=== PATIENT | male | born 1955 | race Caucasian/White ===

== ENCOUNTER 2019-08-26 14:56 | Inpatient (IN) | payer OTHER ==
--- NOTE | 2019-08-26 15:37 | PDOC ---
History of Present Illness - General Chief Complaint: Pain, Acute Stated Complaint: ABD PAIN, VOMITING History Source: Patient Exam Limitations: No Limitations - History of Present Illness Initial Comments: Grady is a 64 yo M w a hx of crohns disease who presents to the [facility] er with left sided abdominal pain which began 2 days prior on . Patient states that mid afternoon he ate some eggplant parmesan which he thinks was bad and afterwards the patient began having left sided lower abdominal pain. The pain was associated with nausea but no emesis. He reports the pain was around 6/10 and stayed the same for 2 days until this morning when he took omeprazole and tums which made him feel better. The patient had no diarrhea but had associated constipation for which he took some laxatives and experienced relief. The patient reports not experiencing a crohns exacerbation in the past 10 years. Patient also has been experiencing chills and sweats on and off for the past 2 days. - Takes bisalizine as daily controller medication for crohns. (4 pills BID) Denies fevers, headache, vomiting, diarrhea, chest pain, SOB, difficulty breathing, dysuria, frequency, urgency, back pain PCP: Christina Coello GI: Dr. Chun PSH: Cyst removals from arms Social Hx: Recreational drinker. Denies smoking or illicit drug usage Allergies: Penicillins Past History - Medical History Allergies/Adverse Reactions: Allergies Allergy/AdvReac Type Severity Reaction Status Date / Time Penicillins Allergy Mild Verified 09/10/12 18:43 Home Medications: Ambulatory Orders Doxycycline Hyclate [Vibramycin -] 100 mg PO BID #14 capsule 09/10/12 Mesalamine [Asacol] mg PO 09/10/12 COPD: No GI Disorders: Yes (crohn's) - Immunization History Immunization Up to Date: No - Psycho-Social/Smoking History Smoking Status: No Smoking History: Never smoked Have you smoked in the past 12 months: No Number of Cigarettes Smoked Daily: 0 Information on smoking cessation initiated: No - Substance Abuse Hx (Audit-C & DAST Scrn) How often the patient has a drink containing alcohol: 2-4 times / month Number of drinks the patient has on a typical day: 1 or 2 How often the patient has six or more drinks on one occasion: Monthly Score: In Men: 4 or > Positive; In Women: 3 or > Positive: 4 Screen Result (Pos requires Nsg. Audit-10AR): Positive In the last yr the pt used illegal drug/Rx for NonMed reason: No Score: Yes response is considered Positive: 0 Screen Result (Positive result requires Nsg. DAST-10): Negative Review of Systems - Review of Systems Able to Perform ROS?: Yes Comments:: CONSTITUTIONAL: Present: Chills, loss of appetitie Absent: fever, diaphoresis, generalized weakness, malaise HEENT: Absent: rhinorrhea, nasal congestion, throat pain, throat swelling, difficulty swallowing, mouth swelling, ear pain, eye pain, visual Changes CARDIOVASCULAR: Absent: chest pain, syncope, palpitations, irregular heart rate, lightheadedness, peripheral edema RESPIRATORY: Absent: cough, shortness of breath, dyspnea with exertion, orthopnea, wheezing, stridor, hemoptysis GASTROINTESTINAL: Present: Abdominal pain, nausea, constipation Absent: abdominal distension, vomiting, diarrhea, melena, hematochezia GENITOURINARY: Absent: dysuria, frequency, urgency, hesitancy, hematuria, flank pain, genital pain MUSCULOSKELETAL: Absent: myalgia, arthralgia, joint swelling SKIN: Absent: rash, itching, pallor HEMATOLOGIC/IMMUNOLOGIC: Absent: easy bleeding, easy bruising, lymphadenopathy, frequent infections ENDOCRINE: Absent: unexplained weight gain, unexplained weight loss, heat intolerance, cold intolerance NEUROLOGIC: Absent: headache, focal weakness or paresthesias, dizziness, unsteady gait, seizure, mental status changes, bladder or bowel incontinence PSYCHIATRIC: Absent: anxiety, depression, suicidal or homicidal ideation, hallucinations. *Physical Exam - Vital Signs Last Vital Signs Temp Pulse Resp BP Pulse Ox 98.8 F 92 H 16 125/92 99 08/26/19 14:58 08/26/19 14:58 08/26/19 14:58 08/26/19 14:58 08/26/19 14:58 - Physical Exam GENERAL: Well developed, well nourished. Awake and alert. No acute distress. HEENT: Normocephalic, atraumatic. PERRLA, EOMI. No conjunctival pallor. Sclera are non- icteric. Moist mucous membranes. Oropharynx is clear. NECK: Supple. Full ROM. CARDIOVASCULAR: Regular rate and rhythm. No murmurs, rubs, or gallops. Distal pulses are 2+ and symmetric. PULMONARY: No evidence of respiratory distress. Lungs clear to auscultation bilaterally. No wheezing, rales or rhonchi. ABDOMINAL: There is mild LLQ abdominal TTP with deep palpation. Abdomen is soft, not rigid. There are no peritoneal signs. No guarding or rebound. Normal bowel sounds. Overall, abdomen is soft non-distended. There is no tenderness in the abdomen anywhere other than the LLQ. GENITOURINARY: No testicular TTP. No perineal erythema. No hernia appreciated. b/l cremasteric intact. MUSCULOSKELETAL: Normal range of motion at all joints. No bony deformities or tenderness. No CVA tenderness. EXTREMITIES: No cyanosis. No clubbing. No edema. No calf tenderness. SKIN: Warm and dry. Normal capillary refill. No rashes. No jaundice. NEUROLOGICAL: Alert, awake, appropriate. Cranial nerves 2-12 intact. No deficits to light touch in face, upper extremities and lower extremities. No motor deficits in the in face, upper extremities and lower extremities. Normal speech. Gait is normal without ataxia. PSYCHIATRIC: Cooperative. Good eye contact. Appropriate mood and affect. ED Treatment Course - LABORATORY CBC & Chemistry Diagram: 08/26/19 16:07 08/26/19 16:07 Medical Decision Making - Medical Decision Making Grady is a 64 yo M w a hx of crohns disease who presents to the [facility] er with left sided abdominal pain which began 2 days prior on . Patient states that mid afternoon he ate some eggplant parmesan which he thinks was bad and afterwards the patient began having left sided lower abdominal pain. The pain was associated with nausea but no emesis. He reports the pain was around 6/10 an d stayed the same for 2 days until this morning when he took omeprazole and tums which made him feel better. The patient had no diarrhea but had associated constipation for which he took some laxatives and experienced relief. The patient reports not experiencing a crohns exacerbation in the past 10 years. Patient also has been experiencing chills and sweats on and off for the past 2 days. Vital Signs Temp Pulse Resp BP Pulse Ox 98.8 F 92 H 16 125/92 99 08/26/19 14:58 08/26/19 14:58 08/26/19 14:58 08/26/19 14:58 08/26/19 14:58 DDx IBNLT: Gastroenteritis, Crohns disease exacerbation, Crohn's complication - abscess, diverticulitis, fistula, obstruction, electrolyte/metabolic disturbance, hernia, UTI, pylo Plan: Labs, urine, CTAP, analgesia, IV hydration, re-assess Labs: Elevated WBC count to 20 Urine: Unremarkable CTAP: Intussisception Re-assessment: Patient made aware of diagnosis and plan for surgical consult, likely surgery, and admission to hospital Surgical Consult: I spoke with Dr. Herrera who is aware of patient and will fol low case and potentially do surgery on patient when deemed appropriate - NPO - IV hydration - Cefazolin Disposition: Admit - COVID swab - Spoke with patient and family at length regarding diagnosis and treatment plan. Discharge - Discharge Information Problems reviewed: Yes Clinical Impression/Diagnosis: Intussusception Abdominal pain Qualifiers: Abdominal location: left lower quadrant Qualified Code(s): R10.32 - Left lower quadrant pain Condition: Stable - Admission Yes - Follow up/Referral - Patient Discharge Instructions - Post Discharge Activity
[2019-08-26] MEDS ORDERED: SODIUM CHLORIDE 1,000 ML IV STA (15:54)
[2019-08-26] MEDS ORDERED: FAMOTIDINE 20 MG/50 ML IVPB 20 MG/50 ML MG IVPB ONE ×2 (15:54→16:27)
[2019-08-26] MEDS ORDERED: ACETAMINOPHEN 1000 MG/100 ML VIAL (NON FORMULARY) IVPB ONE (15:54)
[2019-08-26] MEDS ORDERED: ONDANSETRON 4 MG/2 ML VIAL IVPUSH ONE (15:55)
[2019-08-26] MEDS ORDERED: ACETAMINOPHEN INJECTION 100 ML IVPB ONE (16:01)
[2019-08-26 16:20] LABS: BASO % 0.1 % (0-2.0); HEMATOCRIT 45.1 % (35.4-49); LYMPH % 7.2 % (8-40); MCH 31.4 pg (25.7-33.7); MCHC 33.3 g/dl (32.0-35.9); MEAN CELL VOLUME 94.3 fl (80-96); MEAN PLT VOLUME 7.5 fl (7.5-11.1); NEUT % 82.7 % (42.8-82.8); PLATELET COUNT 336 K/MM3 (134-434); RBC 4.78 M/mm3 (4.00-5.60); RDW 13.1 % (11.9-15.9); WHITE BLOOD COUNT 20.3 K/mm3 (4.0-10.0)
[2019-08-26 16:27] LABS: INR 1.15 (0.83-1.09); PROTHROMBIN TIME (PATIENT) 13.6 SEC (9.7-13.0)
[2019-08-26 16:29] LABS: ACTIVATED PTT 28.5 SECONDS (25.2-36.5)
[2019-08-26 16:48] LABS: PLATELET ESTIMATE ADEQUATE
[2019-08-26] MEDS ORDERED: MAG HYDROX/AL HYDROX/SIMETH -MYLANTA- ORAL SUSPENSION PO ONE (17:12)
[2019-08-26] MEDS ORDERED: METOCLOPRAMIDE HCL INJECTION 10 MG/2 ML VIAL IVPUSH ONE (17:13)
[2019-08-26] MEDS ORDERED: METOCLOPRAMIDE HCL INJECTION 10 MG/2 ML VIAL ONE (17:16)
[2019-08-26] MEDS ORDERED: MAG HYDROX/AL HYDROX/SIMETH 30 ML UNIT-DOSE CUP ONE (17:16)
[2019-08-26 17:18] LABS: ALBUMIN 4.2 g/dl (3.4-5.0); BLOOD UREA NITROGEN 24.7 mg/dL (7-18); CALCIUM 9.6 mg/dL (8.5-10.1); CREATININE 0.9 mg/dL (0.55-1.3); MAGNESIUM 2.2 mg/dL (1.8-2.4); PHOSPHOROUS 2.7 mg/dL (2.5-4.9); POTASSIUM 3.4 mmol/L (3.5-5.1); TOT PROT 7.1 g/dl (6.4-8.2)
[2019-08-26] MEDS ORDERED: POTASSIUM CHLORIDE ORAL LIQUID 20 MEQ/15 ML PO ONE (17:30)
[2019-08-26] MEDS ORDERED: LACTATED RINGERS SOLUTION 1,000 ML/1,000 ML INFUS.BAG IV ONE (17:30)
[2019-08-26] MEDS ORDERED: POTASSIUM CHLORIDE ORAL LIQUID 20 MEQ/15 ML ONE (18:09)
[2019-08-26] MEDS ORDERED: LACTATED RINGERS SOLUTION 1,000 ML/1,000 ML INFUS.BAG IV STA (19:05)
[2019-08-26 20:36] LABS: PH,URINE 8.5 (5.0-8.0); URINE APPEARANCE Clear; URINE BILIRUBIN Negative (NEGATIVE); URINE COLOR Yellow; URINE GLUCOSE (UA) Negative (NEGATIVE); URINE KETONE Negative (NEGATIVE); URINE LEUK ESTERASE Negative (NEGATIVE); URINE NITRITE Negative (NEGATIVE); URINE PROTEIN Negative (NEGATIVE); URINE UROBILINOGEN 0.2 mg/dL (0.2-1.0)
[2019-08-26 20:55] LABS: EPI CELLS 2.3 /uL (0-25.1); HYALINE CASTS 0.25 /uL (0-3.1); URINE BACTERIA 0.9 /uL (0-1359); URINE RBC 73.6 /uL (0-23.9); URINE WBC 1.9 /uL (0-25.8)
[2019-08-26] MEDS ORDERED: LACTATED RINGERS SOLUTION 1,000 ML/1,000 ML INFUS.BAG IV SCH (21:30)
[2019-08-26] MEDS ORDERED: ceFAZolin 2 GRAM PREMIX BAG IVPB ONE (21:40)
[2019-08-26] MEDS ORDERED: CEFAZOLIN 2 GM/D5W 2 GM/50 ML ML IVPB ONE (21:45)
--- NOTE | 2019-08-26 21:46 | PN ---
Teaching Attending Note Name of Resident: Abad Dumas ATTENDING PHYSICIAN STATEMENT I saw and evaluated the patient. I reviewed the resident's note and discussed the case with the resident. I agree with the resident's findings and plan as documented. SUBJECTIVE: Patient is a 64 year old man with a PMH of Crohn's disease, Hematuria and Penic illin allergy who presents to the ER with left sided abdominal pain for two days. Patient states that mid afternoon he ate some eggplant parmesan which he thinks was bad and afterwards the patient began having left sided lower abdominal pain. The pain was associated with nausea but no emesis. He reports the pain was around 6/10 in intensity and stayed the same for 2 days until this morning when he took Omeprazole and Tums which made him feel better. The patient had no diarrhea but had associated constipation for which he took some laxatives and experienced relief. The patient reports not experiencing a Crohn's exacerbation in the past 10 years. Had a colonoscopy 5 years ago. Patient also has been experiencing chills and sweats on and off for the past two days. Denies fevers, headache, vomiting, diarrhea, chest pain, SOB, difficulty breathing, dysuria, frequency, urgency or back pain. Smokes Marijuana on weekends. Denies alcohol, tobacco or illicit drug use. No sick contacts or recent travels. Patient has a family history of lung cancer in his mother. OBJECTIVE: Alert Vital Signs Period Temp Pulse Resp BP Sys/Hurt Pulse Ox Last 24 Hr 98.8 F 92 16 125/92 99 HEENT: No Jaundice, eye redness or discharge, PERRLA, EOMI. Normocephalic, atraumatic. External ears are normal and hearing is grossly intact. No nasal discharge. Neck: Supple, nontender. No palpable adenopathy or thyromegaly. No JVD Chest: Good effort. Clear to auscultation and percussion. Heart: Regular. No S3, rub or murmur Abdomen: Not distended, soft, LLQ tenderness and no HSM. No rebound or guarding. Normal bowel sounds. Ext: Peripheral pulses intact. No leg edema. Skin: Warm and dry. No petechiae, rash or ecchymosis. Neuro: Alert. Oriented x3. CN 2-12 grossly intact. Sensation grossly intact in all four extremities and DTR are symmetric. Psych: Appropriate mood and affect. Good insight. Home Medications Medication Instructions Recorded Doxycycline Hyclate [Vibramycin -] 100 mg PO BID #14 capsule 09/10/12 Mesalamine [Asacol] mg PO 09/10/12 Abnormal Lab Results 08/26/19 08/26/19 08/26/19 16:07 16:07 16:07 WBC 20.3 H Absolute Neuts (auto) 16.8 H Lymphocytes % 7.2 L PT with INR 13.60 H INR 1.15 H Potassium 3.4 L BUN 24.7 H AST 98 H Troponin I 0.06 H Lipase 417 H Urine pH Urine Blood 08/26/19 20:21 WBC Absolute Neuts (auto) Lymphocytes % PT with INR INR Potassium BUN AST Troponin I Lipase Urine pH 8.5 H Urine Blood 2+ H Current Medications Generic Name Dose Route Start Last Admin Trade Name Freq PRN Reason Stop Dose Admin Lactated Ringer's 1,000 ml in 1,000 mls @ 125 mls/hr 08/26/19 21:30 Lactated Ringers Solution IV ASDIR [facility] ASSESSMENT AND PLAN: 1. Crohn's flare up?/Intussusception - CT scan of abdomen/pelvis with IV and oral contrast showed proximal small bowel intussusception without evidence of bowel obstruction. Will do sepsis workup in view of significant leukocytosis. Will keep him NPO, get CXR, hydrate with IV NS and consult Surgery and GI. Hematuria is concerning - will repeat urinalysis in the morning - consult Urology and Nephrology for further workup. Hypokalemia is unexplained. Will check serum magnesium, give IV KCL. Mild troponin elevation likely due to demand ischemia - will trend troponin. EKG shows NSR at 87/minute and QTc [address]-T wave changes. ER staff prescribed Tylenol, IV Cefazolin, Regl an, KCL, Pepcid, Mylanta, Zofran and IV LR for the patient. Will treat patient with IV Levofloxacin and IV Flagyl, Tylenol PRN and consult ID. Viral testing for COVID-19 ordered and patient placed on airborne, droplet and contact isolation. 2. DVT prophylaxis - Lovenox 40 mg SQ q 24 hours. 3. Advance directives - Full code
[2019-08-26] MEDS ORDERED: CEFAZOLIN 1 GM/D5W 1 GM/50 ML BAG ONE (22:54)
[2019-08-26] MEDS ORDERED: SODIUM CHLORIDE 1,000 ML IV SCH (23:15)
--- NOTE | 2019-08-26 23:20 | HP ---
CHIEF COMPLAINT: Abdominal Pain PCP: Dr. Coello HISTORY OF PRESENT ILLNESS: Pt. is a 64 y.o. M w/ PMHx. of Crohn's Disease ( diagnosed 20+ years ago) presents with intermittent abdominal pain that began after eating an egg plant parmesan sandwich on . Pt. states that he has been having chills and sweats over the last 2 days. Pt. endorses nausea and the inability to take his Crohn's disease medication(Bisalazide) because he has been unable to tolerate PO. Pt. denies any fevers at home, vomiting, diarrhea or overt blood in his stool or urine. PT. endorses weight loss only over the last 2 days because of decreased PO intake. Pt. dneies any sick contacts or anyone one else eating the eggplant parmesean. Pt. stats he got this meal from a usual location and that there was nothing unusual about it. Pt. states that currently his pain has resolved. Upon discussion of hematuria Pt. endorses that at his PCP's office he has had a "little blood" in his urine for a long time now. Pt. 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 Pt. endorses taking Omeprazole and TUMs with minimal relief for the abdominal pain. Pt.s states he had a colonoscopy [address] Chun at [facility] in the [place] but that no polyps or biopsy was performed, in fact he was told his Crohn's Disease appeared better controlled. ER course was notable for: (1)CBC, CM, UA, EKG, CT AP (2) Surgery Consult, IVF, Tylenol, Zofran, Famotidine, T&S, Mylanta (3)KCL, Reglan, COVID swab Recent Travel: No PAST MEDICAL HISTORY: As above PAST SURGICAL HISTORY: LUE Lipoma removal Social History: Smoking: Denies Alcohol: 2.3 beers/ weekend Drugs: Marijuana ("couple joints on the weekend") Pt. 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 Allergies Penicillins Allergy (Mild, Verified 09/10/12 18:43)- Pt. does not know the reaction, only was told as a child not to take Penicillin again. HOME MEDICATIONS: Home Medications Medication Instructions Recorded Doxycycline Hyclate [Vibramycin -] 100 mg PO BID #14 capsule 09/10/12 Mesalamine [Asacol] mg PO 09/10/12 REVIEW OF SYSTEMS As above PHYSICAL EXAMINATION Vital Signs - 24 hr 08/26/19 08/26/19 14:58 22:48 Temperature 98.8 F 98.4 F Pulse Rate 92 H Pulse Rate [ 83 Right Radial] Respiratory 16 Rate Blood Pressure 125/92 Blood Pressure 117/66 [Left Arm] O2 Sat by Pulse 99 98 Oximetry (%) GENERAL: Awake, alert, and fully oriented, in no acute distress. HEAD: Normal with no signs of trauma. EYES: Extraocular movements intact, sclera anicteric, conjunctiva clear. EARS, NOSE, THROAT: Dry mucous membranes. LUNGS: Breath sounds equal, clear to auscultation bilaterally. No wheezes, and no crackles. No accessory muscle use. HEART: Regular rate and rhythm, normal S1 and S2 without murmur ABDOMEN: Soft, nontender, not distended, normoactive bowel sounds, no guarding, no rebound, no masses. UPPER EXTREMITIES: warm, well-perfused. No cyanosis. No clubbing. No peripheral edema. LOWER EXTREMITIES: 2+ dorsal pedal pulses, warm, well-perfused. No calf tenderness. No peripheral edema. NEUROLOGICAL: Normal speech. Normal gait. PSYCHIATRIC: Cooperative. Good eye contact. Appropriate mood and affect. SKIN: Warm, dry, normal turgor Laboratory Results - last 24 hr 08/26/19 08/26/19 08/26/19 16:07 16:07 16:07 WBC 20.3 H RBC 4.78 Hgb 15.0 Hct 45.1 MCV 94.3 MCH 31.4 MCHC 33.3 RDW 13.1 Plt Count 336 MPV 7.5 Absolute Neuts (auto) 16.8 H Neutrophils % 82.7 Neutrophils % (Manual) 76.0 Band Neutrophils % 3.0 Lymphocytes % 7.2 L Lymphocytes % (Manual) 13.0 Monocytes % 10.0 Monocytes % (Manual) 4 Eosinophils % 0.0 Eosinophils % (Manual) 0.0 Basophils % 0.1 Basophils % (Manual) 0.0 Nucleated RBC % 0 Platelet Estimate Adequate PT with INR 13.60 H INR 1.15 H PTT (Actin FS) 28.5 Sodium 138 Potassium 3.4 L Chloride 103 Carbon Dioxide 26 Anion Gap 9 BUN 24.7 H Creatinine 0.9 Est GFR (CKD-EPI)AfAm 105.72 Est GFR (CKD-EPI)NonAf 91.22 Random Glucose 101 Lactic Acid Calcium 9.6 Phosphorus 2.7 Magnesium 2.2 Total Bilirubin 1.0 AST 98 H ALT 44 Alkaline Phosphatase 59 Troponin I 0.06 H Total Protein 7.1 Albumin 4.2 Lipase 417 H Urine Color Urine Appearance Urine pH Ur Specific [place] Urine Protein Urine Glucose (UA) Urine Ketones Urine Blood Urine Nitrite Urine Bilirubin Urine Urobilinogen Ur Leukocyte Esterase Urine WBC (Auto) Urine RBC (Auto) Urine Casts (Auto) U Epithel Cells (Auto) Urine Bacteria (Auto) Blood Type Antibody Screen 08/26/19 08/26/19 08/26/19 16:07 16:07 20:21 WBC RBC Hgb Hct MCV MCH MCHC RDW Plt Count MPV Absolute Neuts (auto) Neutrophils % Neutrophils % (Manual) Band Neutrophils % Lymphocytes % Lymphocytes % (Manual) Monocytes % Monocytes % (Manual) Eosinophils % Eosinophils % (Manual) Basophils % Basophils % (Manual) Nucleated RBC % Platelet Estimate PT with INR INR PTT (Actin FS) Sodium Potassium Chloride Carbon Dioxide Anion Gap BUN Creatinine Est GFR (CKD-EPI)AfAm Est GFR (CKD-EPI)NonAf Random Glucose Lactic Acid 1.4 Calcium Phosphorus Magnesium Total Bilirubin AST ALT Alkaline Phosphatase Troponin I Total Protein Albumin Lipase Urine Color Yellow Urine Appearance Clear Urine pH 8.5 H Ur Specific [place] 1.015 Urine Protein Negative Urine Glucose (UA) Negative Urine Ketones Negative Urine Blood 2+ H Urine Nitrite Negative Urine Bilirubin Negative Urine Urobilinogen 0.2 Ur Leukocyte Esterase Negative Urine WBC (Auto) 1.9 Urine RBC (Auto) 73.6 Urine Casts (Auto) 0.25 U Epithel Cells (Auto) 2.3 Urine Bacteria (Auto) 0.9 Blood Type A POSITIVE Antibody Screen Negative 08/26/19 22:42 WBC RBC Hgb Hct MCV MCH MCHC RDW Plt Count MPV Absolute Neuts (auto) Neutrophils % Neutrophils % (Manual) Band Neutrophils % Lymphocytes % Lymphocytes % (Manual) Monocytes % Monocytes % (Manual) Eosinophils % Eosinophils % (Manual) Basophils % Basophils % (Manual) Nucleated RBC % Platelet Estimate PT with INR INR PTT (Actin FS) Sodium Potassium Chloride Carbon Dioxide Anion Gap BUN Creatinine Est GFR (CKD-EPI)AfAm Est GFR (CKD-EPI)NonAf Random Glucose Lactic Acid Calcium Phosphorus Magnesium Total Bilirubin AST ALT Alkaline Phosphatase Troponin I 0.07 H Total Protein Albumin Lipase Urine Color Urine Appearance Urine pH Ur Specific [place] Urine Protein Urine Glucose (UA) Urine Ketones Urine Blood Urine Nitrite Urine Bilirubin Urine Urobilinogen Ur Leukocyte Esterase Urine WBC (Auto) Urine RBC (Auto) Urine Casts (Auto) U Epithel Cells (Auto) Urine Bacteria (Auto) Blood Type Antibody Screen ASSESSMENT/PLAN: Pt. is a 64 y.o. M w/ PMHx. of Crohn's Disease (diagnosed 20+ years ago) presents with intermittent abdominal pain that began after eating an egg plant parmesan sandwich on . Pt. states that he has been having chills and sweats over the last 2 days. #Intussusception can be 2/2 to Crohns Disease however cannot r/o malignancy which accounts for ~5 0% of cases Surgery consult appreciated c/w Bisalazide once medications confirmed in AM CT A/P: proximal small bowel intussusception, intermittent?, w/o evidence of obstruction. Slides 38-41 show the typical target sign/ telescoping bowel lumen, ED resident discussed with Dr. Maher that there is no evidence of ischemia or inflammation #Hematuria UA: 2+ blood Pt. states he has never been worked up. Extra intestinal manifestation of IBD vs. side effect of ASA? Urology and Nephrology consults appreciated to r/o glomeurolnephritis, Tubulointerstitial nephritis, AA Amyloidosis and IGA Nephropathy (rare to be concomitant with Crohn's disease), most likely 2/2 frequent renal stones which is common in Crohn's Pt.s because of fat malabsorption (binding to calcium in gut lumen and leaving oxalate to be absorbed and deposited in the lumen of the renal tubules) associated also with dehydration from decreased PO intake. Stones can also be Uric acid which would be secondary to increased uptake in injured colon. #Leukocytosis WBC: 20.6 Most likely reactive however with clinical manifestation of chills, moderate suspicion for infection. f/u Blood cultures Given Ancef in ED, will switch to Levaquin and Flagyl for Penicillin allergy #FEN NS@ 75 Hypokalemic to 3.4 on admission, given 40 PO in ED, will add 40 meq to IV, from renal losses? Pt. denies diarrhea or vomiting. Magenisium: 2.2 NPO #DVT Ppx. Lovenox 40 Visit type - Emergency Visit Emergency Visit: Yes ED Registration Date: 08/26/19 Care time: The patient presented to the Emergency Department on the above date and was hospitalized for further evaluation of their emergent condition. - New Patient This patient is new to me today: Yes Date on this admission: 08/26/19 - Critical Care Critical Care patient: No ATTENDING PHYSICIAN STATEMENT I saw and evaluated the patient. I reviewed the resident's note and discussed the case with the resident. I agree with the resident's findings and plan as documented. SUBJECTIVE: OBJECTIVE: ASSESSMENT AND PLAN:
[2019-08-27] MEDS ORDERED: ACETAMINOPHEN 500 MG TABLET (FP) PO ONE (01:04)
[2019-08-27] MEDS ORDERED: MELATONIN 5 MG TABLETS PO ONE (01:04)
[2019-08-27 01:22] VITALS: BMI 25.0
[2019-08-27] MEDS: POTASSIUM CHLORIDE 40 MEQ in SODIUM CHLORIDE 1,000 ML IVPB SCH ×2 (01:36→14:55)
[2019-08-27 07:46] LABS: BASO % 0.2 % (0-2.0); EOS % 0.1 % (0-4.5); HEMATOCRIT 42.5 % (35.4-49); HEMOGLOBIN 14.2 GM/dL (11.7-16.9); LYMPH % 11.1 % (8-40); MCH 31.4 pg (25.7-33.7); MCHC 33.4 g/dl (32.0-35.9); MEAN CELL VOLUME 94.1 fl (80-96); MEAN PLT VOLUME 8.1 fl (7.5-11.1); MONO % 10.7 % (3.8-10.2); NEUT % 77.9 % (42.8-82.8); PLATELET COUNT 289 K/MM3 (134-434); RBC 4.52 M/mm3 (4.00-5.60); RDW 13.2 % (11.9-15.9); WHITE BLOOD COUNT 17.8 K/mm3 (4.0-10.0)
--- NOTE | 2019-08-27 07:50 | CONSULT ---
Consult Consult Specialty:: Nephrology Reason for Consultation:: microscopic hematuria - History of Present Illness Chief Complaint: abdominal pain History of Present Illness: Pt is a 64 year old gentleman with pmhx of crohns disease who presents to the ER with abdominal pain. He was found to have intussusception and was admitted for further surgical management. He also complained of chills and fevers. He was found to have hematuria on ua and I was called to evaluate him. He has had this in the past. He did have a cystoscopy that he says was normal. He denies gross hematuria or dark colored urine. He denies change in urine color when he has an URI. He denies nsaid use. - History Source History Provided By: Patient, Medical Record - Past Medical History Gastrointestinal: Yes: Inflamatory Bowel Disease - Smoking History Smoking history: Current some day smoker Have you smoked in the past 12 months: No Aproximately how many cigarettes per day: 0 Home Medications - Allergies Allergies/Adverse Reactions: Allergies Allergy/AdvReac Type Severity Reaction Status Date / Time Penicillins Allergy Mild Verified 09/10/12 18:43 - Home Medications Home Medications: Ambulatory Orders Doxycycline Hyclate [Vibramycin -] 100 mg PO BID #14 capsule 09/10/12 Mesalamine [Asacol] mg PO 09/10/12 Family Medical History Family History: Denies Review of Systems - Review of Systems Constitutional: reports: Chills, Fever, Malaise Eyes: reports: No Symptoms HENT: reports: No Symptoms Neck: reports: No Symptoms Cardiovascular: reports: No Symptoms Respiratory: reports: No Symptoms Gastrointestinal: reports: Abdominal Pain Genitourinary: reports: No Symptoms Musculoskeletal: reports: No Symptoms Integumentary: reports: No Symptoms Neurological: reports: No Symptoms Endocrine: reports: No Symptoms Hematology/Lymphatic: reports: No Symptoms Psychiatric: reports: No Symptoms Physical Exam Vital Signs: Vital Signs Temperature 98.3 F 08/27/19 05:00 Pulse Rate 70 08/27/19 05:00 Respiratory Rate 18 08/27/19 01:05 Blood Pressure 130/77 08/27/19 05:00 O2 Sat by Pulse Oximetry (%) 96 08/27/19 01:05 Constitutional: Yes: Calm Eyes: Yes: Conjunctiva Clear HENT: Yes: Atraumatic Cardiovascular: Yes: S1, S2 Respiratory: Yes: CTA Bilaterally Gastrointestinal: Yes: Soft Renal/: Yes: WNL Musculoskeletal: Yes: WNL Edema: No Neurological: Yes: Oriented Imaging - Results Cat Scan: Report Reviewed Problem List - Problems (1) Hematuria Code(s): R31.9 - HEMATURIA, UNSPECIFIED (2) Abdominal pain Code(s): R10.9 - UNSPECIFIED ABDOMINAL PAIN Qualifiers: Abdominal location: left lower quadrant Qualified Code(s): R10.32 - Left lower quadrant pain (3) Intussusception Code(s): K56.1 - INTUSSUSCEPTION Assessment/Plan Current Medications Generic Name Dose Route Start Last Admin Trade Name Freq PRN Reason Stop Dose Admin Acetaminophen 1,000 mg 08/27/19 15:00 08/27/19 14:55 Ofirmev Injection - IVPB 08/28/19 09:01 1,000 mg Q6H BLUE Administration Heparin Sodium (Porcine) 5,000 unit 08/28/19 10:00 Heparin - SQ BID BLUE Lactated Ringer's 1,000 ml in 1,000 mls @ 125 mls/hr 08/27/19 14:15 08/27/19 16:22 Lactated Ringers Solution IV Not Given ASDIR BLUE Morphine Sulfate 4 mg 08/27/19 14:25 Morphine Injection - IVPUSH Q4H PRN PAIN LEVEL 1-5 Ondansetron HCl 4 mg 08/27/19 14:05 08/27/19 15:36 Zofran Injection IVPUSH 4 mg Q6H PRN Administration NAUSEA AND/OR VOMITING Impression 1. microscopic hematuria 2. abd pain 3. intussusception 4. crohns disease Plan - hematuria appears chronic - check renal ultrasound when possible - surgery on board for OR today - cont fluids - follow cultures - will need outpt workup - if urology workup was negative and hematuria is glomerular in nature, then he should get workup. IgA is in the differential.
[2019-08-27 07:54] LABS: INR 1.12 (0.83-1.09); PROTHROMBIN TIME (PATIENT) 13.2 SEC (9.7-13.0)
[2019-08-27 08:13] LABS: ALBUMIN 3.8 g/dl (3.4-5.0); BILIRUBIN,TOTAL 1.1 mg/dL (0.2-1); BLOOD UREA NITROGEN 11.7 mg/dL (7-18); CALCIUM 8.9 mg/dL (8.5-10.1); CREATININE 0.8 mg/dL (0.55-1.3); PHOSPHOROUS 2.6 mg/dL (2.5-4.9); POTASSIUM 3.7 mmol/L (3.5-5.1); TOT PROT 6.6 g/dl (6.4-8.2)
--- NOTE | 2019-08-27 09:20 | CONSULT ---
- Consultation REQUESTING PROVIDER: Sara EWING CONSULT REQUEST: We have been asked to surgically evaluate this patient for abdominal pain. PCP:Rosalino Burgess MD HISTORY OF PRESENT ILLNESS: JENNIE who is a 64 yo male w/a h/o Crohns disease who presents to the [facility] ED with left sided abdominal pain which began 2 days ago. Patient states that mid afternoon he ate some eggplant parmesan which he thinks was bad and afterwards the patient began having left sided lower abdominal pain. The pain was associated with nausea but no emesis. He reports the pain was around 6/10 and stayed the same for 2 days until this morning when he took omeprazole and Tums which made him feel better. The patient had no diarrhea but had associated constipation for which he took some laxatives and experienced relief. The patient reports not experiencing a Crohns exacerbation in the past 10 years. Patient also has been experiencing chills and sweats on and off for the past 2 days. Pain is crampy and w/o radiation; he denies any other GI/ c/o's; he has never had a ny abdominal surgery or taken steroids for the Crohns disease; he has had the dx. for ~ 20 years and probably before that. His Crohns was discovered when he had a GI parasite??. PMHx: as above PSHx: sebaceous cyst removal Home Medications Medication Instructions Recorded Doxycycline Hyclate [Vibramycin -] 100 mg PO BID #14 capsule 09/10/12 Mesalamine [Asacol] mg PO 09/10/12 Allergies Allergy/AdvReac Type Severity Reaction Status Date / Time Penicillins Allergy Mild Verified 09/10/12 18:43 REVIEW OF SYSTEMS: CONSTITUTIONAL: Absent: fever, chills, diaphoresis, generalized weakness, malaise, loss of appetite, weight change CARDIOVASCULAR: Absent: chest pain, syncope, palpitations, irregular heart rate, lightheadedness, peripheral edema RESPIRATORY: Absent: cough, shortness of breath, dyspnea with exertion, wheezing, stridor, hemoptysis GASTROINTESTINAL: Present: abdominal pain, abdominal distension, nausea, vomiting, diarrhea, constipation.Absent:melena, hematochezia GENITOURINARY: Absent: dysuria, frequency, urgency, hesitancy, hematuria, flank pain, genital pain MUSCULOSKELETAL: Absent: myalgia, arthralgia, joint swelling, back pain, neck pain SKIN: Absent: rash, itching, pallor HEMATOLOGIC/IMMUNOLOGIC: Absent: easy bleeding, easy bruising, lymphadenopathy NEUROLOGIC: Absent: headache, focal weakness, paresthesias, dizziness, unsteady gait, seizure, mental status changes, bladder or bowel incontinence PSYCHIATRIC: Absent: anxiety, depression, suicidal or homicidal ideation, hallucinations. PHYSICAL EXAM: GENERAL: Awake, alert, and fully oriented, in no slight distress. HEAD: Normal with no signs of trauma. EYES: PERRL, sclera anicteric, conjunctiva clear. NECK: Normal ROM, supple without lymphadenopathy, JVD, or masses. ABDOMEN: Soft, left sided tenderness, not distended, normoactive bowel sounds, no guarding, no rebound, no masses. No organomegaly. No hernias MUSCULOSKELETAL: Normal ROM at all joints. No bony deformities or tenderness. No CVA tenderness. UPPER EXTREMITIES: 2+ pulses, warm, well-perfused. No cyanosis. Cap refill <2 seconds. No peripheral edema. LOWER EXTREMITIES: 2+ pulses, warm, well-perfused. No calf tenderness. No peripheral edema. NEUROLOGICAL: Normal speech, gait not observed. PSYCH: Cooperative. Good eye contact. Appropriate mood and affect. SKIN: Warm, dry, normal turgor, no rashes or lesions noted. Vital Signs Temperature 98.3 F 08/27/19 05:00 Pulse Rate 70 08/27/19 05:00 Respiratory Rate 18 08/27/19 01:05 Blood Pressure 130/77 08/27/19 05:00 O2 Sat by Pulse Oximetry (%) 98 08/27/19 08:44 Lab Results WBC 17.8 K/mm3 (4.0-10.0) H 08/27/19 06:20 RBC 4.52 M/mm3 (4.00-5.60) 08/27/19 06:20 Hgb 14.2 GM/dL (11.7-16.9) 08/27/19 06:20 Hct 42.5 % (35.4-49) 08/27/19 06:20 MCV 94.1 fl (80-96) 08/27/19 06:20 MCHC 33.4 g/dl (32.0-35.9) 08/27/19 06: RDW 13.2 % (11.9-15.9) 08/27/19 06:20 Plt Count 289 K/MM3 (134-434) 08/27/19 06:20 INR 1.12 (0.83-1.09) H 08/27/19 06:20 Sodium 137 mmol/L (136-145) 08/27/19 06:20 Potassium 3.7 mmol/L (3.5-5.1) 08/27/19 06:20 Chloride 102 mmol/L (98-107) 08/27/19 06:20 Carbon Dioxide 25 mmol/L (21-32) 08/27/19 06:20 Anion Gap 11 MMOL/L (8-16) 08/27/19 06:20 BUN 11.7 mg/dL (7-18) 08/27/19 06:20 Creatinine 0.8 mg/dL (0.55-1.3) 08/27/19 06:20 Random Glucose 96 mg/dL (74-106) 08/27/19 06:20 Calcium 8.9 mg/dL (8.5-10.1) 08/27/19 06:20 Blood Type A POSITIVE 08/26/19 22:42 Antibody Screen Negative 08/26/19 22:42 CT scan a/p reviewed IMP: small bowel intussusception w/o evidence of an sbo but w/abdominal tenderness and elevated WBC count. PLAN: D/w the patient that intussusception in an adult is usually related to small bowek pathology which needs to be identified; d/w him laparotomy and possible small bowel resection; r/b/t/a's d/w him and he will give informed consent; to OR today; this may or may not jay related to his Crohns disease. Mert Herrera MD FACS
[2019-08-27] MEDS ORDERED: ENOXAPARIN NA (PORCINE) 40 MG/0.4 ML DISP.SYRIN SQ SCH (10:00)
[2019-08-27] MEDS ORDERED: PROPOFOL 20 ML ONE ×2 (10:52)
[2019-08-27] MEDS ORDERED: ROCURONIUM BROMIDE 50 MG/5 ML SYRINGE ONE ×2 (10:52)
[2019-08-27] MEDS ORDERED: fentaNYL CITRATE 250 MCG/5 ML VIAL ONE (10:52)
[2019-08-27] MEDS ORDERED: MIDAZOLAM HCL 2 MG/2 ML SINGLE DOSE VIAL ONE ×2 (10:52)
[2019-08-27] MEDS ORDERED: SUCCINYLCHOLINE CHLORIDE 200 MG/10 ML SYRINGE ONE (10:52)
[2019-08-27] MEDS ORDERED: BUPIVACAINE LIPOSOME/PF (EXPAREL) 266 MG/20 ML VIAL ONE (10:55)
[2019-08-27] MEDS ORDERED: BUPIVACAINE HCL 100 ML ONE (11:00)
[2019-08-27] MEDS ORDERED: CLINDAMYCIN 600 MG PREMIX BAG IVPB ONE (11:52)
[2019-08-27] MEDS ORDERED: NEOSTIGMINE METHYLSULFATE 0.5 MG/ML - 10 ML MDV ONE (13:35)
--- NOTE | 2019-08-27 13:46 | PN ---
Teaching Attending Note Name of Resident: Frantz Ramos ATTENDING PHYSICIAN STATEMENT I saw and evaluated the patient. I reviewed the resident's note and discussed the case with the resident. I agree with the resident's findings and plan as documented. SUBJECTIVE: Seen and examined at bedside. Patient reports abdominal discomfort. Surgery to take patient to the OR today for laparotomy and possible small bowel resection. OBJECTIVE: ASSESSMENT AND PLAN: 8-year-old male with a past medical history of Crohn's disease presents with intermittent abdominal pain found to have small bowel intussusception #Intussusception Surgery on board appreciate recommendations Patient be taken to OR today for laparotomy and polyps possible small bowel resection #Hematuria This is longstanding and primary care physician is aware. Patient has had a cystoscopy several years ago Check renal ultrasounds, PSA Further work-up as outpatient #Leukocytosis Likely reactive secondary to intussusception Continue Levaquin and metronidazole Follow-up cultures
[2019-08-27] MEDS ORDERED: ONDANSETRON 4 MG/2 ML VIAL IVPUSH PRN (14:05)
[2019-08-27] MEDS ORDERED: ACETAMINOPHEN 1000 MG/100 ML VIAL (NON FORMULARY) IVPB SCH (14:15)
[2019-08-27] MEDS ORDERED: HYDROmorphone HCl 2 MG/ML VIAL IVPUSH PRN (14:20)
[2019-08-27] MEDS ORDERED: morphine CARPU-JECT 4 MG/1 ML DISP.SYRIN IVPUSH PRN (14:25)
--- NOTE | 2019-08-27 14:47 | PN ---
Physical Exam: SUBJECTIVE: Patient seen and examined at the bedside, endorses abdominal pain, OBJECTIVE: Vital Signs Period Temp Pulse Resp BP Sys/Hurt Pulse Ox Last 24 Hr 98.2 F-98.8 F 70-92 16-18 117-132/66-92 96-99 GENERAL: The patient is awake, alert, and fully oriented, in no acute distress. HEAD: Normal with no signs of trauma. EYES: PERRL, extraocular movements intact, sclera anicteric, conjunctiva clear. No ptosis. ENT: Ears normal, nares patent, oropharynx clear without exudates, moist mucous membranes. NECK: Trachea midline, full range of motion, supple. LUNGS: Breath sounds equal, clear to auscultation bilaterally, no wheezes, no crackles, no accessory muscle use. HEART: Regular rate and rhythm, S1, S2 without murmur, rub or gallop. ABDOMEN: Soft, non-distended, marked tenderness to palpation in the LLQ EXTREMITIES: 2+ pulses, warm, well-perfused, no edema. NEUROLOGICAL: Cranial nerves II through XII grossly intact. Normal speech, gait not observed. PSYCH: Normal mood, normal affect. SKIN: Warm, dry, normal turgor, no rashes or lesions noted Laboratory Results - last 24 hr 08/26/19 08/26/19 08/26/19 06:20 16:07 16:07 WBC 20.3 H RBC 4.78 Hgb 15.0 Hct 45.1 MCV 94.3 MCH 31.4 MCHC 33.3 RDW 13.1 Plt Count 336 MPV 7.5 Absolute Neuts (auto) 16.8 H Neutrophils % 82.7 Neutrophils % (Manual) 76.0 Band Neutrophils % 3.0 Lymphocytes % 7.2 L Lymphocytes % (Manual) 13.0 Monocytes % 10.0 Monocytes % (Manual) 4 Eosinophils % 0.0 Eosinophils % (Manual) 0.0 Basophils % 0.1 Basophils % (Manual) 0.0 Nucleated RBC % 0 Platelet Estimate Adequate PT with INR 13.60 H INR 1.15 H PTT (Actin FS) 28.5 Sodium Potassium Chloride Carbon Dioxide Anion Gap BUN Creatinine Est GFR (CKD-EPI)AfAm Est GFR (CKD-EPI)NonAf Random Glucose Lactic Acid Calcium Phosphorus Magnesium Total Bilirubin AST ALT Alkaline Phosphatase Troponin I Total Protein Albumin Lipase Urine Color Urine Appearance Urine pH Ur Specific [place] Urine Protein Urine Glucose (UA) Urine Ketones Urine Blood Urine Nitrite Urine Bilirubin Urine Urobilinogen Ur Leukocyte Esterase Urine WBC (Auto) Urine RBC (Auto) Urine Casts (Auto) U Epithel Cells (Auto) Urine Bacteria (Auto) HIV Ag/Ab Combo Qual Negative Blood Type Antibody Screen 08/26/19 08/26/19 08/26/19 16:07 16:07 16:07 WBC RBC Hgb Hct MCV MCH MCHC RDW Plt Count MPV Absolute Neuts (auto) Neutrophils % Neutrophils % (Manual) Band Neutrophils % Lymphocytes % Lymphocytes % (Manual) Monocytes % Monocytes % (Manual) Eosinophils % Eosinophils % (Manual) Basophils % Basophils % (Manual) Nucleated RBC % Platelet Estimate PT with INR INR PTT (Actin FS) Sodium 138 Potassium 3.4 L Chloride 103 Carbon Dioxide 26 Anion Gap 9 BUN 24.7 H Creatinine 0.9 Est GFR (CKD-EPI)AfAm 105.72 Est GFR (CKD-EPI)NonAf 91.22 Random Glucose 101 Lactic Acid 1.4 Calcium 9.6 Phosphorus 2.7 Magnesium 2.2 Total Bilirubin 1.0 AST 98 H ALT 44 Alkaline Phosphatase 59 Troponin I 0.06 H Total Protein 7.1 Albumin 4.2 Lipase 417 H Urine Color Urine Appearance Urine pH Ur Specific [place] Urine Protein Urine Glucose (UA) Urine Ketones Urine Blood Urine Nitrite Urine Bilirubin Urine Urobilinogen Ur Leukocyte Esterase Urine WBC (Auto) Urine RBC (Auto) Urine Casts (Auto) U Epithel Cells (Auto) Urine Bacteria (Auto) HIV Ag/Ab Combo Qual Blood Type A POSITIVE Antibody Screen Negative 08/26/19 08/26/19 08/26/19 20:21 22:42 22:42 WBC RBC Hgb Hct MCV MCH MCHC RDW Plt Count MPV Absolute Neuts (auto) Neutrophils % Neutrophils % (Manual) Band Neutrophils % Lymphocytes % Lymphocytes % (Manual) Monocytes % Monocytes % (Manual) Eosinophils % Eosinophils % (Manual) Basophils % Basophils % (Manual) Nucleated RBC % Platelet Estimate PT with INR INR PTT (Actin FS) Sodium Potassium Chloride Carbon Dioxide Anion Gap BUN Creatinine Est GFR (CKD-EPI)AfAm Est GFR (CKD-EPI)NonAf Random Glucose Lactic Acid Calcium Phosphorus Magnesium Total Bilirubin AST ALT Alkaline Phosphatase Troponin I 0.07 H Total Protein Albumin Lipase Urine Color Yellow Urine Appearance Clear Urine pH 8.5 H Ur Specific [place] 1.015 Urine Protein Negative Urine Glucose (UA) Negative Urine Ketones Negative Urine Blood 2+ H Urine Nitrite Negative Urine Bilirubin Negative Urine Urobilinogen 0.2 Ur Leukocyte Esterase Negative Urine WBC (Auto) 1.9 Urine RBC (Auto) 73.6 Urine Casts (Auto) 0.25 U Epithel Cells (Auto) 2.3 Urine Bacteria (Auto) 0.9 HIV Ag/Ab Combo Qual Blood Type A POSITIVE Antibody Screen Negative 08/27/19 08/27/19 08/27/19 06:20 06:20 06:20 WBC 17.8 H RBC 4.52 Hgb 14.2 Hct 42.5 MCV 94.1 MCH 31.4 MCHC 33.4 RDW 13.2 Plt Count 289 MPV 8.1 Absolute Neuts (auto) 13.8 H Neutrophils % 77.9 Neutrophils % (Manual) Band Neutrophils % Lymphocytes % 11.1 D Lymphocytes % (Manual) Monocytes % 10.7 H Monocytes % (Manual) Eosinophils % 0.1 D Eosinophils % (Manual) Basophils % 0.2 Basophils % (Manual) Nucleated RBC % 0 Platelet Estimate PT with INR 13.20 H INR 1.12 H PTT (Actin FS) Sodium 137 Potassium 3.7 Chloride 102 Carbon Dioxide 25 Anion Gap 11 BUN 11.7 Creatinine 0.8 Est GFR (CKD-EPI)AfAm 110.96 Est GFR (CKD-EPI)NonAf 95.74 Random Glucose 96 Lactic Acid Calcium 8.9 Phosphorus 2.6 Magnesium 2.0 Total Bilirubin 1.1 H AST 112 H ALT 54 Alkaline Phosphatase 57 Troponin I 0.06 H Total Protein 6.6 Albumin 3.8 Lipase Urine Color Urine Appearance Urine pH Ur Specific [place] Urine Protein Urine Glucose (UA) Urine Ketones Urine Blood Urine Nitrite Urine Bilirubin Urine Urobilinogen Ur Leukocyte Esterase Urine WBC (Auto) Urine RBC (Auto) Urine Casts (Auto) U Epithel Cells (Auto) Urine Bacteria (Auto) HIV Ag/Ab Combo Qual Blood Type Antibody Screen Active Medications Generic Name Dose Route Start Last Admin Trade Name Freq PRN Reason Stop Dose Admin Acetaminophen 1,000 mg 08/27/19 14:15 Ofirmev Injection - IVPB 08/28/19 08:16 Q6H BLUE Fentanyl 50 mcg 08/27/19 14:18 Sublimaze Injection - IVPUSH [id number] PRN PAIN-PACU ORDER X 4 DOSES ONLY Heparin Sodium (Porcine) 5,000 unit 08/28/19 10:00 Heparin - SQ BID BLUE Hydromorphone HCl 0.5 mg 08/27/19 14:20 Dilaudid Vial - IVPUSH 08/28/19 14:19 Q4H PRN PAIN LEVEL 6-10 Lactated Ringer's 1,000 ml in 1,000 mls @ 125 mls/hr 08/27/19 14:15 Lactated Ringers Solution IV ASDIR BLUE Morphine Sulfate 4 mg 08/27/19 14:25 Morphine Injection - IVPUSH Q4H PRN PAIN LEVEL 1-5 Ondansetron HCl 4 mg 08/27/19 14:05 Zofran Injection IVPUSH Q6H PRN NAUSEA AND/OR VOMITING ASSESSMENT/PLAN: 64M PMH Crohn's Disease, chronic hematuria, presented with abdominal pain for the past 3 days, found to have intussusception on CT AP. #Intussusception - Unclear etiology, Crohn's is controlled so red be 2/2 CA, or some other obstructive cause - CT AP: Proximal SB intussusception, intermittent, w/obstruction, telescoping bowel lumen - WBC 20 -> 17 - AST/ALT 112/54 with Lipase 417 - Trop 0.06 -> 0.07 -> 0.06 - Blood/Urine cx pending - Laparotomy with possible bowel resection today as per surgery - Started on Levo 750, Flagyl 500 08/26, received Ancef prior to surgery #Chronic Hematuria - Cystoscopy 5 years ago, normal at the time - UA 2+ blood - Renal US, PSA ordered - Nephro consult pending - Urology outpatient F/U #FEN - NS + 40K - NPO before surgery #Prophylaxis - Heparin 5k #Dispo - Monitor for post-op complications, F/U Renal US and PSA Visit type - Emergency Visit Emergency Visit: No - New Patient This patient is new to me today: No - Critical Care Critical Care patient: No ATTENDING PHYSICIAN STATEMENT I saw and evaluated the patient. I reviewed the resident's note and discussed the case with the resident. I agree with the resident's findings and plan as documented. SUBJECTIVE: OBJECTIVE: ASSESSMENT AND PLAN:
[2019-08-27] MEDS ORDERED: ACETAMINOPHEN INJECTION 100 ML IVPB ONE (14:52)
[2019-08-27] MEDS: ACETAMINOPHEN 1000 MG/100 ML VIAL (NON FORMULARY) IVPB SCH ×2 (14:55→21:40)
[2019-08-27] MEDS ORDERED: ONDANSETRON 4 MG/2 ML VIAL ONE (15:36)
[2019-08-27] MEDS: LACTATED RINGERS SOLUTION 1,000 ML/1,000 ML INFUS.BAG IV SCH ×2 (16:22→19:50)
[2019-08-27] MEDS: morphine SULFATE 4 MG/ML VIAL IVPUSH PRN (19:59)
[2019-08-28] MEDS: morphine SULFATE 4 MG/ML VIAL IVPUSH PRN ×2 (00:54→09:16)
[2019-08-28] MEDS: ACETAMINOPHEN 1000 MG/100 ML VIAL (NON FORMULARY) IVPB SCH ×2 (02:30→09:00)
--- NOTE | 2019-08-28 08:34 | PN ---
Teaching Attending Note Name of Resident: Getachew Mcnulty ATTENDING PHYSICIAN STATEMENT I saw and evaluated the patient. I reviewed the resident's note and discussed the case with the resident. I agree with the resident's findings and plan as documented. SUBJECTIVE: Seen and examined at bedside. Patient has interval improvement in pain despite surgery yesterday. Of note, no intussusception or infected or inflamed areas were noted by the surgical team in the bowel. White count is downtrending today OBJECTIVE: Last Vital Signs Temp Pulse Resp BP Pulse Ox 98.9 F 76 20 122/72 100 08/28/19 05:59 08/28/19 05:59 08/28/19 05:59 08/28/19 05:59 08/27/19 20:09 PE: per resident note Labs/Imaging: reviewed ASSESSMENT AND PLAN: 8-year-old male with a past medical history of Crohn's disease presents with intermittent abdominal pain found to have small bowel intussusception on imaging. An exploratory laparotomy was performed and no intussusception or abdominal bowel was noted #Abdominal pain Exploratory laparotomy negative for intussusception or infected or inflamed bowel Symptomatic care for now Observe off abx for now #Hematuria This is longstanding and primary care physician is aware. Patient has had a cystoscopy several years ago Check renal ultrasounds, PSA Further work-up as outpatient #Leukocytosis: improving Unclear cause given absence of obvious infection or inflammatory cause -holding abx for now
--- NOTE | 2019-08-28 08:58 | PN ---
Progress Note (short form) - Note Progress Note: Surgery: Pt without nausea/emesis. No flatus or BM. Hayes catheter removed this am. Vital Signs Period Temp Pulse Resp BP Sys/Hurt Pulse Ox Last 24 Hr 97.5 F-99 F 55-89 14-20 113-151/61-97 98-100 GEN: A&0x3, NAD ABD: dressing c/d/i. soft, non-distended, inc tendneress. LE: no calf tenderness or swelling noted b/l. SCDS in place CBC, BMP 08/28/19 07:12 08/28/19 07:12 A/P: 64 yo male s/p exp lap, POD#1 May begin clears this am Hayes removed for TOV OOB and ambulate DVT ppx with heparin SQ Incentive spirometer D/w Dr. Herrera
[2019-08-28 09:07] LABS: CALCIUM 8.5 mg/dL (8.5-10.1); POTASSIUM 3.5 mmol/L (3.5-5.1)
[2019-08-28 09:14] LABS: ALBUMIN 3.2 g/dl (3.4-5.0); BILIRUBIN,DIRECT 0.3 mg/dL (0.0-0.2); BILIRUBIN,TOTAL 1.2 mg/dL (0.2-1); BLOOD UREA NITROGEN 14.5 mg/dL (7-18); CREATININE 0.7 mg/dL (0.55-1.3); MAGNESIUM 2.1 mg/dL (1.8-2.4); PHOSPHOROUS 2.8 mg/dL (2.5-4.9); TOT PROT 5.7 g/dl (6.4-8.2)
[2019-08-28] MEDS: HEPARIN NA (PORCINE) 5,000 UNITS/ML 1ML VIAL SQ SCH ×2 (09:17→21:29)
[2019-08-28 09:46] LABS: BASO % 0.1 % (0-2.0); HEMATOCRIT 42.1 % (35.4-49); HEMOGLOBIN 14.1 GM/dL (11.7-16.9); LYMPH % 15.5 % (8-40); MCH 31.2 pg (25.7-33.7); MCHC 33.4 g/dl (32.0-35.9); MEAN CELL VOLUME 93.4 fl (80-96); MEAN PLT VOLUME 8.2 fl (7.5-11.1); MONO % 12.6 % (3.8-10.2); NEUT % 71.8 % (42.8-82.8); PLATELET COUNT 287 K/MM3 (134-434); RBC 4.51 M/mm3 (4.00-5.60); RDW 12.9 % (11.9-15.9); WHITE BLOOD COUNT 15.1 K/mm3 (4.0-10.0)
--- NOTE | 2019-08-28 11:24 | OP ---
Operative Note - Note: Operative Date: 08/27/19 Pre-Operative Diagnosis: smal bowel intussusception Operation: laparotomy and repair of umbilical hernia Findings: no evidence of intussusception/overt Crohns disease/umbilical hernia 1.5 cm. def ect. Post-Operative Diagnosis: Other (umbilical herna) Surgeon: Mert Herrera Promotions Assistant Sales Marketing: Floresita Jeronimo Anesthesiologist/CHIEF OPERATOR LOCK TENDER: Jay Jay Quinn Anesthesia: General Specimens Removed: preperitoneal fatr and hernia sac Estimated Blood Loss (mls): 10
--- NOTE | 2019-08-28 12:51 | CON.GU ---
Consult Consult Specialty:: urology Reason for Consultation:: microscopic hemauria - History of Present Illness Chief Complaint: microscopic hematuria History of Present Illness: Pt is a 64 year old gentleman with pmhx of crohns disease who presents to the ER with abdominal pain. He was found to have intussusception and was admitted for further surgical management. Patient is s/p laparotomy for intusseseption and umbilical hernia repair. Patient noted to have microscopic hematuria. Patient denies significant prostatism, gross hematuria, family history of urologic cancer, or previous urologic surgery. - History Source Limitations to Obtaining History: No Limitations - Past Medical History Gastrointestinal: Yes: Inflamatory Bowel Disease - Smoking History Smoking history: Current some day smoker Have you smoked in the past 12 months: No Aproximately how many cigarettes per day: 0 Home Medications - Allergies Allergies/Adverse Reactions: Allergies Allergy/AdvReac Type Severity Reaction Status Date / Time Penicillins Allergy Mild Verified 09/10/12 18:43 - Home Medications Home Medications: Ambulatory Orders Doxycycline Hyclate [Vibramycin -] 100 mg PO BID #14 capsule 09/10/12 Mesalamine [Asacol] mg PO 09/10/12 Physical Exam- Vital Signs: Vital Signs Temperature 97.7 F 08/28/19 09:00 Pulse Rate 82 08/28/19 09:00 Respiratory Rate 20 08/28/19 09:00 Blood Pressure 139/80 08/28/19 09:00 O2 Sat by Pulse Oximetry (%) 100 08/27/19 20:09 Constitutional: Yes: No Distress, Calm Eyes: Yes: WNL, Conjunctiva Clear, EOM Intact HENT: Yes: WNL, Atraumatic, Normocephalic Neck: Yes: WNL, Supple, Trachea Midline Cardiovascular: Yes: Regular Rate and Rhythm Respiratory: Yes: WNL Gastrointestinal: Yes: Soft Renal/: Yes: WNL Kidneys: Yes: WNL Pelvis: Yes: WNL, Bladder Non Palpable Testicles: Yes: WNL Scrotum: Yes: WNL Penis: Yes: WNL Prostate Exam: Yes: Deferred Musculoskeletal: Yes: WNL Extremities: Yes: WNL Labs: CBC, BMP 08/28/19 07:12 08/28/19 07:12 Imaging - Results Cat Scan: Report Reviewed Ultrasound: Report Reviewed Assessment/Plan impression microscopic hematuria s/p laparotomy for intussuseption plan patient will require outpatient evaluation for hematuria. Patient has a private urologist whom he will follow-up as outpatient.
--- NOTE | 2019-08-28 14:28 | PN ---
Physical Exam: SUBJECTIVE: Patient seen and examined at the bedside, has not passed gas, no BMs OBJECTIVE: Vital Signs Period Temp Pulse Resp BP Sys/Hurt Pulse Ox Last 24 Hr 97.5 F-99 F 55-89 18-20 113-139/61-82 98-100 GENERAL: The patient is awake, alert, and fully oriented, in no acute distress. HEAD: Normal with no signs of trauma. EYES: PERRL, extraocular movements intact, sclera anicteric, conjunctiva clear. No ptosis. ENT: Ears normal, nares patent, oropharynx clear without exudates, moist mucous membranes. NECK: Trachea midline, full range of motion, supple. LUNGS: Breath sounds equal, clear to auscultation bilaterally, no wheezes, no crackles, no accessory muscle use. HEART: Regular rate and rhythm, S1, S2 without murmur, rub or gallop. ABDOMEN: Soft, non-distended, dressing intact with no discharge, moderate tenderness to palpation diffusely EXTREMITIES: 2+ pulses, warm, well-perfused, no edema. NEUROLOGICAL: Cranial nerves II through XII grossly intact. Normal speech, gait not observed. PSYCH: Normal mood, normal affect. SKIN: Warm, dry, normal turgor, no rashes or lesions noted Laboratory Results - last 24 hr 08/28/19 08/28/19 07:12 07:12 WBC 15.1 H RBC 4.51 Hgb 14.1 Hct 42.1 MCV 93.4 MCH 31.2 MCHC 33.4 RDW 12.9 Plt Count 287 MPV 8.2 Absolute Neuts (auto) 10.8 H Neutrophils % 71.8 Lymphocytes % 15.5 D Monocytes % 12.6 H Eosinophils % 0.0 D Basophils % 0.1 Nucleated RBC % 0 Sodium 138 Potassium 3.5 Chloride 102 Carbon Dioxide 26 Anion Gap 10 BUN 14.5 Creatinine 0.7 Est GFR (CKD-EPI)AfAm 117.22 Est GFR (CKD-EPI)NonAf 101.14 Random Glucose 82 Calcium 8.5 Phosphorus 2.8 Magnesium 2.1 Total Bilirubin 1.2 H Direct Bilirubin 0.3 H AST 68 H ALT 43 Alkaline Phosphatase 49 Total Protein 5.7 L Albumin 3.2 L Active Medications Generic Name Dose Route Start Last Admin Trade Name Freq PRN Reason Stop Dose Admin Heparin Sodium (Porcine) 5,000 unit 08/28/19 10:00 08/28/19 09:17 Heparin - SQ 5,000 unit BID BLUE Administration Lactated Ringer's 1,000 ml in 1,000 mls @ 125 mls/hr 08/27/19 14:15 08/27/19 19:50 Lactated Ringers Solution IV 125 mls/hr ASDIR BLUE Administration Morphine Sulfate 4 mg 08/27/19 19:48 08/28/19 09:16 Morphine Sulfate IVPUSH 4 mg Q4H PRN Administration PAIN LEVEL 1-5 Ondansetron HCl 4 mg 08/27/19 14:05 08/27/19 15:36 Zofran Injection IVPUSH 4 mg Q6H PRN Administration NAUSEA AND/OR VOMITING ASSESSMENT/PLAN: 64M PMH Crohn's Disease, chronic hematuria, presented with abdominal pain for the past 3 days, found to have intussusception on CT AP. #Abdominal Pain - Laparotomy performed 08/26, no immediate cause of pain found, unclear etiology - CT AP (08/26): Proximal SB intussusception, intermittent, w/obstruction, telescoping bowel lumen - WBC 20 -> 17 -> 15 - Blood/Urine cx pending - Observing off abx, was previously started on Levo 750, Flagyl 500 (08/26), received Ancef prior to surgery - COVID pending (previously tested negative 1 week ago) #Chronic Hematuria - Cystoscopy 5 years ago, normal at the time - UA 2+ blood - Renal US with no abnormalities, PSA pending - Nephro oupatient F/U, IgA in list of differentials - Urology outpatient F/U #FEN - LR @ 125 - Clears started today, tolerating well, no gas or BMs at the moment #Prophylaxis - Heparin 5k #Dispo - Monitor in M/S until pain subsides/WBC level normalizes, investigate cause of pain Visit type - Emergency Visit Emergency Visit: No - New Patient This patient is new to me today: No - Critical Care Critical Care patient: No ATTENDING PHYSICIAN STATEMENT I saw and evaluated the patient. I reviewed the resident's note and discussed the case with the resident. I agree with the resident's findings and plan as documented. SUBJECTIVE: OBJECTIVE: ASSESSMENT AND PLAN:
--- NOTE | 2019-08-28 14:48 | PN ---
Progress Note (short form) - Note Progress Note: pt pod#1 for ex lap under geta. pt seen and examined at bedside. sitting in chair. still c/o abdominal pain but otherwise well. no apparent anesthesia related complications. vss.
--- NOTE | 2019-08-28 16:34 | PN ---
Progress Note, Physician History of Present Illness: Pt seen and examined at bedside. He is awake and alert. He denies dysuria. - Current Medication List Current Medications: Active Medications Heparin Sodium (Porcine) (Heparin -) 5,000 unit SQ BID [facility] Last Admin: 08/28/19 09:17 Dose: 5,000 unit Documented by: Lactated Ringer's (Lactated Ringers Solution) 1,000 ml in 1,000 mls @ 125 mls/hr IV ASDIR [facility] Last Admin: 08/27/19 19:50 Dose: 125 mls/hr Documented by: Morphine Sulfate (Morphine Sulfate) 4 mg IVPUSH Q4H PRN PRN Reason: PAIN LEVEL 1-5 Last Admin: 08/28/19 09:16 Dose: 4 mg Documented by: Ondansetron HCl (Zofran Injection) 4 mg IVPUSH Q6H PRN PRN Reason: NAUSEA AND/OR VOMITING Last Admin: 08/27/19 15:36 Dose: 4 mg Documented by: - Objective Vital Signs: Vital Signs Temperature 98.7 F 08/28/19 15:53 Pulse Rate 78 08/28/19 15:53 Respiratory Rate 18 08/28/19 15:53 Blood Pressure 119/72 08/28/19 15:53 O2 Sat by Pulse Oximetry (%) 100 08/27/19 20:09 Constitutional: Yes: Calm Eyes: Yes: Conjunctiva Clear HENT: Yes: Atraumatic Neck: Yes: Supple Cardiovascular: Yes: S1, S2 Respiratory: Yes: CTA Bilaterally Gastrointestinal: Yes: Other (dressing in place) Genitourinary: Yes: WNL Musculoskeletal: Yes: WNL Edema: No Neurological: Yes: Oriented Psychiatric: Yes: Oriented Labs: CBC, BMP 08/28/19 07:12 08/28/19 07:12 INR, PTT INR 1.12 (0.83-1.09) H 08/27/19 06:20 Problem List - Problems (1) Hematuria Code(s): R31.9 - HEMATURIA, UNSPECIFIED (2) Abdominal pain Code(s): R10.9 - UNSPECIFIED ABDOMINAL PAIN Qualifiers: Abdominal location: left lower quadrant Qualified Code(s): R10.32 - Left lower quadrant pain (3) Intussusception Code(s): K56.1 - INTUSSUSCEPTION Assessment/Plan Current Medications Generic Name Dose Route Start Last Admin Trade Name Freq PRN Reason Stop Dose Admin Heparin Sodium (Porcine) 5,000 unit 08/28/19 10:00 08/28/19 09:17 Heparin - SQ 5,000 unit BID BLUE Administration Lactated Ringer's 1,000 ml in 1,000 mls @ 125 mls/hr 08/27/19 14:15 08/27/19 19:50 Lactated Ringers Solution IV 125 mls/hr ASDIR BLUE Administration Morphine Sulfate 4 mg 08/27/19 19:48 08/28/19 09:16 Morphine Sulfate IVPUSH 4 mg Q4H PRN Administration PAIN LEVEL 1-5 Ondansetron HCl 4 mg 08/27/19 14:05 08/27/19 15:36 Zofran Injection IVPUSH 4 mg Q6H PRN Administration NAUSEA AND/OR VOMITING Impression 1. microscopic hematuria 2. abd pain 3. intussusception 4. crohns disease Plan - urology input appreciated - outpt hematuria workup - no gross hematuria - wound care - surgery follow up
[2019-08-28] MEDS: LACTATED RINGERS SOLUTION 1,000 ML/1,000 ML INFUS.BAG IV SCH (21:30)
[2019-08-29] MEDS: morphine SULFATE 4 MG/ML VIAL IVPUSH PRN (00:10)
[2019-08-29] MEDS: LACTATED RINGERS SOLUTION 1,000 ML/1,000 ML INFUS.BAG IV SCH ×2 (06:15→16:00)
[2019-08-29 08:22] LABS: BASO % 0.2 % (0-2.0); EOS % 0.9 % (0-4.5); HEMATOCRIT 40.9 % (35.4-49); HEMOGLOBIN 13.9 GM/dL (11.7-16.9); MCHC 34.1 g/dl (32.0-35.9); MEAN CELL VOLUME 93.9 fl (80-96); MEAN PLT VOLUME 8.2 fl (7.5-11.1); NEUT % 70.9 % (42.8-82.8); PLATELET COUNT 284 K/MM3 (134-434); RBC 4.35 M/mm3 (4.00-5.60); RDW 13.1 % (11.9-15.9); WHITE BLOOD COUNT 9.9 K/mm3 (4.0-10.0)
[2019-08-29 08:33] LABS: ALBUMIN 3.2 g/dl (3.4-5.0); BILIRUBIN,TOTAL 0.9 mg/dL (0.2-1); BLOOD UREA NITROGEN 11.8 mg/dL (7-18); CALCIUM 8.5 mg/dL (8.5-10.1); CREATININE 0.7 mg/dL (0.55-1.3); MAGNESIUM 2.2 mg/dL (1.8-2.4); PHOSPHOROUS 2.6 mg/dL (2.5-4.9); POTASSIUM 3.4 mmol/L (3.5-5.1); TOT PROT 5.7 g/dl (6.4-8.2)
[2019-08-29] MEDS ORDERED: POTASSIUM CHLORIDE ORAL LIQUID 20 MEQ/15 ML PO ONE (09:11)
[2019-08-29] MEDS ORDERED: KCL 10 MEQ IVPB 10 MEQ/100 ML INFUS.BAG IVPB SCH (09:15)
[2019-08-29] MEDS ORDERED: BENZOCAINE/MENTH/CETYLPYRD CL 1 EACH LOZENGE MM PRN (09:32)
[2019-08-29] MEDS: HEPARIN NA (PORCINE) 5,000 UNITS/ML 1ML VIAL SQ SCH ×2 (09:55→21:23)
[2019-08-29] MEDS ORDERED: BALSALAZIDE DISODIUM PO SCH (10:00)
[2019-08-29] MEDS: ACETAMINOPHEN 500 MG TABLET (FP) PO PRN ×2 (10:11→21:23)
[2019-08-29] MEDS: KCL 10 MEQ IVPB 10 MEQ/100 ML INFUS.BAG IVPB SCH ×2 (10:33→16:00)
[2019-08-29] MEDS ORDERED: POTASSIUM CHLORIDE TABS 20 MEQ TABLET.ER (FP) PO ONE (11:00)
--- NOTE | 2019-08-29 11:17 | PN ---
Progress Note (short form) - Note Progress Note: POD 1, s/p laparotomy and repair of umbilical hernia pt seen and examined. States he is feeling "OKAY". Has swollen lymph nodes which he attributes to the ETT during intubation. Has been oob without issue. Tolerating clear liquids, voiding without issue. No flatus yet. Denies n/v/d, cp/sob. Vital Signs Temp 98.9 F 08/29/19 10:00 Pulse 91 H 08/29/19 10:00 Resp 18 08/29/19 10:00 BP 147/94 08/29/19 10:00 Pulse Ox 99 08/29/19 09:00 Intake & Output 08/28/19 08/28/19 08/29/19 11:59 23:59 11:59 Intake Total 1880 1220 1500 Output Total 1000 Balance 880 1220 1500 Intake: IV 1500 1000 1500 LACTATED RINGERS SOLUTION 1500 1000 1500 1,000 ml In 1,000 ml @ 125 mls/hr IV ASDIR BLUE Rx#:[id number] IVPB 200 100 Oral 180 120 Output: Urine 1000 Hayes 1000 Other: Voiding Method Toilet Urinal Toilet # Unmeasured Voids Hayes 1 2 Bowel Movement No No CBC, BMP 08/29/19 06:20 08/29/19 06:20 Gen: awake, alert, nad Resp: unlabored on RA ABdo: soft, nt/nd, incision with dressing c/d/i, no erythema or drainage. +bowel sounds A/P: 64 y/o M w/ PMHx Crohn's Disease ( diagnosed 20+ years ago) a/w intermittent abdominal pain taken to the OR for concern of small bowel intussusception now, POD 1, s/p laparotomy and repair of umbilical hernia. VSS labs wnl neck swelling (?salivary glands/?lymph nodes) -Continue clears until passing flatus -oob as tolerated -pain control -Will change dressing later today D/w attending Dr Herrera
--- NOTE | 2019-08-29 11:56 | PN ---
Physical Exam: SUBJECTIVE: Patient seen and examined. States he has hoarseness of voice but he had this prior to being here. He is c/o sore throat and swelling in his throat. Denies difficulty breathing, cp. Pt has not passed flatus or had a BM yet, tolerating liquid diet, low grade temp overnight but no other symptoms. OBJECTIVE: Vital Signs Period Temp Pulse Resp BP Sys/Hurt Pulse Ox Last 24 Hr 98.7 F-99.4 F 72-91 18-18 119-147/66-94 99-100 GENERAL: The patient is awake, alert, and fully oriented, in no acute distress. NECK: subamndibular lymphadenopathy b/l , assess for inguinal, supraclavicular regions and their were no lymphadenopathy, On throat exam, nonerythematous, no swollen adenoids i could appreciate. LUNGS: Breath sounds equal, clear to auscultation bilaterally, no wheezes, no crackles, no stridor, no accessory muscle use. HEART: Regular rate and rhythm, S1, S2 without murmur, rub or gallop. ABDOMEN: soft, NTND, incision with dressing c/d/i, no erythema or drainage. hypoactive bowel sounds in all quadrants. EXTREMITIES: 2+ pulses, warm, well-perfused, no edema. Laboratory Results - last 24 hr 08/26/19 08/27/19 08/29/19 22:42 06:20 06:20 WBC RBC Hgb Hct MCV MCH MCHC RDW Plt Count MPV Absolute Neuts (auto) Neutrophils % Lymphocytes % Monocytes % Eosinophils % Basophils % Nucleated RBC % Sodium 138 Potassium 3.4 L Chloride 100 Carbon Dioxide 28 Anion Gap 10 BUN 11.8 Creatinine 0.7 Est GFR (CKD-EPI)AfAm 117.22 Est GFR (CKD-EPI)NonAf 101.14 Random Glucose 79 Calcium 8.5 Phosphorus 2.6 Magnesium 2.2 Total Bilirubin 0.9 AST 54 H ALT 41 Alkaline Phosphatase 49 Total Protein 5.7 L Albumin 3.2 L Carcinoembryonic Ag 1.8 COVID-19 (YAZMIN) Not detected 08/29/19 06:20 WBC 9.9 RBC 4.35 Hgb 13.9 Hct 40.9 MCV 93.9 MCH 32.0 MCHC 34.1 RDW 13.1 Plt Count 284 MPV 8.2 Absolute Neuts (auto) 7.0 Neutrophils % 70.9 Lymphocytes % 16.0 Monocytes % 12.0 H Eosinophils % 0.9 D Basophils % 0.2 Nucleated RBC % 0 Sodium Potassium Chloride Carbon Dioxide Anion Gap BUN Creatinine Est GFR (CKD-EPI)AfAm Est GFR (CKD-EPI)NonAf Random Glucose Calcium Phosphorus Magnesium Total Bilirubin AST ALT Alkaline Phosphatase Total Protein Albumin Carcinoembryonic Ag COVID-19 (YAZMIN) Active Medications Generic Name Dose Route Start Last Admin Trade Name Freq PRN Reason Stop Dose Admin Acetaminophen 1,000 mg 08/29/19 09:31 08/29/19 10:11 Tylenol - PO 1,000 mg Q6H PRN Administration PAIN LEVEL 1-5 Benzocaine/Menthol 1 each 08/29/19 09:32 Cepacol Lozenge - MM PRN PRN SORE THROAT Heparin Sodium (Porcine) 5,000 unit 08/28/19 10:00 08/29/19 09:55 Heparin - SQ 5,000 unit BID BLUE Administration Lactated Ringer's 1,000 ml in 1,000 mls @ 125 mls/hr 08/27/19 14:15 08/29/19 06:15 Lactated Ringers Solution IV 125 mls/hr ASDIR BLUE Administration Morphine Sulfate 4 mg 08/27/19 19:48 08/29/19 00:10 Morphine Sulfate IVPUSH 4 mg Q4H PRN Administration PAIN LEVEL 1-5 Non-Formulary Medication 4 cap 08/29/19 10:00 Balsalazide Disodium PO BID BLUE Ondansetron HCl 4 mg 08/27/19 14:05 08/27/19 15:36 Zofran Injection IVPUSH 4 mg Q6H PRN Administration NAUSEA AND/OR VOMITING ASSESSMENT/PLAN: 64M PMH Crohn's Disease, chronic hematuria, presented with abdominal pain for the past 3 days, found to have intussusception on CT AP. #Intususcception - Laparotomy performed 08/26, no immediate cause of pain found, unclear etiology - CT AP (08/26): Proximal SB intussusception, intermittent, w/obstruction, telescoping bowel lumen, possibly caused by umbilical hernia vs chrons dx. - WBC 20 -> 17 -> 15-> 9.9 - Blood/Urine cx negative to date - Observing off abx, was previously started on Levo 750, Flagyl 500 (08/26), received Ancef prior to surgery - COVID pending (previously tested negative 1 week ago) #Chronic Microscopic Hematuria - Cystoscopy 5 years ago, normal at the time - UA 2+ blood, no signs of UTI or nephrolithiasis on imaging or clinically - Renal US with no abnormalities, PSA pending - Nephro oupatient F/U, IgA in list of differentials - Urology outpatient F/U - rpt ua ordered will follow up in AM #Soft tissue swelling - possible submandibular lymphadenopathy vs tracheal edema from intubation - CT soft tissue neck ordered to assess for abscess potentially although I doubt it clinically - pt will likely f/u with PCP to make sure it resolves if it comes back negative - on physical exam no lymphadenopathy elsewhere and its non-tender, no constitutional symptoms. #FEN - LR dc'd - Clears started today, tolerating well, no gas or BMs at the moment #Prophylaxis - Heparin 5k #Dispo - Monitor in M/S until pt passes flatus and tolerates the advance in diet. Follow up CT soft tissue neck and evaluate the soft tissue swelling. Visit type - Emergency Visit Emergency Visit: Yes ED Registration Date: 08/26/19 Care time: The patient presented to the Emergency Department on the above date and was hospitalized for further evaluation of their emergent condition. - New Patient This patient is new to me today: Yes Date on this admission: 08/29/19 - Critical Care Critical Care patient: No - Discharge Referral Referred to [facility] Med P.C[facility] No ATTENDING PHYSICIAN STATEMENT I saw and evaluated the patient. I reviewed the resident's note and discussed the case with the resident. I agree with the resident's findings and plan as documented. SUBJECTIVE: OBJECTIVE: ASSESSMENT AND PLAN:
--- NOTE | 2019-08-29 13:39 | PN ---
Teaching Attending Note Name of Resident: Joe Krueger ATTENDING PHYSICIAN STATEMENT I saw and evaluated the patient. I reviewed the resident's note and discussed the case with the resident. I agree with the resident's findings and plan as documented. SUBJECTIVE: Feeling well post-op. No flatus/BM. Abdominal pain improved since admission. No fever/chills. OBJECTIVE: Afebrile, Hemodynamically stable. Last Vital Signs Temp Pulse Resp BP Pulse Ox 98.9 F 91 H 18 147/94 99 08/29/19 10:08/29/19 10:08/29/19 10:08/29/19 10:08/29/19 09:00 HEENT - Atraumatic, Normocephalic. Bilateral non-tender submandibular lymphadenopathy. No pharyngeal erythema/exudate. Heart- S1, S2, RRR Lungs - clear to auscultation Abdomen - Midline laparotomy incision with elvia - clean. Bowel Sounds normal. Extremities - no edema, no calf tenderness. Neuro - AAO x 3. Tone/Power normal all extremities. Laboratory Results - last 24 hr 08/26/19 08/27/19 08/29/19 22:42 06: 06:20 WBC RBC Hgb Hct MCV MCH MCHC RDW Plt Count MPV Absolute Neuts (auto) Neutrophils % Lymphocytes % Monocytes % Eosinophils % Basophils % Nucleated RBC % Sodium 138 Potassium 3.4 L Chloride 100 Carbon Dioxide 28 Anion Gap 10 BUN 11.8 Creatinine 0.7 Est GFR (CKD-EPI)AfAm 117.22 Est GFR (CKD-EPI)NonAf 101.14 Random Glucose 79 Calcium 8.5 Phosphorus 2.6 Magnesium 2.2 Total Bilirubin 0.9 AST 54 H ALT 41 Alkaline Phosphatase 49 Total Protein 5.7 L Albumin 3.2 L Carcinoembryonic Ag 1.8 COVID-19 (YAZMIN) Not detected 08/29/19 06:20 WBC 9.9 RBC 4.35 Hgb 13.9 Hct 40.9 MCV 93.9 MCH 32.0 MCHC 34.1 RDW 13.1 Plt Count 284 MPV 8.2 Absolute Neuts (auto) 7.0 Neutrophils % 70.9 Lymphocytes % 16.0 Monocytes % 12.0 H Eosinophils % 0.9 D Basophils % 0.2 Nucleated RBC % 0 Sodium Potassium Chloride Carbon Dioxide Anion Gap BUN Creatinine Est GFR (CKD-EPI)AfAm Est GFR (CKD-EPI)NonAf Random Glucose Calcium Phosphorus Magnesium Total Bilirubin AST ALT Alkaline Phosphatase Total Protein Albumin Carcinoembryonic Ag COVID-19 (YAZMIN) Current Medications Generic Name Dose Route Start Last Admin Trade Name Freq PRN Reason Stop Dose Admin Acetaminophen 1,000 mg 08/29/19 09:31 08/29/19 10:11 Tylenol - PO 1,000 mg Q6H PRN Administration PAIN LEVEL 1-5 Benzocaine/Menthol 1 each 08/29/19 09:32 Cepacol Lozenge - MM PRN PRN SORE THROAT Heparin Sodium (Porcine) 5,000 unit 08/28/19 10:00 08/29/19 09:55 Heparin - SQ 5,000 unit BID BLUE Administration Lactated Ringer's 1,000 ml in 1,000 mls @ 125 mls/hr 08/27/19 14:15 08/29/19 06:15 Lactated Ringers Solution IV 125 mls/hr ASDIR BLUE Administration Morphine Sulfate 4 mg 08/27/19 19:48 08/29/19 00:10 Morphine Sulfate IVPUSH 4 mg Q4H PRN Administration PAIN LEVEL 1-5 Non-Formulary Medication 4 cap 08/29/19 10:00 Balsalazide Disodium PO BID BLUE Ondansetron HCl 4 mg 08/27/19 14:05 08/27/19 15:36 Zofran Injection IVPUSH 4 mg Q6H PRN Administration NAUSEA AND/OR VOMITING Home Medications Medication Instructions Recorded Balsalazide Disodium [Colazal (Nf) 4 cap PO BID 08/28/19 -] ASSESSMENT AND PLAN: 64 year old male with history of Crohn's disease presented with intermittent abdominal pain found to have small bowel intussusception on imaging, POD1 s/p exploratory laparotomy. 1. POD 1 s/p exploratry laparotomy for suspected intussusception. No fever. Leukocytosis resolved. Diet advanced to clears. Surgery following. 2. Hematuria - longstanding Seen by Urology - for further work-up as out-patient. 3. Submandibular Lymphadenopathy, likely reactive ?cause of leukocytosis No pharyngeal erythema/exudate Tmax 99.4 CT Soft tissues ordered 4. Hx Crohn's Disease - appears stable, no evidence of acute exacerbation - continue Balsalazide DVT Px - Heparin SQ
--- NOTE | 2019-08-29 16:15 | SURG ---
Surgery It Technical Architect Note It Technical Architect: Floresita Jeronimo PA-C Date of Service: 08/27/19 Diagnosis: small bowel intussusception Procedure: laparotomy and repair of umbilical hernia I was present for the entirety of the operative procedure. For further detail, please refer to operative report. Visit type - Case Type Case Type: ED Admission - Emergency Emergency Visit: Yes ED Registration Date: 08/26/19 Care time: The patient presented to the Emergency Department on the above date and was hospitalized for further evaluation of their emergent condition. - New patient This patient is new to me today: Yes Date on this admission: 08/29/19 - Critical Care Critical Care patient: No
--- NOTE | 2019-08-29 18:10 | PN ---
Progress Note, Physician History of Present Illness: Pt seen and examined at bedside. He is awake and alert. He is tolerating diet and ambulating. - Current Medication List Current Medications: Active Medications Acetaminophen (Tylenol -) 1,000 mg PO Q6H PRN PRN Reason: PAIN LEVEL 1-5 Last Admin: 08/29/19 10:11 Dose: 1,000 mg Documented by: Benzocaine/Menthol (Cepacol Lozenge -) 1 each MM PRN PRN PRN Reason: SORE THROAT Heparin Sodium (Porcine) (Heparin -) 5,000 unit SQ BID [facility] Last Admin: 08/29/19 09:55 Dose: 5,000 unit Documented by: Lactated Ringer's (Lactated Ringers Solution) 1,000 ml in 1,000 mls @ 125 mls/hr IV ASDIR [facility] Last Admin: 08/29/19 16:00 Dose: Not Given Documented by: Morphine Sulfate (Morphine Sulfate) 4 mg IVPUSH Q4H PRN PRN Reason: PAIN LEVEL 1-5 Last Admin: 08/29/19 00:10 Dose: 4 mg Documented by: Non-Formulary Medication (Balsalazide Disodium) 4 cap PO BID [facility] Ondansetron HCl (Zofran Injection) 4 mg IVPUSH Q6H PRN PRN Reason: NAUSEA AND/OR VOMITING Last Admin: 08/27/19 15:36 Dose: 4 mg Documented by: - Objective Vital Signs: Vital Signs Temperature 98.4 F 08/29/19 14:46 Pulse Rate 81 08/29/19 14:46 Respiratory Rate 18 08/29/19 14:46 Blood Pressure 129/75 08/29/19 14:46 O2 Sat by Pulse Oximetry (%) 99 08/29/19 09:00 Constitutional: Yes: Calm Eyes: Yes: Conjunctiva Clear Cardiovascular: Yes: S1, S2 Respiratory: Yes: CTA Bilaterally Gastrointestinal: Yes: Soft Genitourinary: Yes: WNL Musculoskeletal: Yes: WNL Edema: No Wound/Incision: Yes: Dressing Dry and Intact Neurological: Yes: Oriented Psychiatric: Yes: Oriented Labs: CBC, BMP 08/29/19 06:20 08/29/19 06:20 INR, PTT INR 1.12 (0.83-1.09) H 08/27/19 06:20 Problem List - Problems (1) Hematuria Code(s): R31.9 - HEMATURIA, UNSPECIFIED (2) Abdominal pain Code(s): R10.9 - UNSPECIFIED ABDOMINAL PAIN Qualifiers: Abdominal location: left lower quadrant Qualified Code(s): R10.32 - Left lower quadrant pain (3) Intussusception Code(s): K56.1 - INTUSSUSCEPTION Assessment/Plan Current Medications Generic Name Dose Route Start Last Admin Trade Name Freq PRN Reason Stop Dose Admin Acetaminophen 1,000 mg 08/29/19 09:31 08/29/19 10:11 Tylenol - PO 1,000 mg Q6H PRN Administration PAIN LEVEL 1-5 Benzocaine/Menthol 1 each 08/29/19 09:32 Cepacol Lozenge - MM PRN PRN SORE THROAT Heparin Sodium (Porcine) 5,000 unit 08/28/19 10:00 08/29/19 09:55 Heparin - SQ 5,000 unit BID BLUE Administration Lactated Ringer's 1,000 ml in 1,000 mls @ 125 mls/hr 08/27/19 14:15 08/29/19 16:00 Lactated Ringers Solution IV Not Given ASDIR [facility] Morphine Sulfate 4 mg 08/27/19 19:48 08/29/19 00:10 Morphine Sulfate IVPUSH 4 mg Q4H PRN Administration PAIN LEVEL 1-5 Non-Formulary Medication 4 cap 08/29/19 10:00 Balsalazide Disodium PO BID [facility] Ondansetron HCl 4 mg 08/27/19 14:05 08/27/19 15:36 Zofran Injection IVPUSH 4 mg Q6H PRN Administration NAUSEA AND/OR VOMITING Impression 1. microscopic hematuria 2. abd pain 3. intussusception 4. crohns disease Plan - renal ultrasound reviewed - follow repeat ua - outpt hematuria workup - can d/c fluids if eating - wound care - surgery follow up
[2019-08-29 21:10] LABS: URINE APPEARANCE CLEAR; URINE COLOR YELLOW; URINE GLUCOSE (UA) NEGATIVE (NEGATIVE)
[2019-08-29 21:11] LABS: URINE BILIRUBIN NEGATIVE (NEGATIVE); URINE KETONE TRACE (NEGATIVE); URINE LEUK ESTERASE NEGATIVE (NEGATIVE); URINE NITRITE NEGATIVE (NEGATIVE); URINE PROTEIN NEGATIVE (NEGATIVE)
[2019-08-29 21:13] LABS: EPI CELLS 5.3 /uL (0-25.1); HYALINE CASTS 0.25 /uL (0-3.1); URINE BACTERIA 3.8 /uL (0-1359); URINE RBC 205.6 /uL (0-23.9); URINE WBC 8.2 /uL (0-25.8); YEAST NEGATIVE (NEGATIVE)
[2019-08-30 08:57] LABS: BASO % 0.5 % (0-2.0); EOS % 2.9 % (0-4.5); HEMATOCRIT 42.3 % (35.4-49); HEMOGLOBIN 14.3 GM/dL (11.7-16.9); LYMPH % 15.1 % (8-40); MCH 31.6 pg (25.7-33.7); MCHC 33.7 g/dl (32.0-35.9); MEAN CELL VOLUME 93.7 fl (80-96); MEAN PLT VOLUME 7.3 fl (7.5-11.1); MONO % 10.3 % (3.8-10.2); NEUT % 71.2 % (42.8-82.8); PLATELET COUNT 305 K/MM3 (134-434); RBC 4.52 M/mm3 (4.00-5.60); RDW 13.1 % (11.9-15.9); WHITE BLOOD COUNT 7.8 K/mm3 (4.0-10.0)
[2019-08-30 09:23] VITALS: PULSE 90
[2019-08-30 09:32] LABS: ALBUMIN 3.4 g/dl (3.4-5.0); BILIRUBIN,TOTAL 0.7 mg/dL (0.2-1); CALCIUM 8.7 mg/dL (8.5-10.1); CREATININE 0.9 mg/dL (0.55-1.3); MAGNESIUM 2.3 mg/dL (1.8-2.4); PHOSPHOROUS 2.4 mg/dL (2.5-4.9); POTASSIUM 3.6 mmol/L (3.5-5.1); TOT PROT 6.1 g/dl (6.4-8.2)
[2019-08-30] MEDS: HEPARIN NA (PORCINE) 5,000 UNITS/ML 1ML VIAL SQ SCH (10:05)
--- NOTE | 2019-08-30 13:12 | PN ---
Progress Note (short form) - Note Progress Note: POD 2, s/p laparotomy and repair of umbilical hernia pt seen and examined on Am rounds. Patient states he is feeling well and passing flatus but has not moved his bowels. He is tolerating his diet and ambulating without assistance. He denies any CP, SOB, N/V fever or chills. Vital Signs Temp 98.2 F 08/30/19 09:22 Pulse 90 08/30/19 09:22 Resp 18 08/30/19 09:22 BP 140/81 08/30/19 09:22 Pulse Ox 99 08/29/19 21:00 Intake & Output 08/29/19 08/30/19 08/30/19 23:59 11:59 23:59 Intake Total 900 720 Output Total 200 Balance 900 520 Intake: IV 200 LACTATED RINGERS SOLUTION 200 1,000 ml In 1,000 ml @ 125 mls/hr IV ASDIR BLUE Rx#:[id number] Oral 700 720 Output: Urine 200 Void 200 Other: Voiding Method Toilet Toilet # Unmeasured Voids Void 2 1 Bowel Movement No No CBC, BMP 08/30/19 08:40 08/30/19 08:40 PE: Gen: awake, alert, nad Resp: unlabored on RA ABdo: soft, nt/nd, incision with elvia in situ, c/d/i, no erythema or drainage. +bowel sounds B/L LE compartments soft, supple and non-tender with +2 DP pulses Problem List - Problems (1) S/P hernia repair Assessment/Plan: A/P: 64 y/o M w/ PMHx Crohn's Disease??? ( diagnosed 20+ years ago) a/w intermit tent abdominal pain taken to the OR for concern of small bowel intussusception now, POD 2, s/p laparotomy and repair of umbilical hernia. VSS labs wnl no neck swelling (salivary glands/?lymph nodes) -advance to regular diet -oob as tolerated -pain control -d/c planning for home today if medically stable D/w attending Dr Herrera Code(s): Z98.890 - OTHER SPECIFIED POSTPROCEDURAL STATES; Z87.19 - PERSONAL HISTORY OF OTHER DISEASES OF THE DIGESTIVE SYSTEM (2) Abdominal pain Code(s): R10.9 - UNSPECIFIED ABDOMINAL PAIN Qualifiers: Abdominal location: left lower quadrant Qualified Code(s): R10.32 - Left lower quadrant pain (3) Hematuria Code(s): R31.9 - HEMATURIA, UNSPECIFIED
[2019-08-30 14:33] VITALS: BP 129/76; TEMP 99.1
--- NOTE | 2019-08-30 14:35 | PN ---
Teaching Attending Note Name of Resident: Santiago Sarkar ATTENDING PHYSICIAN STATEMENT I saw and evaluated the patient. I reviewed the resident's note and discussed the case with the resident. I agree with the resident's findings and plan as documented. SUBJECTIVE: Feeling well post-op day 2. Passing flatus. No BM. Abdominal pain improved since admission. No fever/chills. OBJECTIVE: Afebrile, Hemodynamically stable. Last Vital Signs Temp Pulse Resp BP Pulse Ox 98.2 F 90 18 140/81 99 08/30/19 09:22 08/30/19 09:22 08/30/19 09:22 08/30/19 09:22 08/29/19 21:00 HEENT - Atraumatic, Normocephalic. Bilateral non-tender submandibular lymphadenopathy. No pharyngeal erythema/exudate. No airway compromise, no stridor. Heart- S1, S2, RRR Lungs - clear to auscultation Abdomen - Midline laparotomy incision with elvia - clean. Soft. Bowel Sounds normal. Extremities - no edema, no calf tenderness. Neuro - AAO x 3. Tone/Power normal all extremities. Laboratory Results - last 24 hr 08/28/19 08/29/19 08/30/19 07:12 19:15 08:40 WBC RBC Hgb Hct MCV MCH MCHC RDW Plt Count MPV Absolute Neuts (auto) Neutrophils % Lymphocytes % Monocytes % Eosinophils % Basophils % Nucleated RBC % Sodium 136 Potassium 3.6 Chloride 101 Carbon Dioxide 28 Anion Gap 7 L BUN 13.0 Creatinine 0.9 Est GFR (CKD-EPI)AfAm 105.72 Est GFR (CKD-EPI)NonAf 91.22 Random Glucose 159 H Calcium 8.7 Phosphorus 2.4 L Magnesium 2.3 Total Bilirubin 0.7 AST 65 H ALT 53 Alkaline Phosphatase 51 Total Protein 6.1 L Albumin 3.4 Prostate Specific Ag 4.00 Urine Color Yellow Urine Appearance Clear Urine pH 8.0 Ur Specific [place] 1.051 H Urine Protein Negative Urine Glucose (UA) Negative Urine Ketones Trace H Urine Blood 2+ H Urine Nitrite Negative Urine Bilirubin Negative Urine Urobilinogen 1.0 Ur Leukocyte Esterase Negative Urine WBC (Auto) 8.2 Urine RBC (Auto) 205.6 Urine Casts (Auto) 0.25 U Epithel Cells (Auto) 5.3 Urine Bacteria (Auto) 3.8 Urine Yeast (Auto) Negative 08/30/19 08:40 WBC 7.8 RBC 4.52 Hgb 14.3 Hct 42.3 MCV 93.7 MCH 31.6 MCHC 33.7 RDW 13.1 Plt Count 305 MPV 7.3 L D Absolute Neuts (auto) 5.6 Neutrophils % 71.2 Lymphocytes % 15.1 Monocytes % 10.3 H Eosinophils % 2.9 D Basophils % 0.5 Nucleated RBC % 0 Sodium Potassium Chloride Carbon Dioxide Anion Gap BUN Creatinine Est GFR (CKD-EPI)AfAm Est GFR (CKD-EPI)NonAf Random Glucose Calcium Phosphorus Magnesium Total Bilirubin AST ALT Alkaline Phosphatase Total Protein Albumin Prostate Specific Ag Urine Color Urine Appearance Urine pH Ur Specific [place] Urine Protein Urine Glucose (UA) Urine Ketones Urine Blood Urine Nitrite Urine Bilirubin Urine Urobilinogen Ur Leukocyte Esterase Urine WBC (Auto) Urine RBC (Auto) Urine Casts (Auto) U Epithel Cells (Auto) Urine Bacteria (Auto) Urine Yeast (Auto) Current Medications Generic Name Dose Route Start Last Admin Trade Name Freq PRN Reason Stop Dose Admin Acetaminophen 1,000 mg 08/29/19 09:31 08/29/19 21:23 Tylenol - PO 1,000 mg Q6H PRN Administration PAIN LEVEL 1-5 Benzocaine/Menthol 1 each 08/29/19 09:32 Cepacol Lozenge - MM PRN PRN SORE THROAT Heparin Sodium (Porcine) 5,000 unit 08/28/19 10:00 08/30/19 10:05 Heparin - SQ 5,000 unit BID BLUE Administration Lactated Ringer's 1,000 ml in 1,000 mls @ 125 mls/hr 08/27/19 14:15 08/29/19 16:00 Lactated Ringers Solution IV Not Given [facility] Morphine Sulfate 4 mg 08/27/19 19:48 08/29/19 00:10 Morphine Sulfate IVPUSH 4 mg Q4H PRN Administration PAIN LEVEL 1-5 Non-Formulary Medication 4 cap 08/29/19 10:00 Balsalazide Disodium PO BID [facility] Ondansetron HCl 4 mg 08/27/19 14:05 08/27/19 15:36 Zofran Injection IVPUSH 4 mg Q6H PRN Administration NAUSEA AND/OR VOMITING Home Medications Medication Instructions Recorded Balsalazide Disodium [Colazal (Nf) 4 cap PO BID 08/28/19 -] ASSESSMENT AND PLAN: 64 year old male with history of Crohn's disease presented with intermittent abdominal pain found to have small bowel intussusception on imaging, POD 2 s/p exploratory laparotomy. 1. POD 2 s/p exploratory laparotomy for suspected intussusception and umbilical hernia repair. No fever. Leukocytosis resolved. Tolerating clears - evaluated by Surgery, cleared for discharge once tolerating regular diet. Surgery follow up. 2. Hematuria - longstanding Seen by Urology - for further work-up as out-patient. 3. Submandibular Lymphadenopathy, likely reactive No pharyngeal erythema/exudate Afebrile. CT Neck - bilateral enlarged submandibular glands with heterogenous enhancement. No airway compromise, no stridor. ENT eval as out-patient. 4. Hx Crohn's Disease - appears stable, no evidence of acute exacerbation - continue Balsalazide 5. Hypophosphatemia - will replete. DVT Px - Heparin SQ
[2019-08-30] MEDS ORDERED: POTASSIUM PHOSPHATE 15 MM in SODIUM CHLORIDE 250 ML IVPB ONE (15:30)
--- NOTE | 2019-08-30 16:05 | DS ---
Physical Exam: SUBJECTIVE: Patient seen and examined at bedside. No acute events over night. Patient passing flatus and tolerating diet. Patient's surgical incision closed up with elvia, nonerythematous, and with no discharge. Some amount of bruising around the surgical incision. OBJECTIVE: Vital Signs Period Temp Pulse Resp BP Sys/Hurt Pulse Ox Last 24 Hr 98.2 F-99.1 F 74-97 18-18 111-140/76-85 99 PHYSICAL EXAM GENERAL: The patient is awake, alert, and fully oriented, in no acute distress. HEAD: Normal with no signs of trauma. EYES: extraocular movements intact, sclera anicteric, conjunctiva clear. ENT: + Left submandibular large lymph node that is tender to palpation. Ears normal, nares patent, oropharynx clear without exudates, moist mucous membranes. NECK: Trachea midline, full range of motion, supple. LUNGS: Breath sounds equal, clear to auscultation bilaterally, no wheezes, no crackles, no accessory muscle use. HEART: Regular rate and rhythm, S1, S2 without murmur, rub or gallop. ABDOMEN: + Midline surgical incision nonerythemaous with no serosanginous discharge and closed up with elvia. Some amount of bruising around the surgical incision. Soft, nontender, nondistended, normoactive bowel sounds, no guarding, no rebound, no masses. EXTREMITIES: Warm, well-perfused, no edema. NEUROLOGICAL: Normal speech, gait not observed. PSYCH: Normal mood, normal affect. SKIN: Warm, dry, normal turgor LABS Laboratory Results - last 24 hr 08/28/19 08/29/19 08/30/19 07:12 19:15 08:40 WBC RBC Hgb Hct MCV MCH MCHC RDW Plt Count MPV Absolute Neuts (auto) Neutrophils % Lymphocytes % Monocytes % Eosinophils % Basophils % Nucleated RBC % Sodium 136 Potassium 3.6 Chloride 101 Carbon Dioxide 28 Anion Gap 7 L BUN 13.0 Creatinine 0.9 Est GFR (CKD-EPI)AfAm 105.72 Est GFR (CKD-EPI)NonAf 91.22 Random Glucose 159 H Calcium 8.7 Phosphorus 2.4 L Magnesium 2.3 Total Bilirubin 0.7 AST 65 H ALT 53 Alkaline Phosphatase 51 Total Protein 6.1 L Albumin 3.4 Prostate Specific Ag 4.00 Urine Color Yellow Urine Appearance Clear Urine pH 8.0 Ur Specific [place] 1.051 H Urine Protein Negative Urine Glucose (UA) Negative Urine Ketones Trace H Urine Blood 2+ H Urine Nitrite Negative Urine Bilirubin Negative Urine Urobilinogen 1.0 Ur Leukocyte Esterase Negative Urine WBC (Auto) 8.2 Urine RBC (Auto) 205.6 Urine Casts (Auto) 0.25 U Epithel Cells (Auto) 5.3 Urine Bacteria (Auto) 3.8 Urine Yeast (Auto) Negative 08/30/19 08:40 WBC 7.8 RBC 4.52 Hgb 14.3 Hct 42.3 MCV 93.7 MCH 31.6 MCHC 33.7 RDW 13.1 Plt Count 305 MPV 7.3 L D Absolute Neuts (auto) 5.6 Neutrophils % 71.2 Lymphocytes % 15.1 Monocytes % 10.3 H Eosinophils % 2.9 D Basophils % 0.5 Nucleated RBC % 0 Sodium Potassium Chloride Carbon Dioxide Anion Gap BUN Creatinine Est GFR (CKD-EPI)AfAm Est GFR (CKD-EPI)NonAf Random Glucose Calcium Phosphorus Magnesium Total Bilirubin AST ALT Alkaline Phosphatase Total Protein Albumin Prostate Specific Ag Urine Color Urine Appearance Urine pH Ur Specific [place] Urine Protein Urine Glucose (UA) Urine Ketones Urine Blood Urine Nitrite Urine Bilirubin Urine Urobilinogen Ur Leukocyte Esterase Urine WBC (Auto) Urine RBC (Auto) Urine Casts (Auto) U Epithel Cells (Auto) Urine Bacteria (Auto) Urine Yeast (Auto) HOSPITAL COURSE: Date of Admission:08/26/19 64 year old male patient with past medical history of Crohn's Disease on Balsalazide that presented to the emergency room with abdominal pain and found to have a proximal small bowel intussusception on a CT abdomen with contrast. T he patient underwent exploratory laparotomy on 08/26 and an umbilical hernia repair was performed for a 1.5 cm umbilical hernia. The small bowel intussusception was not found during the exploratory laparotomy. During the hospital course, the patient was found to have microscopic hematuria on a urinalysis on 08/25 and a urinalysis on 08/28. Patient was evaluated by Urology and advised to follow his outpatient urologist. Additionally, he also developed a [id number] enlarged left submandibular lymph node. Patient was also seen by Nephrology. Outpatient followup for Nephrology and post-op evaluation by Surgery recommended. Date of Discharge: 08/30/19 Minutes to complete discharge: 38 Discharge Summary Problems reviewed: Yes Reason For Visit: ABDOMINAL PAIN/ INTUSSUSCEPTION OF INTESTINE Current Active Problems Abdominal pain (Acute) Hematuria (Acute) S/P hernia repair (Acute) Condition: Stable - Instructions Diet, Activity, Other Instructions: Dr. Herrera Discharge Instructions Dear JAYLEN SERRANO, Post Operative Instructions Physical activity Resume your normal everyday activity as tolerated no heavy lifting or exercise until seen by your surgeon. You may walk unlimited amounts of and climb stairs. You may resume driving the car when you feel safe and comfortable behind the w heel. Wound care If you have a bandage, leave it on, and keep dry for 48 - 72 hours. After that time discard the outer bandage. If there are tapes on the skin under the outer bandage, leave them in place. They will peel off in the next 7 to 10 days. Do Not peel them off. You may shower 2 days after surgery. If there are tapes present on the skin, they can get wet. Diet There are no dietary restrictions. Eat healthy, high-fiber foods. Drink 6 to 8 glasses of liquid each day. This will assist in keeping your bowels are regular. Pain management You may take Tylenol or acetaminophen or Ibuprofen (for example, Motrin, Advil etc.) Any pain prescription medication ordered should be taken as prescribed for moderate to severe pain. Call Dr. Herrera for any of the following: Severe pain not relieved by medication Fever of 101 or higher Excessive bleeding or drainage on dressing Inability to urinate Call the office at [phone] for a post operative appointment in 7 - 10 days. Other Follow Up Please follow up with your primary care physician within 1 week. Please follow up with ENT for submandibular swelling and CT findings nonspecific heterogenous enhancement around submandibular LN's. You may make an appointment to see Dr. Montez, ENT. Please see your urologist, Dr. Simmons for outpatient evaluation of your hematuria (blood in the urine.) Referrals: Mert Herrera MD [Staff Physician] - 1 Week (post-op follow up.) Christina Coello MD [Primary Care Provider] - 1 Week Alex Montez MD [Staff Physician] - Disposition: HOME - Home Medications Comprehensive Discharge Medication List: Ambulatory Orders Balsalazide Disodium [Colazal (Nf) -] 4 cap PO BID 08/28/19 This patient is new to me today: Yes Date on this admission: 08/30/19 Emergency Visit: Yes ED Registration Date: 08/26/19 Care time: The patient presented to the Emergency Department on the above date and was hospitalized for further evaluation of their emergent condition. Critical Care patient: No - Discharge Referral Referred to [facility] No ATTENDING PHYSICIAN STATEMENT I saw and evaluated the patient. I reviewed the resident's note and discussed the case with the resident. I agree with the resident's findings and plan as documented. SUBJECTIVE: OBJECTIVE: ASSESSMENT AND PLAN:
--- NOTE | 2019-08-30 17:32 | PATH ---
Surgical Pathology Report Patient Name: JAYLEN SERRANO Med. Rec. #: [id number] /Age/Gender: 1955 (Age: 64) / M Account: [id number] Location: [address] [place] [address]/[facility] Taken: 08/27/2019 Received: 08/28/2019 Reported: 08/30/2019 Physicians: Mert Herrera MD Specimen(s) Received UMBILICAL HERNIA SAC Clinical History Intussusception of small bowel Final Diagnosis UMBILICAL HERNIA SAC, EXCISION: FIBROADIPOSE TISSUE, CONSISTENT WITH HERNIA SAC. Electronically Signed Chyna Thurman M.D. Gross Description Received in formalin labeled "umbilical hernia sac," is a 4.8 x 4.3 x 0.9 cm aggregate of multiple rubio-yellow and weber, irregular portions fibrous tissue and fat, likely consistent with a hernia sac. Flour Broker sections are submitted in one cassette. /08/28/201908/28/2019
--- NOTE | 2019-08-31 15:42 | PDOC ---
Documentation entered by Beatrice Colorado SCRIBE, acting as scribe for Bandar Banks MD. Bandar Banks MD: This documentation has been prepared by the yenibeStanislav Maria, SCRIBE, under my direction and personally reviewed by me in its entirety. I confirm that the documentation accurately reflects all work, treatment, procedures, and medical decision making performed by me. Attending Attestation - Resident Resident Name: Omar Martinez - ED Attending Attestation I have performed the following: I have examined & evaluated the patient, The case was reviewed & discussed with the resident, I agree w/resident's findings & plan, Exceptions are as noted - HPI HPI: 08/26/19 16:05 The patient is a 64 year old male with a significant past medical history of Crohns disease who presents to the emergency department with 3 days of LLQ pain. As per patient, he states he ate eggplant parmesan on at a restaurant and began to develop LLQ abdominal pain. Patient reports endorsing associated nausea but no emesis and constipation, states he took tums and omeprazole this morning with minimal relief of symptoms. He denies an yfever/chills, vomiting, diarhea. notes the last BM he had was 3 days ago. Denie any cp, sob, fever/chills, back pain, focal numbness/tingling/wekaness. Primary Care Physician: Christina Coello GI: Dr. Chun - Physicial Exam PE: 08/26/19 16:28 GENERAL: The patient is awake, alert, and fully oriented, Nontoxic - in no acute distress. HEAD: Normocephalic, atraumatic. EYES: extraocular movements intact, sclera anicteric, conjunctiva clear. ENT: Normal voice, Moist mucous membranes. NECK: Normal range of motion, supple LUNGS: Breath sounds equal, clear to auscultation bilaterally. No wheezes, no rhonchi, no rales. HEART: Regular rate and rhythm, normal S1 and S2 without murmur, rub or gallop. ABDOMEN: Soft, mild LLQ tenderness, No guarding, no rebound. No CVA tenderness EXTREMITIES: Normal range of motion, no edema. NEUROLOGICAL: No facial assymetry, Normal speech, PSYCH: Normal mood, normal affect. SKIN: Warm, Dry, normal turgor, - Medical Decision Making 08/26/19 16:28 64-year-old gentleman history of Crohn's presenting with 3 days of intermittent aching left lower quadrant pain associated with nausea without fevers chills, diarrhea, melena, BPR. On exam patient does have left lower quadrant tenderness will obtain blood work, will obtain CT to rule out diverticulitis and other complications of Crohn's including abscess, fistula. Discharge - Discharge Information Problems reviewed: Yes Clinical Impression/Diagnosis: Intussusception Abdominal pain Qualifiers: Abdominal location: left lower quadrant Qualified Code(s): R10.32 - Left lower quadrant pain - Follow up/Referral - Patient Discharge Instructions - Post Discharge Activity
--- NOTE | 2019-08-31 16:59 | OP ---
DATE OF OPERATION: 08/28/2019 PREOPERATIVE DIAGNOSIS: Small bowel intussusception. POSTOPERATIVE DIAGNOSIS: No evidence of small bowel intussusception and presence of umbilical hernia. PROCEDURE: Laparotomy and repair of umbilical hernia. SURGEON: Mert Herrera MD. BANKING AND FINANCE INSTRUCTOR: ALEX Wong. ANESTHESIA: General. OPERATIVE FINDINGS: There was no evidence of small bowel intussusception or overt Crohn disease. There was an umbilical hernia with a defect of approximately 1.5 cm containing preperitoneal fat, and the rest of the findings are unremarkable. PROCEDURE: The patient was placed on the operating room table in the supine position. After induction of general anesthesia, the patient's abdomen was prepped with ChloraPrep and draped in sterile fashion. A timeout was taken. A midline incision made in the skin and the peritoneal cavity entered under direct vision. The small bowel was run from the ligament of Treitz to the terminal ileum and the previously noted findings were observed. There were no other abnormal intraabdominal findings. There was an umbilical hernia from which incarcerated preperitoneal fat was excised along with the sac and sent for pathological examination. Hemostasis was verified, and then the peritoneal cavity was closed using continuous 0 loop [place]. Subcutaneous tissue was irrigated. Hemostasis verified, and then the skin edges reapproximated using surgical elvia. Dry sterile dressings and Medipore tape were placed, and the procedure terminated at this point. The patient aroused from general anesthesia and transferred to post anesthesia care unit in stable condition awake and alert. Estimated blood loss 10 mL. Replacements crystalloids. Drains none. Specimen: Preperitoneal fat and hernia sac to pathology. I, Mert Herrera, was physically present in the operating room from the time the patient was placed on the operating room table until he was transferred to the postanesthesia care unit in my accompaniment. MD ISAAC Milian/[id number] MTDD
== END 2019-08-30 17:17 | disposition home or self-care (01) | DRG 227 ==
LOC: JER 14:56 → JERBED 21:28 → J6S 23:25
PROVIDERS: ADMIT Internal Medicine
PROC: 0WQF0ZZ Repair Abdominal Wall, Open Approach (ICD-10-PCS; principal; 2019-08-28)
DX: K42.9 Umbilical hernia without obstruction or gangrene (principal); K50.90 Crohn's disease, unspecified, without complications; R31.29 Other microscopic hematuria; R59.0 Localized enlarged lymph nodes; D72.829 Elevated white blood cell count, unspecified; E87.6 Hypokalemia; E83.39 Other disorders of phosphorus metabolism; Z88.0 Allergy status to penicillin
CPT/HCPCS: 36415; 70491-TC; 71045-TC-FY; 74177-TC; 76775-TC; 80053; 80076; 81003; 82378; 83605; 83690; 83735; 84100; 84153; 84484; 85025; 85610; 85730; 86850; 86900; 86901; 87040; 87086; 87389; 88302-TC; 94010; 94760; 99285-25; J0131; J1644; Q9967; U0003

== ENCOUNTER 2019-10-02 08:57 | Inpatient (IN) | payer OTHER ==
--- NOTE | 2019-10-02 09:22 | PDOC ---
History of Present Illness - General Chief Complaint: Pain Stated Complaint: ABD PAIN / VOMIT Time Seen by Provider: 10/02/19 09:22 History Source: Patient, Family, Old Records Exam Limitations: No Limitations - History of Present Illness Initial Comments: 10/02/19 09:22 Grady Thompson is a 64M with PMH Crohn's disease on mesalamine as well as recent admission and exploratory laparotomy for hernia repair and evaluation intussusception. Of note, patient's parents are aggressively involved in patient's care, and will often question patient's ability to make medical decisions for himself despite patient having capacity to do so for himself. 2 weeks ago presented with acute onset abdominal pain, CTAP showed intussusception. Brought to OR by Dr. Herrera who did not find intussusception, performed hernia repair, discharged home. Patient was doing well post-op until yesterday. 8PM last night had acute onset abdominal pain LLQ/LUQ with N/V, did not tolerate PO, did not take any medications, presented to ED today for further evaluation. Last BM 3 days ago. Denies any history of Crohn's flares. Denies fever, chest pain, cough, urinary sx, HANSEN. On presentation described nausea, abdominal pain in the left lower quadrant. Allergy to PCN, reaction unknown. Denies alcohol/drugs/smoking. Past History - Medical History Allergies/Adverse Reactions: Allergies Allergy/AdvReac Type Severity Reaction Status Date / Time Penicillins Allergy Mild Verified 09/06/19 11:05 Home Medications: Ambulatory Orders Balsalazide Disodium [Colazal (Nf) -] 4 cap PO BID 08/28/19 COPD: No GI Disorders: Yes (crohn's) - Surgical History Abdominal Surgery: Yes - Immunization History Immunization Up to Date: No - Psycho-Social/Smoking History Smoking Status: No Smoking History: Former smoker Have you smoked in the past 12 months: No Number of Cigarettes Smoked Daily: 0 Information on smoking cessation initiated: No - Substance Abuse Hx (Audit-C & DAST Scrn) How often the patient has a drink containing alcohol: Monthly or less How often the patient has six or more drinks on one occasion: Never Score: In Men: 4 or > Positive; In Women: 3 or > Positive: 1 Screen Result (Pos requires Nsg. Audit-10AR): Negative In the last yr the pt used illegal drug/Rx for NonMed reason: No Score: Yes response is considered Positive: 0 Screen Result (Positive result requires Nsg. DAST-10): Negative Review of Systems - Review of Systems Able to Perform ROS?: Yes Constitutional: No: Symptoms Reported HEENTM: No: Symptoms Reported Respiratory: No: Symptoms reported Cardiac (ROS): No: Symptoms Reported ABD/GI: Yes: Nausea, Poor Appetite, Poor Fluid Intake, Vomiting, Abdominal cramping : No: Symptoms Reported Musculoskeletal: No: Symptoms Reported Integumentary: No: Symptoms Reported Neurological: No: Symptoms reported Endocrine: No: Symptoms Reported Hematologic/Lymphatic: No: Symptoms Reported All Other Systems: Reviewed and Negative *Physical Exam - Vital Signs Last Vital Signs Temp Pulse Resp BP Pulse Ox 98.5 F 90 19 144/75 100 10/02/19 08:58 10/02/19 08:58 10/02/19 08:58 10/02/19 08:59 10/02/19 08:58 - Physical Exam General Appearance: Yes: Nourished, Appropriately Dressed, Mild Distress, Other (resting in bed, appears uncomfortable) HEENT: positive: EOMI, EFREN, Normal ENT Inspection, Normal Voice, Symmetrical, Pharynx Normal, Hearing Grossly Normal. negative: Scleral Icterus (R), Scleral Icterus (L), Pharyngeal Erythema, Tonsillar Exudate, Tonsillar Erythema Neck: positive: Normal Thyroid, Supple. negative: Tender, Lymphadenopathy (R), Lymphadenopathy (L) Respiratory/Chest: positive: Lungs Clear, Normal Breath Sounds. negative: Chest Tender, Respiratory Distress, Accessory Muscle Use, Crackles, Rales, Rhonchi, Stridor, Wheezing Cardiovascular: positive: Regular Rhythm, Regular Rate. negative: Murmur Gastrointestinal/Abdominal: positive: Normal Bowel Sounds, Tender (LLQ, negative Subramanian sign), Soft, Other (healing midline laparotomy incisions without exudate, pus, or erythema). negative: Pulsatile Mass, Distended, Guarding, Rebound, Tenderness, Hernia Musculoskeletal: positive: Normal Inspection. negative: CVA Tenderness, CVA Tenderness (R), CVA Tenderness (L), Vertebral Tenderness Extremity: positive: Normal Capillary Refill, Normal Inspection, Normal Range of Motion, Pelvis Stable. negative: Tender, Swelling, Calf Tenderness, Erythema Integumentary: positive: Normal Color, Dry, Warm Neurologic: positive: Fully Oriented, Alert, Normal Mood/Affect, Normal Response ED Treatment Course - LABORATORY CBC & Chemistry Diagram: 10/02/19 10:20 10/02/19 10:20 Medical Decision Making - Medical Decision Making 10/02/19 12:58 Patient has history of Crohn's and recent abdominal surgery, last BM 3 days ago, now here for acute onset abd pain concerning for SBO, hernia, diverticulitis, Crohn's flare. Giving Ofrimev and 1L NS for pain control. Zofran for nausea. Ordered CBC/CMP/CP/lipase/ECG/CXR/lactic acid/UA/UC/Mag/Phos. Getting CTAP with PO/IV contrast for characterization of abdominal pathology. Patient drinking contrast without issue. Feeling better after meds. Pending CTAP results, may require surgery consult and admission depending on the results. Labs notable for: - WBC 18 - CMP WNL - lactic 2.8 > down to 1.1 after 1L NS - UA 3+ blood, 3+ ketones, unclear etiology, pending CT. Pending CT read. 10/02/19 14:18 CTAP read shows colitis and possible appendicitis, no evidence of cause of renal bleeding. Unlikely to be appendicitis, but given that patient has WBC 18.3, concern for infectious colitis vs. Crohn's. Giving 1000mg ceftriaxone and 500mg Flagyl for colitis. PCN allergy but has been given Ancef in the past. Placing consult to Dr. Herrera for evaluation. Will admit to Med/Surg for colitis. 10/02/19 15:[address] Martinez discussed case with Dr. Herrera, who will come to evaluate. Discussed case with salena Narayanan for admission to Med/Surg under Dr. Weiss. Discharge - Discharge Information Problems reviewed: Yes Clinical Impression/Diagnosis: Colitis Abdominal pain Qualifiers: Abdominal location: left upper quadrant Qualified Code(s): R10.12 - Left upper quadrant pain Condition: Stable - Admission Yes - Follow up/Referral - Patient Discharge Instructions - Post Discharge Activity
[2019-10-02] MEDS ORDERED: ACETAMINOPHEN 1000 MG/100 ML VIAL (NON FORMULARY) IVPB ONE (10:06)
[2019-10-02] MEDS ORDERED: SODIUM CHLORIDE 1,000 ML IV STA (10:06)
[2019-10-02] MEDS ORDERED: ONDANSETRON 4 MG/2 ML VIAL IVPUSH ONE (10:07)
[2019-10-02] MEDS ORDERED: ACETAMINOPHEN INJECTION 100 ML IVPB ONE (10:10)
[2019-10-02 10:47] LABS: BASO % 0.6 % (0-2.0); HEMATOCRIT 45.8 % (35.4-49); HEMOGLOBIN 15.1 GM/dL (11.7-16.9); LYMPH % 3.9 % (8-40); MCH 30.8 pg (25.7-33.7); MEAN CELL VOLUME 93.4 fl (80-96); MEAN PLT VOLUME 7.7 fl (7.5-11.1); MONO % 4.4 % (3.8-10.2); NEUT % 91.1 % (42.8-82.8); PLATELET COUNT 293 K/MM3 (134-434); RDW 13.3 % (11.9-15.9); WHITE BLOOD COUNT 18.3 K/mm3 (4.0-10.0)
[2019-10-02 10:54] LABS: INR 1.09 (0.83-1.09); PROTHROMBIN TIME (PATIENT) 12.9 SEC (9.7-13.0)
[2019-10-02 10:57] LABS: ACTIVATED PTT 26.8 SECONDS (25.2-36.5)
--- NOTE | 2019-10-02 11:15 | PDOC ---
Documentation entered by Jerri Nails SCRIBE, acting as scribe for Sammie Ugalde MD. Sammie Ugalde MD: This documentation has been prepared by the Jaqui xavier Sydney, SCRIBE, under my direction and personally reviewed by me in its entirety. I confirm that the documentation accurately reflects all work, treatment, procedures, and medical decision making performed by me. Attending Attestation - Resident Resident Name: MackenzieWilton - ED Attending Attestation I have performed the following: I have examined & evaluated the patient, The case was reviewed & discussed with the resident, I agree w/resident's findings & plan, Exceptions are as noted - HPI HPI: 10/02/19 11:09 Agree with resident HPI - Physicial Exam PE: 10/02/19 11:09 GENERAL: Awake, alert, and fully oriented, in no acute distress but appears uncomfortable EYES: PERRLA, EOMI, sclera anicteric, conjunctiva clear ENT: Oropharynx clear without exudates. Dry MM NECK: Normal ROM, supple, no lymphadenopathy, JVD, or masses LUNGS: Breath sounds equal, clear to auscultation bilaterally. No wheezes, and no crackles HEART: Regular rate and rhythm, normal S1 and S2, no murmurs, rubs or gallops ABDOMEN: Soft, +mild LLQ ttp, normoactive bowel sounds. No guarding, no rebound. No masses EXTREMITIES: Normal range of motion, no edema. No cords, erythema, or tenderness NEUROLOGICAL: Normal speech, cranial nerves intact, equal strength and sensation b/l - Medical Decision Making 10/02/19 11:10 64yo M hx crohns disease, recent hernia repair 08/26 and laparotomy to r/o intussusception presents to the ED with LLQ pain and NBNB emesis. Vitals wnl Exam with LLQ ttp DDx includes SBO vs diverticulitis vs crohns flare vs enteritis vs gastritis Plan: -labs -ua -CTAP -antiemetics -fluids -c/s surgery given recent procedure -reassess Heart Score/ECG Review #1 10/02/19 11:14 Twelve-lead EKG was performed and reviewed by me. Normal sinus rhythm, rate 77. Normal axis and intervals. No ST elevations or T wave inversions. Discharge - Follow up/Referral Referrals: Christina Coello MD [Primary Care Provider] - - Patient Discharge Instructions - Post Discharge Activity
[2019-10-02 11:19] LABS: POTASSIUM 4.5 mmol/L (3.5-5.1)
[2019-10-02 11:21] LABS: ANISOCYTOSIS 0; MACROCYTOSIS 0; PLATELET ESTIMATE NORMAL
[2019-10-02 11:27] LABS: ALBUMIN 4.5 g/dl (3.4-5.0); BLOOD UREA NITROGEN 19.5 mg/dL (7-18); PHOSPHOROUS 1.8 mg/dL (2.5-4.9); TOT PROT 7.5 g/dl (6.4-8.2)
[2019-10-02] MEDS ORDERED: SODIUM CHLORIDE 0.9% 500 ML INFUS.BAG IV ONE (12:17)
[2019-10-02 13:10] LABS: EPI CELLS 12 /uL (0-25.1); HYALINE CASTS 3 /uL (0-3.1); PH,URINE 8.5 (5.0-8.0); URINE APPEARANCE CLEAR; URINE BACTERIA 5 /uL (0-1359); URINE BILIRUBIN NEGATIVE (NEGATIVE); URINE COLOR YELLOW; URINE GLUCOSE (UA) NEGATIVE (NEGATIVE); URINE KETONE 3+ (NEGATIVE); URINE LEUK ESTERASE TRACE (NEGATIVE); URINE NITRITE NEGATIVE (NEGATIVE); URINE PROTEIN TRACE (NEGATIVE); URINE RBC 564 /uL (0-23.9); URINE UROBILINOGEN 0.2 mg/dL (0.2-1.0); URINE WBC 11 /uL (0-25.8)
[2019-10-02] MEDS ORDERED: CEFTRIAXONE 1 GM in DEXTROSE 5%-WATER - 50 ML IVPB ONE (14:22)
[2019-10-02] MEDS ORDERED: CEFTRIAXONE 1 GM/50 ML BAG ONE (14:44)
--- NOTE | 2019-10-02 16:01 | PN ---
Teaching Attending Note Name of Resident: Ana Bang ATTENDING PHYSICIAN STATEMENT I saw and evaluated the patient. I reviewed the resident's note and discussed the case with the resident. I agree with the resident's findings and plan as documented. SUBJECTIVE: 64yo M with h/o of Crohn's disease presenting with sudden onset of LLQ abdominal pain, multiple bouts of watery diarrhea, and multiple episodes of NB/NB emesis. Patient was here recently for possible hernia vs. intussusception and went to OR for exploratory laparotomy resulting in hernia which was fixed surgically. Patient was discharged home after uncomplicated hospital course and has not had any other events since. Pt sought medical attention after his diarrhea developed last night and he could not tolerate any PO this AM. Patient reports his last meal was microwave macaroni and cheese 30 minutes before his diarrhea. He has not ate any unusual foods or fish in the last two days. Patient reports stool remains watery without any blood or mucus. Patient has been receiving antibiotics during his previous admission which was about 1.5 months prior. Pt has not had any travel outside of [facility] and has not been to any public pools. Denies sick contacts. Pt denies any fever/chills, SOB, CP, palpitations, current nausea, back pain, dysuria, blood per rectum. Patient has been well-controlled on Balsalazide and has not had any recent Crohn's flares. Of note, patient reports he has had long-standing history of hematuria which was worked up by a Urologist whom he does not remember. Patient reports that he has had multiple cystoscopies without any abnormalities detected. He denies every having the need for blood transfusion. OBJECTIVE: Vital Signs Temperature 98.5 F 10/02/19 08:58 Pulse Rate 85 10/02/19 14:09 Respiratory Rate 18 10/02/19 14:09 Blood Pressure 142/80 10/02/19 14:09 O2 Sat by Pulse Oximetry (%) 100 10/02/19 14:09 GENERAL: Awake, alert, and fully oriented, NAD HEENT: NC/AT, JOSE J, EOMI, sclera anicteric, MMM LUNGS: CTA bilaterally w/o wheezes or rales. HEART: Regular rate and rhythm, normal S1 and S2, no murmur ABDOMEN: Soft, mildline scar healing (C/D/I), +infraumbilical TTP, umbilical hernia noted freely reducible w/o overlying skin changes, nondistended, normoactive bowel sounds EXTREMITIES: 2+ pulses, warm, well-perfused. No peripheral edema. PSYCHIATRIC: Cooperative. Good eye contact. Appropriate mood and affect. SKIN: Warm, dry CBC, BMP 10/02/19 10:20 10/02/19 10:20 ASSESSMENT AND PLAN: Acute enterocolitis History of painless hematuria History of Crohn's disease Lactic acidosis, resolved --Suspect patient has enterotoxin-based acute colitis due to timing between meals and sudden development of watery diarrhea --CT A/P with contrast reviewed --Levaquin and flagyl ordered --Will r/o C. diff considering proximity to antibiotic use --Stool cultures ordered --NPO until pain improves --Zofran PRN --IVF for fluid repletion --Surgery rec's appreciated: Medical management --Hematuria will need continued investigation with urology on an outpatient basis --H/H with hemodynamics stable currently; monitor CBC during hospital course DVT PPX: Lovenox SQ daily Dispo: Med-surg Rest per resident note Chris Weiss, - IM
--- NOTE | 2019-10-02 16:23 | HP ---
CHIEF COMPLAINT:abdominal pain PCP: Dr. Coello GI: Dr. Chun Uro: Dr. Simmons HISTORY OF PRESENT ILLNESS: Patient is a 64 yo male with past medical history of Crohns disease presenting to the ED with LUQ and LLQ pain for 1 day. After eating macaroni and cheese for dinner last night, pt experienced three episodes of watery, nonbloody diarrhea followed by nausea, abdominal pain and 10 episodes of NBNB vomiting. Patient reported the abdominal pain started on the LLQ that radiated to the LUQ/midepigastric area, described as dull, 12/08 with no aggravating or alleviating symptoms. Due to abdominal pain that persisted until the morning, patient decided to go to the ED. Pt denies history of crohns exacerbation, recent use of NSAIDs, bloody diarrhea, head ache, chest pain, palpitations, recent travel, sick contacts or any urinary symptoms. Pt was admitted on 08/25 for acute onset of abdominal pain. CT of abdomen and pelvis at the time showed possible intussusception vs hernia. He was taken to the OR for an exploratory laparotomy which showed an umbilical hernia which was surgically repaired. He was found to have microscopic hematuria as well during this visit which he reports to be chronic. Dr. Simmons was consulted who recommended outpatient follow up. Of note, patient also sees Dr. Chun for GI outpatient, and is scheduled for a colonoscopy on Oct 08. ER course was notable for: (1)CTAP with contrast: Distended, somewhat thickened and largely fluid-filled as cending colon and cecum with mild inflammation and adjacent free fluid suggesting colitis. The appendix is also thickened and may be involved with this process. The possibility of acute appendicitis cannot be excluded. Clinical correlation and follow-up recommended. (2)WBC 18.3 (3)IV Ceftriaxone and Flagly x1 Recent Travel: denies PAST MEDICAL HISTORY: Crohn's disease PAST SURGICAL HISTORY: LUE lipoma removal ex-lap, hernia repair Social History: Smoking: Denies Alcohol: 2.3 beers/ weekend Drugs: Marijuana ("couple joints on the weekend") Pt. lives alone is independent, works as an Artist on [employer]. Allergies Penicillins Allergy (Mild, Verified 09/06/19 11:05) HOME MEDICATIONS: Home Medications Medication Instructions Recorded Balsalazide Disodium [Colazal (Nf) 4 cap PO BID 08/28/19 -] REVIEW OF SYSTEMS CONSTITUTIONAL: Absent: fever, chills, diaphoresis, generalized weakness, malaise, loss of appetite, weight change HEENT: Absent: rhinorrhea, nasal congestion, throat pain, throat swelling, difficulty swallowing, mouth swelling, ear pain, eye pain, visual changes CARDIOVASCULAR: Absent: chest pain, syncope, palpitations, irregular heart rate, lightheadedness, peripheral edema RESPIRATORY: Absent: cough, shortness of breath, dyspnea with exertion, orthopnea, wheezing, stridor, hemoptysis GASTROINTESTINAL:abdominal pain, nausea, vomiting, diarrhea Absent: abdominal distension,constipation, melena, hematochezia GENITOURINARY: Absent: dysuria, frequency, urgency, hesitancy, hematuria, flank pain, genital pain MUSCULOSKELETAL: Absent: myalgia, arthralgia, joint swelling, back pain, neck pain SKIN: Absent: rash, itching, pallor HEMATOLOGIC/IMMUNOLOGIC: Absent: easy bleeding, easy bruising, lymphadenopathy, frequent infections ENDOCRINE: Absent: unexplained weight gain, unexplained weight loss, heat intolerance, cold intolerance NEUROLOGIC: Absent: headache, focal weakness or paresthesias, dizziness, unsteady gait, seizure, mental status changes, bladder or bowel incontinence PSYCHIATRIC: Absent: anxiety, depression, suicidal or homicidal ideation, hallucinations. PHYSICAL EXAMINATION Vital Signs - 24 hr 10/02/19 10/02/19 10/02/19 08:58 08:59 14:09 Temperature 98.5 F Pulse Rate 90 Pulse Rate [ 85 Left] Respiratory 19 18 Rate Blood Pressure 144/75 144/75 Blood Pressure 142/80 [Left Arm] O2 Sat by Pulse 100 100 Oximetry (%) GENERAL: Awake, alert, and fully oriented, in no acute distress. HEAD: Normal with no signs of trauma. EYES: PERRLA, EOMI, sclera anicteric, conjunctiva clear. EARS, NOSE, THROAT: Moist mucous membranes. NECK: Normal range of motion, supple LUNGS: Breath sounds equal, clear to auscultation bilaterally. HEART: Regular rate and rhythm, normal S1 and S2 ABDOMEN: Soft,+mildline scar, +infraumbilical TTP, +mass palpated at infraumbilical area, not distended, normoactive bowel sounds MUSCULOSKELETAL: Normal range of motion at all joints. LOWER EXTREMITIES: 2+ pulses, warm, well-perfused. No peripheral edema. NEUROLOGICAL: Cranial nerves II-XII intact. Normal speech. Normal gait. PSYCHIATRIC: Cooperative. Good eye contact. Appropriate mood and affect. SKIN: Warm, dry, normal turgor. Laboratory Results - last 24 hr 10/02/19 10/02/19 10/02/19 10:20 10:20 10:20 WBC 18.3 H RBC 4.90 Hgb 15.1 Hct 45.8 MCV 93.4 MCH 30.8 MCHC 33.0 RDW 13.3 Plt Count 293 MPV 7.7 Absolute Neuts (auto) 16.7 H Neutrophils % 91.1 H D Neutrophils % (Manual) 85.9 H Band Neutrophils % 3.0 Lymphocytes % 3.9 L D Lymphocytes % (Manual) 4.0 L D Monocytes % 4.4 Monocytes % (Manual) 6 Eosinophils % 0.0 D Eosinophils % (Manual) 0.0 Basophils % 0.6 Basophils % (Manual) 0.0 Myelocytes % (Man) 0 Promyelocytes % (Man) 0 Blast Cells % (Manual) 0 Nucleated RBC % 0 Metamyelocytes 0 Hypochromia 0 Platelet Estimate Normal Polychromasia 0 Poikilocytosis 0 Anisocytosis 0 Microcytosis 0 Macrocytosis 0 PT with INR 12.90 INR 1.09 PTT (Actin FS) 26.8 Sodium 139 Potassium 4.5 Chloride 105 Carbon Dioxide 23 Anion Gap 11 BUN 19.5 H Creatinine 1.0 Est GFR (CKD-EPI)AfAm 93.08 Est GFR (CKD-EPI)NonAf 80.31 Random Glucose 137 H Lactic Acid Calcium 10.0 Phosphorus 1.8 L Magnesium 2.0 Total Bilirubin 1.0 AST 28 ALT 21 Alkaline Phosphatase 67 Creatine Kinase 94 Troponin I 0.02 Total Protein 7.5 Albumin 4.5 Lipase 84 Urine Color Urine Appearance Urine pH Ur Specific [place] Urine Protein Urine Glucose (UA) Urine Ketones Urine Blood Urine Nitrite Urine Bilirubin Urine Urobilinogen Ur Leukocyte Esterase Urine WBC (Auto) Urine RBC (Auto) Urine Casts (Auto) U Epithel Cells (Auto) Urine Bacteria (Auto) Blood Type Antibody Screen 10/02/19 10/02/19 10/02/19 10:20 10:20 12:20 WBC RBC Hgb Hct MCV MCH MCHC RDW Plt Count MPV Absolute Neuts (auto) Neutrophils % Neutrophils % (Manual) Band Neutrophils % Lymphocytes % Lymphocytes % (Manual) Monocytes % Monocytes % (Manual) Eosinophils % Eosinophils % (Manual) Basophils % Basophils % (Manual) Myelocytes % (Man) Promyelocytes % (Man) Blast Cells % (Manual) Nucleated RBC % Metamyelocytes Hypochromia Platelet Estimate Polychromasia Poikilocytosis Anisocytosis Microcytosis Macrocytosis PT with INR INR PTT (Actin FS) Sodium Potassium Chloride Carbon Dioxide Anion Gap BUN Creatinine Est GFR (CKD-EPI)AfAm Est GFR (CKD-EPI)NonAf Random Glucose Lactic Acid 2.8 H* Calcium Phosphorus Magnesium Total Bilirubin AST ALT Alkaline Phosphatase Creatine Kinase Troponin I Total Protein Albumin Lipase Urine Color Yellow Urine Appearance Clear Urine pH 8.5 H Ur Specific [place] 1.025 Urine Protein Trace Urine Glucose (UA) Negative Urine Ketones 3+ H Urine Blood 3+ H Urine Nitrite Negative Urine Bilirubin Negative Urine Urobilinogen 0.2 Ur Leukocyte Esterase Trace Urine WBC (Auto) 11 Urine RBC (Auto) 564 Urine Casts (Auto) 3 U Epithel Cells (Auto) 12 Urine Bacteria (Auto) 5 Blood Type A POSITIVE Antibody Screen Negative 10/02/19 12:25 WBC RBC Hgb Hct MCV MCH MCHC RDW Plt Count MPV Absolute Neuts (auto) Neutrophils % Neutrophils % (Manual) Band Neutrophils % Lymphocytes % Lymphocytes % (Manual) Monocytes % Monocytes % (Manual) Eosinophils % Eosinophils % (Manual) Basophils % Basophils % (Manual) Myelocytes % (Man) Promyelocytes % (Man) Blast Cells % (Manual) Nucleated RBC % Metamyelocytes Hypochromia Platelet Estimate Polychromasia Poikilocytosis Anisocytosis Microcytosis Macrocytosis PT with INR INR PTT (Actin FS) Sodium Potassium Chloride Carbon Dioxide Anion Gap BUN Creatinine Est GFR (CKD-EPI)AfAm Est GFR (CKD-EPI)NonAf Random Glucose Lactic Acid 1.1 Calcium Phosphorus Magnesium Total Bilirubin AST ALT Alkaline Phosphatase Creatine Kinase Troponin I Total Protein Albumin Lipase Urine Color Urine Appearance Urine pH Ur Specific [place] Urine Protein Urine Glucose (UA) Urine Ketones Urine Blood Urine Nitrite Urine Bilirubin Urine Urobilinogen Ur Leukocyte Esterase Urine WBC (Auto) Urine RBC (Auto) Urine Casts (Auto) U Epithel Cells (Auto) Urine Bacteria (Auto) Blood Type Antibody Screen ASSESSMENT/PLAN: Patient is a 64 year male with past medical history of Crohn's disease presenting to the ED with LUQ/LLQ pain for 1 day. #Abdominal pain -likely 2/2 colitis -CTAP with contrast: Distended, somewhat thickened and largely fluid-filled ascending colon and cecum with mild inflammation and adjacent free fluid suggesting colitis. -will order c.diff, stool studies -Ceftriaxone and flagyl given at the ED -will start Levaquin 500mg daily and continue flagyl 500mg tid -keep NPo for now, will advance diet as tolerated -Zofran prn for nausea -Tylenol prn for pain -IVF -Surgery (Dr. Herrera) consulted. REcommendations appreciated. #Hx Crohn's Disease -Continue home Balsalazide 4cap bid #Hematuria -known finding, was evaluated by uro from previous visit -recommended outpatient follow up for microscopic hematuria #FEN -IV D5-NS @ 83cc/hr -Electrolytes wnl, routine bmp monitoring -NPO #Prophylaxis -Lovenox 40mg sq daily #Disposition -full code -med surg Visit type - Emergency Visit Emergency Visit: Yes ED Registration Date: 10/02/19 Care time: The patient presented to the Emergency Department on the above date and was hospitalized for further evaluation of their emergent condition. - New Patient This patient is new to me today: Yes Date on this admission: 10/02/19 - Critical Care Critical Care patient: No ATTENDING PHYSICIAN STATEMENT I saw and evaluated the patient. I reviewed the resident's note and discussed the case with the resident. I agree with the resident's findings and plan as documented. SUBJECTIVE: OBJECTIVE: ASSESSMENT AND PLAN:
[2019-10-02] MEDS ORDERED: ONDANSETRON 4 MG/2 ML VIAL IVPUSH PRN (18:00)
[2019-10-02] MEDS: DEXTROSE 5%-NORMAL SALINE 1,000 ML IV SCH (18:25)
[2019-10-02 18:38] VITALS: BMI 24.4
--- NOTE | 2019-10-02 21:53 | CONSULT ---
- Consultation REQUESTING PROVIDER: Ubaldo Ruiz MD CONSULT REQUEST: We have been asked to surgically evaluate this patient for abdominal pain. PCP:Chris Weiss MD HISTORY OF PRESENT ILLNESS: JENNIE who is a 64 y/o male s/p ex-lap for an acute abdomen and CT evidence of a small bowel intussusception 08/27/2019; he was only found to have an umbilical hernia; he has a h/o Crohns disease for which he is being followed by Dr. Feliz Chun; at the time of surgery there was no evidence of ileitis or other outward signs of Crohns disease; he tells me he was to have a colonoscopy next week; he presented today w/sudden onset of sharp/crampy abdominal pain which evolved rapidly over # hours localized to the LLQ and LUQ; he had associated chills and profuse sweating and nausea and a loose BM; there was no blood. He has o/w recovered well from his recent surgery and he was seen twice post op w/o incident; he has NOC today PMHx: Crohns disease PSHx: as above Home Medications Medication Instructions Recorded Balsalazide Disodium [Colazal (Nf) 4 cap PO BID 08/28/19 -] Allergies Allergy/AdvReac Type Severity Reaction Status Date / Time Penicillins Allergy Mild Verified 09/06/19 11:05 REVIEW OF SYSTEMS: CONSTITUTIONAL: Absent: fever, chills, diaphoresis, generalized weakness, malaise, loss of appetite, weight change CARDIOVASCULAR: Absent: chest pain, syncope, palpitations, irregular heart rate, lightheadedness, peripheral edema RESPIRATORY: Absent: cough, shortness of breath, dyspnea with exertion, wheezing, stridor, hemoptysis GASTROINTESTINAL: Present: abdominal pain, abdominal distension, nausea, vomiting, diarrhea, constipation. Absent: melena, hematochezia GENITOURINARY: Absent: dysuria, frequency, urgency, hesitancy, hematuria, flank pain, genital pain MUSCULOSKELETAL: Absent: myalgia, arthralgia, joint swelling, back pain, neck pain SKIN: Absent: rash, itching, pallor HEMATOLOGIC/IMMUNOLOGIC: Absent: easy bleeding, easy bruising, lymphadenopathy NEUROLOGIC: Absent: headache, focal weakness, paresthesias, dizziness, unsteady gait, seizure, mental status changes, bladder or bowel incontinence PSYCHIATRIC: Absent: anxiety, depression, suicidal or homicidal ideation, hallucinations. PHYSICAL EXAM: GENERAL: Awake, alert, and fully oriented, in no acute distress. HEAD: Normal with no signs of trauma. EYES: PERRL, sclera anicteric, conjunctiva clear. NECK: Normal ROM, supple without lymphadenopathy, JVD, or masses. ABDOMEN: Soft, minimal if any ttp diffusely, not distended, normoactive bowel sounds, no guarding, no rebound, no masses. No organomegaly. No hernias; healed midline surgical scar. MUSCULOSKELETAL: Normal ROM at all joints. No bony deformities or tenderness. No CVA tenderness. UPPER EXTREMITIES: 2+ pulses, warm, well-perfused. No cyanosis. Cap refill <2 seconds. No peripheral edema. LOWER EXTREMITIES: 2+ pulses, warm, well-perfused. No calf tenderness. No peripheral edema. NEUROLOGICAL: Normal speech, gait not observed. PSYCH: Cooperative. Good eye contact. Appropriate mood and affect. SKIN: Warm, dry, normal turgor, no rashes or lesions noted. Vital Signs Temperature 98.6 F 10/02/19 21:24 Pulse Rate 94 H 10/02/19 21:24 Respiratory Rate 18 10/02/19 21:24 Blood Pressure 109/55 L 10/02/19 21:24 O2 Sat by Pulse Oximetry (%) 97 10/02/19 21:24 Lab Results WBC 18.3 K/mm3 (4.0-10.0) H 10/02/19 10:20 RBC 4.90 M/mm3 (4.00-5.60) 10/02/19 10:20 Hgb 15.1 GM/dL (11.7-16.9) 10/02/19 10:20 Hct 45.8 % (35.4-49) 10/02/19 10:20 MCV 93.4 fl (80-96) 10/02/19 10:20 MCHC 33.0 g/dl (32.0-35.9) 10/02/19 10:20 RDW 13.3 % (11.9-15.9) 10/02/19 10:20 Plt Count 293 K/MM3 (134-434) 10/02/19 10:20 INR 1.09 (0.83-1.09) 10/02/19 10:20 Sodium 139 mmol/L (136-145) 10/02/19 10:20 Potassium 4.5 mmol/L (3.5-5.1) 10/02/19 10:20 Chloride 105 mmol/L (98-107) 10/02/19 10:20 Carbon Dioxide 23 mmol/L (21-32) 10/02/19 10:20 Anion Gap 11 MMOL/L (8-16) 10/02/19 10:20 BUN 19.5 mg/dL (7-18) H 10/02/19 10:20 Creatinine 1.0 mg/dL (0.55-1.3) 10/02/19 10:20 Random Glucose 137 mg/dL (74-106) H 10/02/19 10:20 Calcium 10.0 mg/dL (8.5-10.1) 10/02/19 10:20 Blood Type A POSITIVE 10/02/19 10:20 Antibody Screen Negative 10/02/19 10:20 CT scan a/p reviewed; images and report IMP: abdominal pain; possible Crohns colitis; appendicitis by hx. and PE and imaging is not present and there is no evidence of an acute surgical abdomen. PLAN: Suggest NPO/IVF/IVAB's/serial exams and imaging as indicated;GI evaluation and consultation w/the patients compotype operator. Mert Herrera MD FACS
[2019-10-02] MEDS ORDERED: BALSALAZIDE DISODIUM PO SCH (22:00)
[2019-10-03] MEDS: ACETAMINOPHEN 1000 MG/100 ML VIAL (NON FORMULARY) IVPB PRN ×2 (03:23→11:12)
[2019-10-03 07:57] LABS: BASO % 0.2 % (0-2.0); EOS % 0.6 % (0-4.5); HEMOGLOBIN 13.5 GM/dL (11.7-16.9); LYMPH % 12.3 % (8-40); MCHC 33.7 g/dl (32.0-35.9); MEAN CELL VOLUME 94.8 fl (80-96); MEAN PLT VOLUME 7.6 fl (7.5-11.1); NEUT % 77.9 % (42.8-82.8); PLATELET COUNT 232 K/MM3 (134-434); RBC 4.22 M/mm3 (4.00-5.60); RDW 13.6 % (11.9-15.9); WHITE BLOOD COUNT 15.4 K/mm3 (4.0-10.0)
[2019-10-03 08:37] LABS: ALBUMIN 3.2 g/dl (3.4-5.0); BILIRUBIN,TOTAL 0.8 mg/dL (0.2-1); BLOOD UREA NITROGEN 11.4 mg/dL (7-18); CALCIUM 8.3 mg/dL (8.5-10.1); CREATININE 0.8 mg/dL (0.55-1.3); MAGNESIUM 2.1 mg/dL (1.8-2.4); PHOSPHOROUS 2.1 mg/dL (2.5-4.9); POTASSIUM 3.5 mmol/L (3.5-5.1); TOT PROT 5.5 g/dl (6.4-8.2)
[2019-10-03] MEDS: DEXTROSE 5%-NORMAL SALINE 1,000 ML IV SCH ×2 (09:38→17:06)
[2019-10-03] MEDS: ENOXAPARIN NA (PORCINE) 40 MG/0.4 ML DISP.SYRIN SQ SCH (09:39)
--- NOTE | 2019-10-03 10:45 | EKG ---
Test Reason : Blood Pressure : / mmHG Vent. Rate : 077 BPM Atrial Rate : 077 BPM P-R Int : 154 ms QRS Dur : 070 ms QT Int : 382 ms P-R-T Axes : 054 028 057 degrees QTc Int : 432 ms NORMAL SINUS RHYTHM LOW VOLTAGE QRS CANNOT RULE OUT ANTERIOR INFARCT , AGE UNDETERMINED ABNORMAL ECG WHEN COMPARED WITH ECG OF 26-AUG-2019 17:01, NO SIGNIFICANT CHANGE WAS FOUND Confirmed by Clarke Mccoy ([id number]) on 10/03/2019 10:45:24 AM Referred By: Confirmed By:Clarke Mccoy
[2019-10-03] MEDS ORDERED: POLYETHYLENE GLYCOL 3350 119 GM BTL PO ONE (11:59)
[2019-10-03] MEDS ORDERED: DOCUSATE SODIUM 100 MG CAPSULE (FP) PO PRN (12:00)
--- NOTE | 2019-10-03 13:08 | PN ---
Teaching Attending Note Name of Resident: Ana Bang ATTENDING PHYSICIAN STATEMENT I saw and evaluated the patient. I reviewed the resident's note and discussed the case with the resident. I agree with the resident's findings and plan as documented. SUBJECTIVE: pt seen and examined at bedside, denies complains, asking to go home OBJECTIVE: Last Vital Signs Temp Pulse Resp BP Pulse Ox 99.5 F 88 18 124/71 97 10/03/19 10:00 10/03/19 10:00 10/03/19 10:00 10/03/19 10:00 10/03/19 10:00 GENERAL: Awake, alert, and fully oriented, in no acute distress. HEENT: AT/NC, not p/c/j, neck supple, small submandibular node noted LUNGS: Breath sounds equal, clear to auscultation bilaterally. HEART: Regular rate and rhythm, normal S1 and S2 ABDOMEN: Soft, non tender, mildline scar, normoactive bowel sounds MUSCULOSKELETAL: Normal range of motion at all joints. LOWER EXTREMITIES: 2+ pulses, warm, well-perfused. No peripheral edema. NEUROLOGICAL: no focal deficit. Normal speech. Normal gait. SKIN: Warm, dry, normal turgor. CBCD WBC 15.4 K/mm3 (4.0-10.0) H 10/03/19 07:11 RBC 4.22 M/mm3 (4.00-5.60) 10/03/19 07:11 Hgb 13.5 GM/dL (11.7-16.9) 10/03/19 07:11 Hct 40.0 % (35.4-49) 10/03/19 07:11 MCV 94.8 fl (80-96) 10/03/19 07:11 MCHC 33.7 g/dl (32.0-35.9) 10/03/19 07:11 RDW 13.6 % (11.9-15.9) 10/03/19 07:11 Plt Count 232 K/MM3 (134-434) D 10/03/19 07:11 MPV 7.6 fl (7.5-11.1) 10/03/19 07:11 CMP Sodium 144 mmol/L (136-145) 10/03/19 07:11 Potassium 3.5 mmol/L (3.5-5.1) 10/03/19 07:11 Chloride 112 mmol/L (98-107) H 10/03/19 07:11 Carbon Dioxide 24 mmol/L (21-32) 10/03/19 07:11 Anion Gap 8 MMOL/L (8-16) 10/03/19 07:11 BUN 11.4 mg/dL (7-18) 10/03/19 07:11 Creatinine 0.8 mg/dL (0.55-1.3) 10/03/19 07:11 Calcium 8.3 mg/dL (8.5-10.1) L 10/03/19 07:11 Total Bilirubin 0.8 mg/dL (0.2-1) 10/03/19 07:11 AST 20 U/L (15-37) 10/03/19 07:11 ALT 15 U/L (13-61) 10/03/19 07:11 Alkaline Phosphatase 47 U/L (45-117) 10/03/19 07:11 Total Protein 5.5 g/dl (6.4-8.2) L 10/03/19 07:11 Albumin 3.2 g/dl (3.4-5.0) L 10/03/19 07:11 Current Medications Generic Name Dose Route Start Last Admin Trade Name Freq PRN Reason Stop Dose Admin Acetaminophen 1,000 mg 10/02/19 16:20 10/03/19 11:12 Ofirmev Injection - IVPB 10/03/19 16:20 1,000 mg Q6H PRN Administration PAIN LEVEL 6-10 Docusate Sodium 100 mg 10/03/19 12:00 Colace - PO BID PRN CONSTIPATION Enoxaparin Sodium 40 mg 10/03/19 10:00 10/03/19 09:39 Lovenox - SQ 40 mg DAILY BLUE Administration Dextrose/Sodium Chloride 1,000 mls @ 83 mls/hr 10/02/19 16:30 10/03/19 09:38 D5-Ns - IV 83 mls/hr ASDIR BLUE Administration Metronidazole 250 mg in 50 mls @ 50 mls/hr 10/02/19 22:00 10/03/19 10:33 Flagyl 250mg Premixed Ivpb - IVPB 50 mls/hr Q8H-IV BLUE Administration Levofloxacin 500 mg in 100 mls @ 100 mls/hr 10/02/19 16:30 08/04/20 09:39 Levaquin 500 Mg Premixed Ivpb - IVPB 100 mls/hr DAILY BLUE Administration Protocol Non-Formulary Medication 4 cap 10/02/19 22:00 Balsalazide Disodium PO BID BLUE Ondansetron HCl 4 mg 10/02/19 18:00 Zofran Injection IVPUSH Q6H PRN NAUSEA Polyethylene Glycol 17 gm 10/04/19 10:00 Miralax (For Daily Use) - PO DAILY BLUE ASSESSMENT AND PLAN: 64 yo male with past medical history of Crohns disease presenting to the ED with LUQ and LLQ pain for 1 day with three episodes of watery, nonbloody diarrhea followed by nausea, abdominal pain and 10 episodes of NBNB vomiting # abdominal pain likely due to colitis - now resolved - was constipating, but had BM this morning (formed stool), no clinical evidence of obstruction - CTAP with contrast: Distended, somewhat thickened and largely fluid-filled ascending colon and cecum with mild inflammation and adjacent free fluid suggesting colitis - started on IV abx, WBC trending down, T100 noted yesterday - tolerating clear liquids - Check crp, b12, vit d, fecal calprotectin - c/w balsalazide - miralax - has appointment for outpatient colonoscopy - surgeon consult appreciated # Microscopic hematuria - pt stated he had it since 10 year, cystoscopy 8 years ago was negative - evaluated by urologist last visit and recommended outpatient work up DVT prophylaxis
--- NOTE | 2019-10-03 13:09 | PN ---
Physical Exam: SUBJECTIVE: Patient seen and examined. Had a bowel movement this morning, but hard stool noted. OTherwise, patient reports abdominal pain is better. No nausea or vomiting. recorded temp with low grade fever overnight. OBJECTIVE: Vital Signs Temperature 99.5 F 10/03/19 10:00 Pulse Rate 88 10/03/19 10:00 Respiratory Rate 18 10/03/19 10:00 Blood Pressure 124/71 10/03/19 10:00 O2 Sat by Pulse Oximetry (%) 97 10/03/19 10:00 GENERAL: Awake, alert, and fully oriented, in no acute distress. HEAD: Normal with no signs of trauma. EYES: PERRLA, EOMI, sclera anicteric, conjunctiva clear. EARS, NOSE, THROAT: Moist mucous membranes. NECK: Normal range of motion, supple LUNGS: Breath sounds equal, clear to auscultation bilaterally. HEART: Regular rate and rhythm, normal S1 and S2 ABDOMEN: Soft, nontender, not distended, normoactive bowel sounds MUSCULOSKELETAL: Normal range of motion at all joints. LOWER EXTREMITIES: 2+ pulses, warm, well-perfused. No peripheral edema. NEUROLOGICAL: Cranial nerves II-XII intact. Normal speech. Normal gait. PSYCHIATRIC: Cooperative. Good eye contact. Appropriate mood and affect. SKIN: Warm, dry, normal turgor. Laboratory Results - last 24 hr 10/02/19 10/02/19 10/02/19 12:20 12:25 15:35 WBC RBC Hgb Hct MCV MCH MCHC RDW Plt Count MPV Absolute Neuts (auto) Neutrophils % Lymphocytes % Monocytes % Eosinophils % Basophils % Nucleated RBC % Sodium Potassium Chloride Carbon Dioxide Anion Gap BUN Creatinine Est GFR (CKD-EPI)AfAm Est GFR (CKD-EPI)NonAf Random Glucose Lactic Acid 1.1 Calcium Phosphorus Magnesium Total Bilirubin AST ALT Alkaline Phosphatase Total Protein Albumin TSH Urine Color Yellow Urine Appearance Clear Urine pH 8.5 H Ur Specific [place] 1.025 Urine Protein Trace Urine Glucose (UA) Negative Urine Ketones 3+ H Urine Blood 3+ H Urine Nitrite Negative Urine Bilirubin Negative Urine Urobilinogen 0.2 Ur Leukocyte Esterase Trace Urine WBC (Auto) 11 Urine RBC (Auto) 564 Urine Casts (Auto) 3 U Epithel Cells (Auto) 12 Urine Bacteria (Auto) 5 COVID-19 (YAZMIN) Not detected 10/03/19 10/03/19 07:11 07:11 WBC 15.4 H RBC 4.22 Hgb 13.5 Hct 40.0 MCV 94.8 MCH 32.0 MCHC 33.7 RDW 13.6 Plt Count 232 D MPV 7.6 Absolute Neuts (auto) 12.0 H Neutrophils % 77.9 Lymphocytes % 12.3 D Monocytes % 9.0 D Eosinophils % 0.6 D Basophils % 0.2 Nucleated RBC % 0 Sodium 144 Potassium 3.5 Chloride 112 H Carbon Dioxide 24 Anion Gap 8 BUN 11.4 Creatinine 0.8 Est GFR (CKD-EPI)AfAm 110.96 Est GFR (CKD-EPI)NonAf 95.74 Random Glucose 104 Lactic Acid Calcium 8.3 L Phosphorus 2.1 L Magnesium 2.1 Total Bilirubin 0.8 AST 20 ALT 15 Alkaline Phosphatase 47 Total Protein 5.5 L Albumin 3.2 L TSH 0.88 Urine Color Urine Appearance Urine pH Ur Specific [place] Urine Protein Urine Glucose (UA) Urine Ketones Urine Blood Urine Nitrite Urine Bilirubin Urine Urobilinogen Ur Leukocyte Esterase Urine WBC (Auto) Urine RBC (Auto) Urine Casts (Auto) U Epithel Cells (Auto) Urine Bacteria (Auto) COVID-19 (YAZMIN) Active Medications Generic Name Dose Route Start Last Admin Trade Name Freq PRN Reason Stop Dose Admin Acetaminophen 1,000 mg 10/02/19 16:20 10/03/19 11:12 Ofirmev Injection - IVPB 10/03/19 16:20 1,000 mg Q6H PRN Administration PAIN LEVEL 6-10 Docusate Sodium 100 mg 10/03/19 12:00 Colace - PO BID PRN CONSTIPATION Enoxaparin Sodium 40 mg 10/03/19 10:00 10/03/19 09:39 Lovenox - SQ 40 mg DAILY BLUE Administration Dextrose/Sodium Chloride 1,000 mls @ 83 mls/hr 10/02/19 16:30 10/03/19 09:38 D5-Ns - IV 83 mls/hr ASDIR BLUE Administration Metronidazole 250 mg in 50 mls @ 50 mls/hr 10/02/19 22:00 10/03/19 10:33 Flagyl 250mg Premixed Ivpb - IVPB 50 mls/hr Q8H-IV BLUE Administration Levofloxacin 500 mg in 100 mls @ 100 mls/hr 10/02/19 16:30 10/03/19 09:39 Levaquin 500 Mg Premixed Ivpb - IVPB 100 mls/hr DAILY BLUE Administration Protocol Non-Formulary Medication 4 cap 10/02/19 22:00 Balsalazide Disodium PO BID BLUE Ondansetron HCl 4 mg 10/02/19 18:00 Zofran Injection IVPUSH Q6H PRN NAUSEA Polyethylene Glycol 17 gm 10/04/19 10:00 Miralax (For Daily Use) - PO DAILY BLUE ASSESSMENT/PLAN: Patient is a 64 year male with past medical history of Crohn's disease presenting to the ED with LUQ/LLQ pain for 1 day. #Abdominal pain, improving -likely 2/2 colitis -CTAP with contrast: Distended, somewhat thickened and largely fluid-filled ascending colon and cecum with mild inflammation and adjacent free fluid suggesting colitis. -Ceftriaxone and flagyl given at the ED -will start Levaquin 500mg daily and continue flagyl 500mg tid -advance diet as tolerated -Zofran prn for nausea -Tylenol prn for pain -IVF -Surgery (Dr. Herrera) consulted. REcommendations appreciated. #Hx Crohn's Disease -Continue home Balsalazide 4cap bid #Hematuria -known finding, was evaluated by uro from previous visit -recommended outpatient follow up for microscopic hematuria #Constipation -will give miralax and colace #FEN -IV D5-NS @ 83cc/hr -Electrolytes wnl, routine bmp monitoring -Clear liquid, advance as tolerated #Prophylaxis -Lovenox 40mg sq daily #Disposition -full code -med surg Visit type - Emergency Visit Emergency Visit: Yes ED Registration Date: 10/02/19 Care time: The patient presented to the Emergency Department on the above date and was hospitalized for further evaluation of their emergent condition. - New Patient This patient is new to me today: No - Critical Care Critical Care patient: No ATTENDING PHYSICIAN STATEMENT I saw and evaluated the patient. I reviewed the resident's note and discussed the case with the resident. I agree with the resident's findings and plan as documented. SUBJECTIVE: OBJECTIVE: ASSESSMENT AND PLAN:
[2019-10-03] MEDS ORDERED: ACETAMINOPHEN 325 MG TABLET (FP) PO PRN (17:14)
[2019-10-04] MEDS ORDERED: PT OWN MED DRAWER 7, Y5N ONE (01:09)
[2019-10-04] MEDS: DEXTROSE 5%-NORMAL SALINE 1,000 ML IV SCH (01:22)
[2019-10-04] MEDS: TETRAHYDROZOLINE HCL EYE DROPS OU PRN ×2 (01:26→09:18)
[2019-10-04 07:10] LABS: BASO % 0.6 % (0-2.0); EOS % 2.8 % (0-4.5); HEMATOCRIT 41.2 % (35.4-49); HEMOGLOBIN 13.9 GM/dL (11.7-16.9); LYMPH % 26.8 % (8-40); MCH 31.6 pg (25.7-33.7); MCHC 33.6 g/dl (32.0-35.9); MEAN CELL VOLUME 94.1 fl (80-96); MEAN PLT VOLUME 7.6 fl (7.5-11.1); MONO % 12.5 % (3.8-10.2); NEUT % 57.3 % (42.8-82.8); PLATELET COUNT 242 K/MM3 (134-434); RBC 4.38 M/mm3 (4.00-5.60); RDW 13.3 % (11.9-15.9); WHITE BLOOD COUNT 8.1 K/mm3 (4.0-10.0)
[2019-10-04 07:46] LABS: ALBUMIN 3.3 g/dl (3.4-5.0); BILIRUBIN,TOTAL 0.7 mg/dL (0.2-1); BLOOD UREA NITROGEN 7.4 mg/dL (7-18); CALCIUM 8.4 mg/dL (8.5-10.1); CREATININE 0.8 mg/dL (0.55-1.3); POTASSIUM 3.9 mmol/L (3.5-5.1); TOT PROT 5.7 g/dl (6.4-8.2)
[2019-10-04 08:48] VITALS: BP 130/80; PULSE 75; TEMP 98
[2019-10-04] MEDS: ENOXAPARIN NA (PORCINE) 40 MG/0.4 ML DISP.SYRIN SQ SCH (09:18)
[2019-10-04] MEDS ORDERED: POLYETHYLENE GLYCOL 3350 119 GM BTL PO SCH (10:00)
--- NOTE | 2019-10-04 11:54 | PN ---
Teaching Attending Note Name of Resident: Ana Bang ATTENDING PHYSICIAN STATEMENT I saw and evaluated the patient. I reviewed the resident's note and discussed the case with the resident. I agree with the resident's findings and plan as documented. SUBJECTIVE: pt seen and examined OBJECTIVE: Last Vital Signs Temp Pulse Resp BP Pulse Ox 98.0 F 75 18 130/80 97 10/04/19 08:47 10/04/19 08:47 10/04/19 08:47 10/04/19 08:47 10/04/19 08:50 GENERAL: Awake, alert, and fully oriented, in no acute distress. HEENT: AT/NC, not p/c/j, neck supple, small submandibular node noted LUNGS: Breath sounds equal, clear to auscultation bilaterally. HEART: Regular rate and rhythm, normal S1 and S2 ABDOMEN: Soft, non tender, mildline scar, normoactive bowel sounds MUSCULOSKELETAL: Normal range of motion at all joints. LOWER EXTREMITIES: 2+ pulses, warm, well-perfused. No peripheral edema. NEUROLOGICAL: no focal deficit. Normal speech. Normal gait. SKIN: Warm, dry, normal turgor. CBCD WBC 8.1 K/mm3 (4.0-10.0) 10/04/19 06:20 RBC 4.38 M/mm3 (4.00-5.60) 10/04/19 06:20 Hgb 13.9 GM/dL (11.7-16.9) 10/04/19 06:20 Hct 41.2 % (35.4-49) 10/04/19 06:20 MCV 94.1 fl (80-96) 10/04/19 06:20 MCHC 33.6 g/dl (32.0-35.9) 10/04/19 06:20 RDW 13.3 % (11.9-15.9) 10/04/19 06:20 Plt Count 242 K/MM3 (134-434) 10/04/19 06:20 MPV 7.6 fl (7.5-11.1) 10/04/19 06:20 CMP Sodium 143 mmol/L (136-145) 10/04/19 06:20 Potassium 3.9 mmol/L (3.5-5.1) 10/04/19 06:20 Chloride 110 mmol/L (98-107) H 10/04/19 06:20 Carbon Dioxide 26 mmol/L (21-32) 10/04/19 06:20 Anion Gap 7 MMOL/L (8-16) L 10/04/19 06:20 BUN 7.4 mg/dL (7-18) 10/04/19 06:20 Creatinine 0.8 mg/dL (0.55-1.3) 10/04/19 06:20 Calcium 8.4 mg/dL (8.5-10.1) L 10/04/19 06:20 Total Bilirubin 0.7 mg/dL (0.2-1) 10/04/19 06:20 AST 20 U/L (15-37) 10/04/19 06:20 ALT 16 U/L (13-61) 10/04/19 06:20 Alkaline Phosphatase 49 U/L (45-117) 10/04/19 06:20 Total Protein 5.7 g/dl (6.4-8.2) L 10/04/19 06:20 Albumin 3.3 g/dl (3.4-5.0) L 10/04/19 06:20 Active Medications Acetaminophen (Tylenol -) 650 mg PO Q6H PRN PRN Reason: Fever Or Pain Last Admin: 10/03/19 17:37 Dose: 650 mg Documented by: Docusate Sodium (Colace -) 100 mg PO BID PRN PRN Reason: CONSTIPATION Last Admin: 10/04/19 09:18 Dose: 100 mg Documented by: Enoxaparin Sodium (Lovenox -) 40 mg SQ DAILY BLUE Last Admin: 10/04/19 09:18 Dose: 40 mg Documented by: Dextrose/Sodium Chloride (D5-Ns -) 1,000 mls @ 83 mls/hr IV ASDIR BLUE Last Admin: 10/04/19 01:22 Dose: 83 mls/hr Documented by: Metronidazole (Flagyl 250mg Premixed Ivpb -) 250 mg in 50 mls @ 50 mls/hr IVPB Q8H-IV BLUE Last Admin: 10/04/19 09:58 Dose: 50 mls/hr Documented by: Levofloxacin (Levaquin 500 Mg Premixed Ivpb -) 500 mg in 100 mls @ 100 mls/hr IVPB DAILY BLUE; Protocol Last Admin: 10/04/19 09:18 Dose: 100 mls/hr Documented by: Non-Formulary Medication (Balsalazide Disodium) 4 cap PO BID BLUE Ondansetron HCl (Zofran Injection) 4 mg IVPUSH Q6H PRN PRN Reason: NAUSEA Polyethylene Glycol (Miralax (For Daily Use) -) 17 gm PO DAILY BLUE Last Admin: 10/04/19 10:25 Dose: 17 gm Documented by: Tetrahydrozoline HCl (Visine -) 1 drop OU BID PRN PRN Reason: DRY EYES Last Admin: 10/04/19 09:18 Dose: 1 drp Documented by: ASSESSMENT AND PLAN: 64 yo male with past medical history of Crohns disease presenting to the ED with LUQ and LLQ pain for 1 day with three episodes of watery, nonbloody diarrhea followed by nausea, abdominal pain and 10 episodes of NBNB vomiting # abdominal pain likely due to colitis - now resolved - had B.M, non bloody, formed stool - afebrile, normal WBC, tolerating diet - CRP 0.4, normal B12 - doubt CD flare - c/w balsalazide - miralax, PO Abx for additional 5 days - has appointment for outpatient colonoscopy on Wednesday - surgeon consult appreciated # Microscopic hematuria - pt stated he had it since 10 year, cystoscopy 8 years ago was negative - evaluated by urologist last visit and recommended outpatient work up Mandibular [facility], advised to follow up with PCP for possible biopsy if persisted DVT prophylaxis Discharge to home and 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
--- NOTE | 2019-10-04 12:31 | DS ---
Physical Exam: SUBJECTIVE: Patient seen and examined. No acute events overnight. No fevers. No abdominal pain. +bm OBJECTIVE: Vital Signs Temperature 98.0 F 10/04/19 08:47 Pulse Rate 75 10/04/19 08:47 Respiratory Rate 18 10/04/19 08:47 Blood Pressure 130/80 10/04/19 08:47 O2 Sat by Pulse Oximetry (%) 97 10/04/19 08:50 PHYSICAL EXAM GENERAL: Awake, alert, and fully oriented, in no acute distress. HEAD: Normal with no signs of trauma. EYES: PERRLA, EOMI, sclera anicteric, conjunctiva clear. EARS, NOSE, THROAT: Moist mucous membranes. NECK: Normal range of motion, supple LUNGS: Breath sounds equal, clear to auscultation bilaterally. HEART: Regular rate and rhythm, normal S1 and S2 ABDOMEN: Soft, nontender, not distended, normoactive bowel sounds MUSCULOSKELETAL: Normal range of motion at all joints. LOWER EXTREMITIES: 2+ pulses, warm, well-perfused. No peripheral edema. NEUROLOGICAL: Cranial nerves II-XII intact. Normal speech. Normal gait. PSYCHIATRIC: Cooperative. Good eye contact. Appropriate mood and affect. SKIN: Warm, dry, normal turgor. LABS Laboratory Results - last 24 hr 10/04/19 10/04/19 06:20 06:20 WBC 8.1 RBC 4.38 Hgb 13.9 Hct 41.2 MCV 94.1 MCH 31.6 MCHC 33.6 RDW 13.3 Plt Count 242 MPV 7.6 Absolute Neuts (auto) 4.7 Neutrophils % 57.3 D Lymphocytes % 26.8 D Monocytes % 12.5 H Eosinophils % 2.8 D Basophils % 0.6 Nucleated RBC % 0 Sodium 143 Potassium 3.9 Chloride 110 H Carbon Dioxide 26 Anion Gap 7 L BUN 7.4 Creatinine 0.8 Est GFR (CKD-EPI)AfAm 110.96 Est GFR (CKD-EPI)NonAf 95.74 Random Glucose 98 Calcium 8.4 L Magnesium 2.0 Total Bilirubin 0.7 AST 20 ALT 16 Alkaline Phosphatase 49 C-Reactive Protein 0.4 H Total Protein 5.7 L Albumin 3.3 L Vitamin B12 521 HOSPITAL COURSE: Date of Admission:10/02/19 Date of Discharge: 10/04/19 Patient is a 64 year male with past medical history of Crohn's disease presenting to the ED with LUQ/LLQ pain for [address] abdomen showed possible colitis and stool. PAtient was started on Iv LEvaquin and Flagyl. Diet advanced as tolerated. Patient was also given stool softeners for constipation and after bowel movement, noted relief of abdominal discomfort. Patient continued to improved throughout hospital stay. Patient was discharged on PO antibiotics with instructions to follow up with PCP and GI as scheduled. Minutes to complete discharge: 36 Discharge Summary Problems reviewed: Yes Reason For Visit: COLITIS ABD PAIN Current Active Problems Abdominal pain (Acute) Colitis (Acute) Condition: Stable - Instructions Diet, Activity, Other Instructions: Your visit You were admitted to the hospital because you had belly pain. CAT scan of your belly showed you had an inflammation on your large bowels and constipation. You were given IV antibiotics and stool softeners and your belly pain improved. Please follow up with your primary care doctor and membership sales manager as scheduled. Medications Please take the following medications as prescribed: 1. Levaquin 500mg once daily for 2 more days starting tomorrow. 2. Flagyl 500mg three times a day for 3 more days starting tonight. Please continue your home medications. Follow up Please follow up with your primary care doctor within 1 week. Please follow up with your membership sales manager as scheduled. Additional info Please call 911 or go to the emergency room if with any worsening fevers, chills, headache, dizziness, chest pain, shortness of breath, belly pain, or any new concerns noted. Referrals: Gaurav Simmons MD [Staff Physician] - Christina Coello MD [Primary Care Provider] - Demetrius Chun MD [Staff Physician] - Disposition: HOME - Home Medications Comprehensive Discharge Medication List: Ambulatory Orders Balsalazide Disodium [Colazal (Nf) -] 4 cap PO BID 08/28/19 Docusate Sodium [Colace -] 100 mg PO BID PRN #10 capsule 10/04/19 Levofloxacin [Levaquin] 500 mg PO DAILY #2 tablet 10/04/19 metroNIDAZOLE [Flagyl -] 500 mg PO TID #9 tablet 10/04/19 This patient is new to me today: No Emergency Visit: Yes ED Registration Date: 10/02/19 Care time: The patient presented to the Emergency Department on the above date and was hospitalized for further evaluation of their emergent condition. Critical Care patient: No - Discharge Referral Referred to [facility] Med P.[facility] No ATTENDING PHYSICIAN STATEMENT I saw and evaluated the patient. I reviewed the resident's note and discussed the case with the resident. I agree with the resident's findings and plan as documented. SUBJECTIVE: OBJECTIVE: ASSESSMENT AND PLAN:
== END 2019-10-04 15:38 | disposition home or self-care (01) | DRG 249 ==
LOC: JER 08:57 → JERBED 15:56 → J6S 18:14
PROVIDERS: ADMIT Internal Medicine; ATTEND Student in an Organized Health Care Education/Training Program
DX: K52.9 Noninfective gastroenteritis and colitis, unspecified (principal); R10.12 Left upper quadrant pain; R11.2 Nausea with vomiting, unspecified; K59.00 Constipation, unspecified; E87.2 Acidosis; R31.29 Other microscopic hematuria; K50.90 Crohn's disease, unspecified, without complications; D72.829 Elevated white blood cell count, unspecified; K59.09 Other constipation
CPT/HCPCS: 36415; 74177-TC; 80053; 81003; 82306; 82550; 82607; 83605; 83690; 83735; 84100; 84443; 84484; 85025; 85610; 85730; 86140; 86850; 86900; 86901; 87045; 87046; 87086; 87177; 87205; 87209; 93005; 93010; 99285-25; J0131; Q9967; U0003

== ENCOUNTER 2019-12-08 17:02 | Inpatient (IN) | payer OTHER ==
--- NOTE | 2019-12-08 17:39 | PDOC ---
History of Present Illness - History of Present Illness Initial Comments: 12/08/19 20:26 64yo M w/ h/o recent abdominal surgery ([facility]) presents w/ diffuse ABD pain since this AM. He ate breakfast (eggs, potatoes, coffee) and so thereafter he started to feel ABD pain. He threw up three times (bilious, yellow). Since then the pain has been constant and unchanging. He had one bowel movement this AM (before breakfast) and said it was hard/he was constipated. Says he has been passing gas today. <Alexei Rodrigues - Last Filed: 12/09/19 12:23> <Shamika Damon - Last Filed: 12/09/19 17:07> - General Chief Complaint: Nausea/Vomiting Stated Complaint: ABDOMINAL PAIN Time Seen by Provider: 12/08/19 17:19 Past History - Medical History COPD: No GI Disorders: Yes (crohn's) - Surgical History Abdominal Surgery: Yes - Immunization History Immunization Up to Date: No - Psycho-Social/Smoking History Smoking Status: No Smoking History: Former smoker Have you smoked in the past 12 months: No Number of Cigarettes Smoked Daily: 0 Information on smoking cessation initiated: No - Substance Abuse Hx (Audit-C & DAST Scrn) How often the patient has a drink containing alcohol: Never Score: In Men: 4 or > Positive; In Women: 3 or > Positive: 0 Screen Result (Pos requires Nsg. Audit-10AR): Negative In the last yr the pt used illegal drug/Rx for NonMed reason: No Score: Yes response is considered Positive: 0 Screen Result (Positive result requires Nsg. DAST-10): Negative <Alexei Rodrigues - Last Filed: 12/09/19 12:23> <Shamika Damon - Last Filed: 12/09/19 17:07> - Medical History Allergies/Adverse Reactions: Allergies Allergy/AdvReac Type Severity Reaction Status Date / Time Penicillins Allergy Mild Verified 09/06/19 11:05 Home Medications: Ambulatory Orders Balsalazide Disodium [Colazal (Nf) -] 4 cap PO BID 08/28/19 Docusate Sodium [Colace -] 100 mg PO BID PRN #10 capsule 10/04/19 Levofloxacin [Levaquin] 500 mg PO DAILY #2 tablet 10/04/19 metroNIDAZOLE [Flagyl -] 500 mg PO TID #9 tablet 10/04/19 Review of Systems - Review of Systems Able to Perform ROS?: Yes Is the patient limited [place] proficient: No Constitutional: No: Chills, Diaphoresis, Fever HEENTM: No: Blurred Vision, Recent change in vision Respiratory: No: Cough, Shortness of Breath Cardiac (ROS): No: Chest Pain, Edema, Lightheadedness ABD/GI: Yes: Constipated, Abdominal cramping. No: Abdominal Distended, Diarrhea, Difficulty Swallowing, Tarry Stools : No: Burning, Dysuria, Hematuria Musculoskeletal: No: Joint Pain, Joint Swelling Integumentary: Yes: Pallor. No: Bruising Neurological: No: Headache, Numbness, Paresthesia Endocrine: No: Symptoms Reported Hematologic/Lymphatic: No: Symptoms Reported All Other Systems: Reviewed and Negative <Alexei Rodrigues - Last Filed: 12/09/19 12:23> *Physical Exam - Vital Signs Last Vital Signs Temp Pulse Resp BP Pulse Ox 97.3 F L 94 H 18 143/73 100 12/08/19 17:13 12/08/19 17:13 12/08/19 17:13 12/08/19 17:13 12/08/19 17:13 - Physical Exam General Appearance: Yes: Nourished, Appropriately Dressed, Apparent Distress HEENT: positive: EOMI, EFREN Neck: positive: Trachea midline, Supple Respiratory/Chest: positive: Lungs Clear, Normal Breath Sounds Cardiovascular: positive: Regular Rhythm, Regular Rate Gastrointestinal/Abdominal: positive: Soft, Guarding (mild, epigastric). negative: Increased Bowel Sounds, Rebound, Tenderness, Mass Musculoskeletal: positive: Normal Inspection. negative: CVA Tenderness Extremity: positive: Normal Capillary Refill, Normal Inspection, Normal Range of Motion Integumentary: positive: Normal Color, Dry, Warm Neurologic: positive: Fully Oriented, Alert, Normal Response <Alexei Rodrigues - Last Filed: 12/09/19 12:23> - Vital Signs Last Vital Signs Temp Pulse Resp BP Pulse Ox 98.3 F 88 20 143/85 98 12/09/19 16:02 12/09/19 16:02 12/09/19 16:02 12/09/19 16:02 12/09/19 16:02 <Shamika Damon - Last Filed: 12/09/19 17:07> Heart Score/ECG Review - [place]: Normal - ECG Impressions Normal ECG: Yes <Alexei Rodrigues - Last Filed: 12/09/19 12:23> ED Treatment Course - LABORATORY CBC & Chemistry Diagram: 12/09/19 09:27 12/09/19 09:27 <RaviAlexei gauthier Lionel - Last Filed: 12/09/19 12:23> - LABORATORY CBC & Chemistry Diagram: 12/09/19 09:27 12/09/19 09:27 - ADDITIONAL ORDERS Additional order review: 12/08/19 18:20 RBC 5.11 MCV 94.3 MCHC 33.6 RDW 14.2 MPV 8.6 D Neutrophils % 90.5 H Lymphocytes % 5.1 L D Monocytes % 4.1 Eosinophils % 0.0 D Basophils % 0.3 - Medications Given in the ED: ED Medications Discontinued Medications Generic Name Dose Route Start Last Admin Trade Name Joselo PRN Reason Stop Dose Admin Acetaminophen 1,000 mg 12/08/19 18:26 12/08/19 18:49 Ofirmev Injection - IVPB 12/08/19 18:27 1,000 mg ONCE ONE Administration Sodium Chloride 1,000 mls @ 1,000 mls/hr 12/09/19 06:51 12/09/19 08:22 Normal Saline - IV 12/09/19 07:50 1,000 mls/hr ASDIR STA Administration Lactated Ringer's 1,000 ml 12/08/19 18:26 12/08/19 18:49 Lactated Ringers Solution IV 12/08/19 18:27 1,000 ml ONCE ONE Administration Lactated Ringer's 1,000 ml 12/08/19 23:15 12/08/19 23:29 Lactated Ringers Solution IV 12/08/19 23:16 1,000 ml ONCE ONE Administration Lactated Ringer's 1,000 ml 12/09/19 02:48 12/09/19 03:21 Lactated Ringers Solution IV 12/09/19 02:49 1,000 ml ONCE ONE Administration Morphine Sulfate 4 mg 12/08/19 18:50 12/08/19 18:55 Morphine Injection - IVPUSH 12/08/19 18:51 4 mg ONCE ONE Administration Ondansetron HCl 4 mg 12/08/19 18:26 12/08/19 18:49 Zofran Injection IVPUSH 12/08/19 18:27 4 mg ONCE ONE Administration <Shamika Damon - Last Filed: 12/09/19 17:07> Medical Decision Making - Medical Decision Making 12/08/19 22:49 64yo M w/ hx of ABD surgery presents w diffuse ABD pain. lipase normal -> unlikely pancreatitis no RLQ tenderness, no fever -> unlikely appendicitis but will perform CT. no hx hematochezia or melena, H/H stable -> unlikely diverticulosis no hx kidney stones, no urinary symptoms -> unlikely stones of the kidney CT negative pain reporting resolution of sx. 12/08/19 23:23 lactic acid = 2.3 -> elevated lactate + severe ABD out of proportion to exam -> will repeat lactate out of concern for mesenteric ischemia 12/08/19 23:28 <Alexei Rodrigues - Last Filed: 12/09/19 12:23> Discharge - Discharge Information Problems reviewed: Yes - Admission No <Alexei Rodrigues - Last Filed: 12/09/19 12:23> - Discharge Information Problems reviewed: Yes - Admission Yes <Shamika Damon - Last Filed: 12/09/19 17:07> - Discharge Information Clinical Impression/Diagnosis: Lactic acidosis Abdominal pain Qualifiers: Abdominal location: generalized Qualified Code(s): R10.84 - Generalized abdominal pain Condition: Guarded
--- NOTE | 2019-12-08 18:19 | PDOC ---
Documentation entered by Tamara Cook SCRIBE, acting as scribe for Shamika Damon MD. Shamika Damon MD: This documentation has been prepared by the Joyce xavier Xhesika, SCRIBE, under my direction and personally reviewed by me in its entirety. I confirm that the documentation accurately reflects all work, treatment, procedures, and medical decision making performed by me. Attending Attestation - Resident Resident Name: Alexei Rodrigues - ED Attending Attestation I have performed the following: I have examined & evaluated the patient, The case was reviewed & discussed with the resident, I agree w/resident's findings & plan - HPI HPI: 12/08/19 17:54 The patient is a 64 year old male with a significant past medical history of Crohns disease (undiagnosed by colonoscopy), small bowel intussusception, recent hernia repair 08/27/19 and laparotomy, colitis in 10/18 who presents to the emergency department with abdominal pain that started after eating eggs, potatoes and coffee this morning. Pt states he was seen here 2 months ago for L flank pain, noted to have an elevated blood count and was treated with abx (Levaquin/flagyl). Pt describes his pain as 8/10, associated with nausea and 3 episodes of nbnb vomiting. Pt states his pain is similar to his symptoms he endorsed 2 weeks ago. Allergies: PCN Meds: as documented in EMR Primary Care Physician: Christina Coello GI: Dr. Chun 12/08/19 18:16 12/09/19 00:02 - Physicial Exam PE: 12/08/19 18:17 Agree with the resident's HPI and PE as documented in the electronic medical record. mild distress 2/2 pain, uncomfortable appearing, colicky, EOMI, PERRL, nl conjunctiva, anicteric; neck supple. lungs clear, RRR, abdomen soft with guarding on deep palpation, +diffuse abdominal tenderness, no CVAT. Back nontender. GAN x4, no focal neuro deficits. No peripheral edema. normal color for ethnicity, WWP. 12/08/19 19:13 - Medical Decision Making 12/08/19 18:19 Vital Signs Temp Pulse Resp BP Pulse Ox 97.3 F L 94 H 18 143/73 100 12/08/19 17:13 12/08/19 17:13 12/08/19 17:13 12/08/19 17:13 12/08/19 17:13 12/08/19 19:15 DDx abdominal pain: Renal colic, biliary colic, metabolic/electrolyte derangements. GERD, PUD, esophageal spasm, pancreatitis, hepatitis, constipation, colitis, gastroenteritis, cholecystitis, UTI, pyelonephritis, ileus, SBO, perforation, hernia, appendicitis, diverticulitis, mesenteric ischemia. msk strain, mesenteric adenitis, psoas abscess. vitals reviewed, mildly hypertensive. likely pain colicky, diffuse abdominal tenderness, guarding. stat cxr to eval for perf, no acute pathology, no acute chest pathology labs and lytes with +leukocytosis 15K lytes are normal K hemolyzed, will recheck and is normal 3.6. Cr is normal LFTs and lipase normal, lactic acidosis ?mesenteric ischemia vs Crohn's colitis vs infection/inflammation, gastroenteritis. CT a/p to eval for renal/splenic dissection, obstruction, infection, inflammation, mass 12/08/19 21:00 morphine/tylenol and IVF reassessed, improved. 12/08/19 22:50 CT results: no acute intra abdominal pathology. prior fluid/intussusception and inflammation, have all resolved. there is mild lactic acidosis 2.3, pt has received IVF, has clinically improved, abdomen is soft and nontender now no peritoneal findings. no systemic sx. no fever will recheck lactic if elevated, admit for workup cannot get CTA study, given had CT a/p with venous contrast study - CT study did not reveal acute findings s/o pending reeval, lactic, ultimate dispo 12/09/19 17:00 12/09/19 17:04 Heart Score/ECG Review #1 ECG reviewed & interpreted by me at: 21:20 General ECG Interpretation: Sinus Rhythm, Normal Rate 12/08/19 21:50 EKG normal sinus rhythm 66 bpm, no interval abnormalities, narrow QRS, ST and T wave segments and morphology normal Discharge - Discharge Information Problems reviewed: Yes Clinical Impression/Diagnosis: Lactic acidosis Abdominal pain Qualifiers: Abdominal location: generalized Qualified Code(s): R10.84 - Generalized abdominal pain Condition: Guarded - Admission Yes - Follow up/Referral - Patient Discharge Instructions - Post Discharge Activity
[2019-12-08] MEDS ORDERED: ONDANSETRON 4 MG/2 ML VIAL IVPUSH ONE (18:26)
[2019-12-08] MEDS ORDERED: ACETAMINOPHEN 1000 MG/100 ML VIAL (NON FORMULARY) IVPB ONE (18:26)
[2019-12-08] MEDS ORDERED: LACTATED RINGERS SOLUTION 1000 ML INFUS.BAG IV ONE ×2 (18:26→23:15)
[2019-12-08] MEDS ORDERED: morphine CARPU-JECT 4 MG/1 ML DISP.SYRIN IVPUSH ONE (18:50)
[2019-12-08 18:52] LABS: BASO % 0.3 % (0-2.0); HEMATOCRIT 48.2 % (35.4-49); HEMOGLOBIN 16.2 GM/dL (11.7-16.9); LYMPH % 5.1 % (8-40); MCH 31.7 pg (25.7-33.7); MCHC 33.6 g/dl (32.0-35.9); MEAN CELL VOLUME 94.3 fl (80-96); MEAN PLT VOLUME 8.6 fl (7.5-11.1); MONO % 4.1 % (3.8-10.2); NEUT % 90.5 % (42.8-82.8); PLATELET COUNT 306 K/MM3 (134-434); RBC 5.11 M/mm3 (4.00-5.60); RDW 14.2 % (11.9-15.9); WHITE BLOOD COUNT 15.4 K/mm3 (4.0-10.0)
[2019-12-08 19:02] LABS: INR 1.08 (0.83-1.09); PROTHROMBIN TIME (PATIENT) 12.7 SEC (9.7-13.0)
[2019-12-08 19:04] LABS: ACTIVATED PTT 27.4 SECONDS (25.2-36.5)
[2019-12-08 19:14] LABS: ALK PHOS 71 U/L (45-117); BILIRUBIN,TOTAL 0.8 mg/dL (0.2-1); BLOOD UREA NITROGEN 17.6 mg/dL (7-18); CALCIUM 9.3 mg/dL (8.5-10.1); CHLORIDE 103 mmol/L (98-107); CO2 23 mmol/L (21-32); CREATININE 1.1 mg/dL (0.55-1.3); GLUCOSE,RANDOM 137 mg/dL (74-106); SODIUM 131 mmol/L (136-145); TOT PROT 8.3 g/dl (6.4-8.2)
[2019-12-08 19:20] LABS: ANION GAP 6 MMOL/L (8-16); SGOT/AST 88 U/L (15-37); SGPT/ALT 28 U/L (13-61)
[2019-12-08 19:21] LABS: POTASSIUM > 10.0 mmol/L (3.5-5.1)
[2019-12-08 20:54] LABS: LIPASE 148 U/L (73-393); POTASSIUM 3.6 mmol/L (3.5-5.1)
--- NOTE | 2019-12-09 01:50 | PDOC ---
*Physical Exam - Vital Signs Last Vital Signs Temp Pulse Resp BP Pulse Ox 97.3 F L 88 18 133/82 98 12/08/19 17:13 12/08/19 22:57 12/08/19 22:57 12/08/19 22:57 12/08/19 22:57 ED Treatment Course - LABORATORY CBC & Chemistry Diagram: 12/09/19 09:27 12/09/19 09:27 - ADDITIONAL ORDERS Additional order review: Laboratory Results 12/09/19 12/08/19 12/08/19 00:34 21:45 20:10 PT with INR INR PTT (Actin FS) Sodium Potassium 3.6 Chloride Carbon Dioxide Anion Gap BUN Creatinine Est GFR (CKD-EPI)AfAm Est GFR (CKD-EPI)NonAf Random Glucose Lactic Acid 3.8 H* 2.3 H* Calcium Total Bilirubin AST ALT Alkaline Phosphatase Creatine Kinase 53 Troponin I < 0.02 Total Protein Albumin Lipase 148 Blood Type Antibody Screen 12/08/19 12/08/19 12/08/19 18:20 18:20 18:20 PT with INR 12.70 INR 1.08 PTT (Actin FS) 27.4 Sodium 131 L Potassium > 10.0 H* Chloride 103 Carbon Dioxide 23 Anion Gap 6 L BUN 17.6 Creatinine 1.1 Est GFR (CKD-EPI)AfAm 82.95 Est GFR (CKD-EPI)NonAf 71.57 Random Glucose 137 H Lactic Acid Calcium 9.3 Total Bilirubin 0.8 AST 88 H ALT 28 Alkaline Phosphatase 71 Creatine Kinase Troponin I Total Protein 8.3 H Albumin 4.0 Lipase Blood Type A POSITIVE Antibody Screen Negative 12/08/19 18:20 RBC 5.11 MCV 94.3 MCHC 33.6 RDW 14.2 MPV 8.6 D Neutrophils % 90.5 H Lymphocytes % 5.1 L D Monocytes % 4.1 Eosinophils % 0.0 D Basophils % 0.3 - RADIOLOGY Radiology Studies Ordered: Category Date Time Status ABDOMEN & PELVIS CT WITH CONTR [CT] Stat CT Scan 12/08/19 20:08 Completed - Medications Given in the ED: ED Medications Discontinued Medications Generic Name Dose Route Start Last Admin Trade Name Freq PRN Reason Stop Dose Admin Acetaminophen 1,000 mg 12/08/19 18:26 12/08/19 18:49 Ofirmev Injection - IVPB 12/08/19 18:27 1,000 mg ONCE ONE Administration Lactated Ringer's 1,000 ml 12/08/19 18:26 12/08/19 18:49 Lactated Ringers Solution IV 12/08/19 18:27 1,000 ml ONCE ONE Administration Lactated Ringer's 1,000 ml 12/08/19 23:15 12/08/19 23:29 Lactated Ringers Solution IV 12/08/19 23:16 1,000 ml ONCE ONE Administration Morphine Sulfate 4 mg 12/08/19 18:50 12/08/19 18:55 Morphine Injection - IVPUSH 12/08/19 18:51 4 mg ONCE ONE Administration Ondansetron HCl 4 mg 12/08/19 18:26 12/08/19 18:49 Zofran Injection IVPUSH 12/08/19 18:27 4 mg ONCE ONE Administration Medical Decision Making - Medical Decision Making 12/09/19 01:50 Repeat lactate - 3.8 s/p additional fluids Plan for admission Discharge - Discharge Information Problems reviewed: Yes Clinical Impression/Diagnosis: Lactic acidosis Abdominal pain Qualifiers: Abdominal location: generalized Qualified Code(s): R10.84 - Generalized abdominal pain Condition: Guarded Disposition: HOME - Admission No - Follow up/Referral - Patient Discharge Instructions - Post Discharge Activity
--- NOTE | 2019-12-09 02:28 | PN ---
Teaching Attending Note Name of Resident: Royal Brennan ATTENDING PHYSICIAN STATEMENT I saw and evaluated the patient. I reviewed the resident's note and discussed the case with the resident. I agree with the resident's findings and plan as documented. SUBJECTIVE: Patient is a 64 year old man with a PMH of ?Crohns disease, Hematuria, Pe nicillin allergy, ?Small bowel intussusception, Laparotomy with umblical hernia repair (08/27/19), Colitis and ?CT evidence of Appendicitis (10/02/2019) who presents to the ER with abdominal pain that started after eating eggs, potatoes and coffee this morning. Pain as 8/10, associated with nausea and three episodes of nonbloody, nonbilious vomiting. Pain has been constant and unchanging. He had one bowel movement this morning before breakfast and said it was hard. Says he has been passing gas today. Reports he had a colonoscopy recently and was told he does not have Crohn's disease and his Mesalamine was stopped. Patient reports he was seen here two months ago for left flank pain, noted to have an elevated blood count and was treated with ?Levaquin and Flagyl. Patient denies chest pain, shortness of breath, headache, palpitations, dizziness, fever, chills, diarrhea, dysuria, frequency, urgency, melena, hematochezia or hematuria. Smokes Marijuana on weekends. Former smoker. Denies alcohol, tobacco or illicit drug use. No sick contacts or recent travels. Patient has a family history of lung cancer in his mother. OBJECTIVE: Alert Vital Signs Period Temp Pulse Resp BP Sys/Hurt Pulse Ox Last 24 Hr 97.3 F 88-94 18-18 133-143/73-82 98-100 HEENT: No Jaundice, eye redness or discharge, PERRLA, EOMI. Normocephalic, atraumatic. External ears are normal and hearing is grossly intact. No nasal discharge. Neck: Supple, nontender. No palpable adenopathy or thyromegaly. No JVD Chest: Good effort. Clear to auscultation and percussion. Heart: Regular. No S3, rub or murmur Abdomen: Not distended, soft, nontender and no HSM. No rebound or guarding. Normal bowel sounds. Ext: Peripheral pulses intact. No leg edema. Skin: Warm and dry. No petechiae, rash or ecchymosis. Neuro: Alert. Oriented x3. CN 2-12 grossly intact. Sensation grossly intact in all four extremities and DTR are symmetric. Psych: Appropriate mood and affect. Good insight. Home Medications Medication Instructions Recorded Balsalazide Disodium [Colazal (Nf) 4 cap PO BID 08/28/19 -] Docusate Sodium [Colace -] 100 mg PO BID PRN #10 capsule 10/04/19 Levofloxacin [Levaquin] 500 mg PO DAILY #2 tablet 10/04/19 metroNIDAZOLE [Flagyl -] 500 mg PO TID #9 tablet 10/04/19 Abnormal Lab Results 12/08/19 12/08/19 12/08/19 18:20 18: 21:45 WBC 15.4 H Absolute Neuts (auto) 14.0 H Neutrophils % 90.5 H Lymphocytes % 5.1 L D Sodium 131 L Potassium > 10.0 H* Anion Gap 6 L Random Glucose 137 H Lactic Acid 2.3 H* AST 88 H Total Protein 8.3 H 12/09/19 00:34 WBC Absolute Neuts (auto) Neutrophils % Lymphocytes % Sodium Potassium Anion Gap Random Glucose Lactic Acid 3.8 H* AST Total Protein ASSESSMENT AND PLAN: 1. Abdominal pain/Rule out sepsis or mesenteric ischemia - Etiology of abdominal pain is unclear, but it resolved while in the ER and his physical examination is now unremarkable. Will get stat urinalysis, blood cultures, repeat CBC and lactic acid and treat with IV NS. ER staff prescribed Tylenol, Zofran, IV LR and IV Morphine for the patient. Will withhold antibiotics pending results of further workup. No acute abnormality on CXR. CT scan of abdomen/pelvis with IV contrast didnot show any acute abnormality. On 10/02/2019 CT scan of abdomen/pelvis with IV and PO contrast showed colitis and possible appendicitis. Viral testing for COVID-19 ordered and patient placed on airborne, droplet and contact isolation. EKG shows NSR at 66/minute and QTc 425 with no significant acute ischemic ST-T wave changes. Initial troponin is negative. Will continue IV NS, trend lactic acid and consult ID/GI/Surgery. 2. DVT prophylaxis - Lovenox 40 mg SQ q 24 hours. 3. Advance directives - Full code
[2019-12-09] MEDS ORDERED: LACTATED RINGERS SOLUTION 1000 ML INFUS.BAG IV ONE (02:48)
--- NOTE | 2019-12-09 06:21 | HP ---
CHIEF COMPLAINT: Abdominal pain PCP: HISTORY OF PRESENT ILLNESS: 64 yo M w/ PMHx of ?Crohns disease (recent colonoscopy w/ Dr. Chun say negative, FU), ?Small bowel intussusception, Laparotomy with umblical hernia repair (08/27/19), Colitis and ?CT evidence of Appendicitis (10/02/2019) presents to [facility] ER w/ abdominal pain that started 1 day prior to admission after eating eggs, potatoes and coffee. Pain rated as 8/10, non-radiating, constant in nature, associated with nausea and x3 NBNB vomiting. Endorses 1BM prior to breakfast, hard in consistency. States no longer taking his Colazal after colonoscopy above At time of examination pain is 0/10. Patient was seen here two months ago for left flank pain, noted to have an elevated blood count and was treated with Levaquin and Flagyl and DC'd on the same. Currently ptn denies F/C, HANSEN, CP, SoB, N/V/D, abdominal pain (following morphine in ED) ER course was notable for: (1)EKG: NSR at 66/minute and QTc 425 with no significant acute ischemic ST-T wave changes (2)CT Abd/Pelv: No acute intra abdominal pathology. prior fluid/intussusception and inflammation, have all resolved Recent Travel: PAST MEDICAL HISTORY: As above PAST SURGICAL HISTORY: As above Social History: Smoking: None Alcohol: 4 beer/week Drugs: Marijuana 4x/week Lives Alone Family History: Mother: Lung CA Allergies Penicillins Allergy (Mild, Verified 09/06/19 11:05) HOME MEDICATIONS: Home Medications Medication Instructions Recorded Balsalazide Disodium [Colazal (Nf) 4 cap PO BID 08/28/19 -] Docusate Sodium [Colace -] 100 mg PO BID PRN #10 capsule 10/04/19 Levofloxacin [Levaquin] 500 mg PO DAILY #2 tablet 10/04/19 metroNIDAZOLE [Flagyl -] 500 mg PO TID #9 tablet 10/04/19 REVIEW OF SYSTEMS CONSTITUTIONAL: Absent: fever, chills, diaphoresis, generalized weakness, malaise, loss of appetite, weight change HEENT: Absent: rhinorrhea, nasal congestion, throat pain, throat swelling, difficulty swallowing, mouth swelling, ear pain, eye pain, visual changes CARDIOVASCULAR: Absent: chest pain, syncope, palpitations, irregular heart rate, lightheadedness, peripheral edema RESPIRATORY: Absent: cough, shortness of breath, dyspnea with exertion, orthopnea, wheezing, stridor, hemoptysis GASTROINTESTINAL: Absent: abdominal pain, abdominal distension, nausea, vomiting, diarrhea, constipation, melena, hematochezia GENITOURINARY: Absent: dysuria, frequency, urgency, hesitancy, hematuria, flank pain, genital pain MUSCULOSKELETAL: Absent: myalgia, arthralgia, joint swelling, back pain, neck pain SKIN: Absent: rash, itching, pallor HEMATOLOGIC/IMMUNOLOGIC: Absent: easy bleeding, easy bruising, lymphadenopathy, frequent infections ENDOCRINE: Absent: unexplained weight gain, unexplained weight loss, heat intolerance, cold intolerance NEUROLOGIC: Absent: headache, focal weakness or paresthesias, dizziness, unsteady gait, seizure, mental status changes, bladder or bowel incontinence PSYCHIATRIC: Absent: anxiety, depression, suicidal or homicidal ideation, hallucinations. PHYSICAL EXAMINATION Vital Signs - 24 hr 12/08/19 12/08/19 12/09/19 17:13 22:57 03:18 Temperature 97.3 F L 99.1 F Pulse Rate 94 H Pulse Rate [ 88 104 H Right] Respiratory 18 18 18 Rate Blood Pressure 143/73 Blood Pressure 133/82 110/76 [Right Arm] O2 Sat by Pulse 100 98 Oximetry (%) GENERAL: Awake, alert, and fully oriented, in no acute distress. HEAD: Normal with no signs of trauma. EYES: Pupils equal, round and reactive to light, extraocular movements intact, sclera anicteric, conjunctiva clear. No lid lag. EARS, NOSE, THROAT: Ears normal, nares patent, whitish plaques (possibly poor oral hygeine) Moist mucous membranes. NECK: Normal range of motion, supple without lymphadenopathy, JVD, or masses. LUNGS: Breath sounds equal, clear to auscultation bilaterally. No wheezes, and no crackles. No accessory muscle use. HEART: Regular rate and rhythm, normal S1 and S2 without murmur, rub or gallop. ABDOMEN: Soft, nontender, not distended, normoactive bowel sounds, no guarding, no rebound MUSCULOSKELETAL: Normal range of motion at all joints. No bony deformities or tenderness. No CVA tenderness. UPPER EXTREMITIES: 2+ pulses, warm, well-perfused. No cyanosis. No clubbing. No peripheral edema. LOWER EXTREMITIES: 2+ pulses, warm, well-perfused. No calf tenderness. No peripheral edema. NEUROLOGICAL: Normal speech. Normal gait. PSYCHIATRIC: Cooperative. Good eye contact. Appropriate mood and affect. SKIN: Ex-Lap scar, warm, dry, normal turgor, no rashes or lesions noted, normal capillary refill. Laboratory Results - last 24 hr 12/08/19 12/08/19 12/08/19 18:20 18:20 18:20 WBC 15.4 H RBC 5.11 Hgb 16.2 Hct 48.2 D MCV 94.3 MCH 31.7 MCHC 33.6 RDW 14.2 Plt Count 306 D MPV 8.6 D Absolute Neuts (auto) 14.0 H Neutrophils % 90.5 H Lymphocytes % 5.1 L D Monocytes % 4.1 Eosinophils % 0.0 D Basophils % 0.3 Nucleated RBC % 0 PT with INR 12.70 INR 1.08 PTT (Actin FS) 27.4 Sodium 131 L Potassium > 10.0 H* Chloride 103 Carbon Dioxide 23 Anion Gap 6 L BUN 17.6 Creatinine 1.1 Est GFR (CKD-EPI)AfAm 82.95 Est GFR (CKD-EPI)NonAf 71.57 Random Glucose 137 H Lactic Acid Calcium 9.3 Total Bilirubin 0.8 AST 88 H ALT 28 Alkaline Phosphatase 71 Creatine Kinase Troponin I Total Protein 8.3 H Albumin 4.0 Lipase Blood Type Antibody Screen 12/08/19 12/08/19 12/08/19 18:20 20:10 21:45 WBC RBC Hgb Hct MCV MCH MCHC RDW Plt Count MPV Absolute Neuts (auto) Neutrophils % Lymphocytes % Monocytes % Eosinophils % Basophils % Nucleated RBC % PT with INR INR PTT (Actin FS) Sodium Potassium 3.6 Chloride Carbon Dioxide Anion Gap BUN Creatinine Est GFR (CKD-EPI)AfAm Est GFR (CKD-EPI)NonAf Random Glucose Lactic Acid 2.3 H* Calcium Total Bilirubin AST ALT Alkaline Phosphatase Creatine Kinase 53 Troponin I < 0.02 Total Protein Albumin Lipase 148 Blood Type A POSITIVE Antibody Screen Negative 12/09/19 00:34 WBC RBC Hgb Hct MCV MCH MCHC RDW Plt Count MPV Absolute Neuts (auto) Neutrophils % Lymphocytes % Monocytes % Eosinophils % Basophils % Nucleated RBC % PT with INR INR PTT (Actin FS) Sodium Potassium Chloride Carbon Dioxide Anion Gap BUN Creatinine Est GFR (CKD-EPI)AfAm Est GFR (CKD-EPI)NonAf Random Glucose Lactic Acid 3.8 H* Calcium Total Bilirubin AST ALT Alkaline Phosphatase Creatine Kinase Troponin I Total Protein Albumin Lipase Blood Type Antibody Screen ASSESSMENT/PLAN: 64 yo M w/ PMHx of ?Crohns disease (recent colonoscopy w/ Dr. Chun say negative, FU), ?Small bowel intussusception, Laparotomy with umblical hernia repair (08/27/19), Colitis and ?CT evidence of Appendicitis (10/02/2019) presents to [facility] ER w/ abdominal pain that started 1 day prior to admission after eating eggs, potatoes and coffee. Pain rated as 8/10, non-radiating, constant in nature, associated with nausea and x3 NBNB vomiting. Endorses 1BM prior to breakfast, hard in consistency. States no longer taking his Colazal after colonoscopy above At time of examination pain is 0/10. ABDOMINAL PAIN: r/o SEPSIS vs MESENTERIC ISCHEMIA vs REACTIVATION OF CROHNS -Unclear etiology w/ 0/10 pain on exam -No longer taking Colazal -Afebrile w/ WBC: 15.4 -SIRS Criteria Met w/ WBC and Pulse -CT Abd/Pelv: No acute intra abdominal pathology. prior fluid/intussusception and inflammation, have all resolved -FU UA -FU Blood Cx -LA: 2.3 -->3.8 FU Lactic Acid -Bolus 1L NS -Holding abx pending results of workup -GI Consulted TRANSAMINITIS -AST/ALT: 88/28 -Likely 2/2 sepsis -Trend LFTs to follow for resolution HYPONATREMIA -Na 131 -Recent episodes of vomitting -Follow Na -Add antiemetics as needed to prevent N/V PPx -DVT: Heparin 5000 TID FEN -No standing fluids -CMP -NPO DISPO -Continue to monitor on med/surg Family Medical History Family History: As Documented Visit type - Emergency Visit Emergency Visit: Yes ED Registration Date: 12/09/19 Care time: The patient presented to the Emergency Department on the above date and was hospitalized for further evaluation of their emergent condition. - New Patient This patient is new to me today: Yes Date on this admission: 12/10/19 - Critical Care Critical Care patient: No ATTENDING PHYSICIAN STATEMENT I saw and evaluated the patient. I reviewed the resident's note and discussed the case with the resident. I agree with the resident's findings and plan as documented. SUBJECTIVE: OBJECTIVE: ASSESSMENT AND PLAN:
[2019-12-09] MEDS ORDERED: SODIUM CHLORIDE 1,000 ML IV STA (06:51)
--- NOTE | 2019-12-09 07:45 | PN ---
Progress Note, Physician Chief Complaint: Patient seen and examined in bed. Abd pain resolved. Seen by GI, SUrgery, and ID. Lactic acodosis resolved. Leukocytosis resolving. Turnor marker sent and pending. History of Present Illness: 64yo M with no signifcant PMH wo had recent abd surgery (08/27/19 s/p ex lap with reapir of umbulical hernia ) presenting with diffuse abd pain. - Current Medication List Current Medications: Active Medications Heparin Sodium (Porcine) (Heparin -) 5,000 unit SQ TID BLUE Sodium Chloride (Normal Saline -) 1,000 mls @ 1,000 mls/hr IV ASDIR STA Stop: 12/09/19 07:50 - Objective Vital Signs: Vital Signs Temperature 99.1 F 12/09/19 03:18 Pulse Rate 104 H 12/09/19 03:18 Respiratory Rate 18 12/09/19 03:18 Blood Pressure 110/76 12/09/19 03:18 O2 Sat by Pulse Oximetry (%) 98 12/08/19 22:57 Additional Findings/Remarks: GENERAL: The patient is awake, alert, and fully oriented, in no acute distress. HEAD: Normal with no signs of trauma. EYES: PERRL, extraocular movements intact, sclera anicteric, conjunctiva clear. ENT: Ears normal, nares patent, oropharynx clear without exudates, moist mucous membranes. NECK: Trachea midline, full range of motion, supple. B/L submandibular LN - previous CT Neck negative. LUNGS: Breath sounds equal, clear to auscultation bilaterally, no wheezes, no crackles, no accessory muscle use. HEART: Regular rate and rhythm, S1, S2 without murmur, rub or gallop. ABDOMEN: Soft, nontender, nondistended, normoactive bowel sounds, no guarding, no rebound, no hepatosplenomegaly, no masses. EXTREMITIES: 2+ pulses, warm, well-perfused, no edema. NEUROLOGICAL: Cranial nerves II through XII grossly intact. Normal speech, gait not observed. PSYCH: Normal mood, normal affect. SKIN: Warm, dry, normal turgor, no rashes or lesions noted. Labs: CBC, BMP 12/08/19 18:20 12/08/19 20:10 INR, PTT INR 1.08 (0.83-1.09) 12/08/19 18:20 - ....Imaging Cat Scan: Report Reviewed (CT Abd no acute pathology) Problem List - Problems (1) Prophylactic measure Assessment/Plan: FEN Fluids: adequate PO intake Electrolytes: monitor & replete as needed Nutrition: clears diet DVT minimla risk Dispo Maintain as inpatient full code discharge planning Code(s): Z29.9 - ENCOUNTER FOR PROPHYLACTIC MEASURES, UNSPECIFIED (2) Suspected COVID-19 virus infection Assessment/Plan: COVID Suspicion low On RA strict airborne/droplet precautions until resulted Code(s): Z20.828 - CONTACT W AND EXPOSURE TO OTH VIRAL COMMUNICABLE DISEASES (3) Abdominal pain Assessment/Plan: resolved seen by MARILEE will ID w/u for hypercoaguable state tumor markers CEA, Ca19-9 PSA, ESR, CRP, S. Cerviscea IgG IgA, P ANCA sent and pending. Can f/u as outpt with Dr Amezquita if abnml EGD as an outpatient with Dr Chun will need close follow up with Dr Chun as an outpatient MR enterography and video capsule as an outpatient Code(s): R10.9 - UNSPECIFIED ABDOMINAL PAIN Qualifiers: Abdominal location: generalized Qualified Code(s): R10.84 - Generalized abdominal pain (4) Lactic acid acidosis Assessment/Plan: resolved Code(s): E87.2 - ACIDOSIS Visit type - Emergency Visit Emergency Visit: Yes ED Registration Date: 12/09/19 Care time: The patient presented to the Emergency Department on the above date and was hospitalized for further evaluation of their emergent condition. - New Patient This patient is new to me today: Yes Date on this admission: 12/10/19 - Critical Care Critical Care patient: No - Discharge Referral Referred to [facility] Med P.C.: No
[2019-12-09] MEDS ORDERED: DOCUSATE SODIUM 100 MG CAPSULE (FP) PO PRN (07:54)
[2019-12-09 09:07] LABS: EPI CELLS 15 /uL (0-25.1); HYALINE CASTS 2 /uL (0-3.1); URINE APPEARANCE CLEAR; URINE BACTERIA 13 /uL (0-1359); URINE BILIRUBIN NEGATIVE (NEGATIVE); URINE COLOR YELLOW; URINE GLUCOSE (UA) NEGATIVE (NEGATIVE); URINE KETONE TRACE (NEGATIVE); URINE LEUK ESTERASE 1+ (NEGATIVE); URINE NITRITE NEGATIVE (NEGATIVE); URINE PROTEIN TRACE (NEGATIVE); URINE UROBILINOGEN 0.2 mg/dL (0.2-1.0); URINE WBC 22 /uL (0-25.8)
[2019-12-09 10:10] LABS: BASO % 0.1 % (0-2.0); EOS % 0.1 % (0-4.5); HEMATOCRIT 39.7 % (35.4-49); HEMOGLOBIN 13.3 GM/dL (11.7-16.9); LYMPH % 10.4 % (8-40); MCH 30.8 pg (25.7-33.7); MCHC 33.4 g/dl (32.0-35.9); MEAN CELL VOLUME 92.2 fl (80-96); MEAN PLT VOLUME 7.4 fl (7.5-11.1); MONO % 8.8 % (3.8-10.2); NEUT % 80.6 % (42.8-82.8); PLATELET COUNT 260 K/MM3 (134-434); RBC 4.31 M/mm3 (4.00-5.60); RDW 13.4 % (11.9-15.9); WHITE BLOOD COUNT 17.4 K/mm3 (4.0-10.0)
[2019-12-09 10:36] LABS: ALBUMIN 3.3 g/dl (3.4-5.0); BILIRUBIN,TOTAL 0.7 mg/dL (0.2-1); BLOOD UREA NITROGEN 14.5 mg/dL (7-18); CALCIUM 8.4 mg/dL (8.5-10.1); CREATININE 0.8 mg/dL (0.55-1.3); MAGNESIUM 1.7 mg/dL (1.8-2.4); PHOSPHOROUS 2.6 mg/dL (2.5-4.9); POTASSIUM 3.7 mmol/L (3.5-5.1)
[2019-12-09 10:37] LABS: TOT PROT 5.9 g/dl (6.4-8.2)
--- NOTE | 2019-12-09 10:48 | CON.GI ---
Consult Consult Specialty:: coverage for Dr Estrada - History of Present Illness History of Present Illness: 64 y/o with PMH of small bowel intussuception s/p exploratory laparotomy bu Dr Baumann( no pathology noted), ? Crohns disease, s/p recent colonoscopy by Dr Chun( reported to be normal , report not available for review was doing well until 1 day prior to admission when he developed abdominal pain 10/10, nausea and vomiting associated with elevated lactic acid and hyponatremia. CT angio done no evidence of mesenteric ischemia nor SBO nor intussuception This morning feels better. No abdominal pain no nausea and vomiting. - Past Medical History Gastrointestinal: Yes: Inflamatory Bowel Disease - Smoking History Smoking history: Former smoker Have you smoked in the past 12 months: No Aproximately how many cigarettes per day: 0 Home Medications - Allergies Allergies/Adverse Reactions: Allergies Allergy/AdvReac Type Severity Reaction Status Date / Time Penicillins Allergy Mild Verified 09/06/19 11:05 - Home Medications Home Medications: Ambulatory Orders Balsalazide Disodium [Colazal (Nf) -] 4 cap PO BID 08/28/19 Docusate Sodium [Colace -] 100 mg PO BID PRN #10 capsule 10/04/19 Levofloxacin [Levaquin] 500 mg PO DAILY #2 tablet 10/04/19 metroNIDAZOLE [Flagyl -] 500 mg PO TID #9 tablet 10/04/19 Physical Exam-GI Vital Signs: Vital Signs Temperature 99.1 F 12/09/19 03:18 Pulse Rate 103 H 12/09/19 07:15 Respiratory Rate 16 12/09/19 07:15 Blood Pressure 123/72 12/09/19 07:15 O2 Sat by Pulse Oximetry (%) 97 12/09/19 07:15 Constitutional: Yes: Well Nourished Eyes: Yes: Conjunctiva Clear HENT: Yes: Atraumatic Neck: Yes: Supple Cardiovascular: Yes: Regular Rate and Rhythm Respiratory: Yes: CTA Bilaterally ...Palpate: Yes: Soft. No: Firm/Rigid, Guarding, Hepatomegaly, Mass, Pulsatile Mass, Splenomegaly, Tenderness Labs: CBC, BMP 12/09/19 09:27 12/09/19 09:27 INR, PTT INR 1.08 (0.83-1.09) 12/08/19 18:20 Problem List - Problems (1) Abdominal pain Assessment/Plan: resolved, intermittent severe nature associated with lactic acidosis is a concern r/o intussuception, malrotation,adhesions R> w/u for hypercoaguable state tumor markers CEA, Ca19-9 PSA ESR, CRP S. Cerviscea IgG IgA, P ANCA EGD even as an outpatient with Dr Chun will need close follow up with Dr Chun as an outpatient MR enterography and video capsule as an outpatient Code(s): R10.9 - UNSPECIFIED ABDOMINAL PAIN Qualifiers: Abdominal location: generalized Qualified Code(s): R10.84 - Generalized abdominal pain
[2019-12-09 10:49] LABS: URINE CRYSTALS NON SEEN /hpf; URINE RBC 389.4 /uL (0-23.9)
[2019-12-09] MEDS ORDERED: HEPARIN NA (PORCINE) 5,000 UNITS/ML 1ML VIAL ONE (14:37)
[2019-12-09] MEDS: HEPARIN NA (PORCINE) 5,000 UNITS/ML 1ML VIAL SQ SCH ×2 (14:52→21:21)
--- NOTE | 2019-12-09 15:01 | CON.ID ---
Consult - History of Present Illness History of Present Illness: 64 y.o. male with PMH of ? Crohn's disease diagnosed 20 yrs ago (reportedly recent colonoscopy without findings), s/p ex-laparotomy and hernia repair with out finding of SB Intussuception as suspected presents with c/o severe abd pain and multiple episodes of vomiting after eating yesterday morning. Pt had a BM and is passing gas. Denies fever/chills,cough/SOB, urinary f/u/d, and has no other complaints. In the ER noted to have an elevated wbc and lactic acid. CT A/P is without any acute findings. Currently he is alert, stating he feels better, and denies abd pain or recent vomiting. While his lactic acid level has come down to normal, his wbc count has increased since yesterday. - History Source History Provided By: Patient - Past Medical History Gastrointestinal: Yes: Inflamatory Bowel Disease - Past Surgical History Past Surgical History: Yes: Hernia Repair Additional Surgical History: Ex-laparotomy - Smoking History Smoking history: Former smoker Have you smoked in the past 12 months: No Aproximately how many cigarettes per day: 0 - Social History History of Recent Travel: No Home Medications - Allergies Allergies/Adverse Reactions: Allergies Allergy/AdvReac Type Severity Reaction Status Date / Time Penicillins Allergy Mild Verified 09/06/19 11:05 - Home Medications Home Medications: Ambulatory Orders Balsalazide Disodium [Colazal (Nf) -] 4 cap PO BID 08/28/19 Docusate Sodium [Colace -] 100 mg PO BID PRN #10 capsule 10/04/19 Levofloxacin [Levaquin] 500 mg PO DAILY #2 tablet 10/04/19 metroNIDAZOLE [Flagyl -] 500 mg PO TID #9 tablet 10/04/19 Review of Systems - Review of Systems Constitutional: reports: No Symptoms Eyes: reports: No Symptoms HENT: reports: No Symptoms Neck: reports: No Symptoms Cardiovascular: reports: No Symptoms Respiratory: reports: No Symptoms Gastrointestinal: reports: No Symptoms Genitourinary: reports: No Symptoms Musculoskeletal: reports: No Symptoms Integumentary: reports: No Symptoms Neurological: reports: No Symptoms Endocrine: reports: No Symptoms Hematology/Lymphatic: reports: No Symptoms Psychiatric: reports: No Symptoms Pain Intensity: 0 Physical Exam Vital Signs: Vital Signs Temperature 98.5 F 12/09/19 13:44 Pulse Rate 94 H 12/09/19 13:44 Respiratory Rate 16 12/09/19 07:15 Blood Pressure 115/75 12/09/19 13:44 O2 Sat by Pulse Oximetry (%) 97 12/09/19 13:44 Constitutional: Yes: No Distress, Calm Eyes: Yes: Conjunctiva Clear HENT: Yes: Atraumatic Neck: Yes: Supple, Trachea Midline Cardiovascular: Yes: Regular Rate and Rhythm Respiratory: Yes: CTA Bilaterally Gastrointestinal: Yes: Normal Bowel Sounds, Soft Renal/: Yes: WNL Musculoskeletal: Yes: WNL Extremities: Yes: WNL Edema: No Integumentary: Yes: WNL Wound/Incision: Yes: Other (abd scar healed) Neurological: Yes: Alert, Oriented Psychiatric: Yes: Alert Labs: CBC, BMP 12/09/19 09:27 12/09/19 09:27 Laboratory Tests 12/08/19 12/08/19 12/08/19 18:20 18:20 18:20 WBC 15.4 H RBC 5.11 Hgb 16.2 Hct 48.2 D MCV 94.3 MCH 31.7 MCHC 33.6 RDW 14.2 Plt Count 306 D MPV 8.6 D Absolute Neuts (auto) 14.0 H Neutrophils % 90.5 H Lymphocytes % 5.1 L D Monocytes % 4.1 Eosinophils % 0.0 D Basophils % 0.3 Nucleated RBC % 0 PT with INR 12.70 INR 1.08 PTT (Actin FS) 27.4 Sodium 131 L Potassium > 10.0 H* Chloride 103 Carbon Dioxide 23 Anion Gap 6 L BUN 17.6 Creatinine 1.1 Est GFR (CKD-EPI)AfAm 82.95 Est GFR (CKD-EPI)NonAf 71.57 Random Glucose 137 H Lactic Acid Calcium 9.3 Phosphorus Magnesium Total Bilirubin 0.8 AST 88 H ALT 28 Alkaline Phosphatase 71 Creatine Kinase Troponin I Total Protein 8.3 H Albumin 4.0 Lipase Urine Color Urine Appearance Urine pH Ur Specific [place] Urine Protein Urine Glucose (UA) Urine Ketones Urine Blood Urine Nitrite Urine Bilirubin Urine Urobilinogen Ur Leukocyte Esterase Urine WBC (Auto) Urine RBC (Auto) Urine Casts (Auto) U Epithel Cells (Auto) Urine Crystals (Auto) Urine Bacteria (Auto) Blood Type Antibody Screen 12/08/19 12/08/19 12/08/19 18:20 20:10 21:45 WBC RBC Hgb Hct MCV MCH MCHC RDW Plt Count MPV Absolute Neuts (auto) Neutrophils % Lymphocytes % Monocytes % Eosinophils % Basophils % Nucleated RBC % PT with INR INR PTT (Actin FS) Sodium Potassium 3.6 Chloride Carbon Dioxide Anion Gap BUN Creatinine Est GFR (CKD-EPI)AfAm Est GFR (CKD-EPI)NonAf Random Glucose Lactic Acid 2.3 H* Calcium Phosphorus Magnesium Total Bilirubin AST ALT Alkaline Phosphatase Creatine Kinase 53 Troponin I < 0.02 Total Protein Albumin Lipase 148 Urine Color Urine Appearance Urine pH Ur Specific [place] Urine Protein Urine Glucose (UA) Urine Ketones Urine Blood Urine Nitrite Urine Bilirubin Urine Urobilinogen Ur Leukocyte Esterase Urine WBC (Auto) Urine RBC (Auto) Urine Casts (Auto) U Epithel Cells (Auto) Urine Crystals (Auto) Urine Bacteria (Auto) Blood Type A POSITIVE Antibody Screen Negative 12/09/19 12/09/19 12/09/19 00:34 08:55 09:27 WBC 17.4 H RBC 4.31 Hgb 13.3 Hct 39.7 D MCV 92.2 MCH 30.8 MCHC 33.4 RDW 13.4 Plt Count 260 MPV 7.4 L D Absolute Neuts (auto) 14.0 H Neutrophils % 80.6 Lymphocytes % 10.4 D Monocytes % 8.8 D Eosinophils % 0.1 D Basophils % 0.1 Nucleated RBC % 0 PT with INR INR PTT (Actin FS) Sodium Potassium Chloride Carbon Dioxide Anion Gap BUN Creatinine Est GFR (CKD-EPI)AfAm Est GFR (CKD-EPI)NonAf Random Glucose Lactic Acid 3.8 H* Calcium Phosphorus Magnesium Total Bilirubin AST ALT Alkaline Phosphatase Creatine Kinase Troponin I Total Protein Albumin Lipase Urine Color Yellow Urine Appearance Clear Urine pH 7.0 Ur Specific [place] 1.033 Urine Protein Trace Urine Glucose (UA) Negative Urine Ketones Trace H Urine Blood 3+ H Urine Nitrite Negative Urine Bilirubin Negative Urine Urobilinogen 0.2 Ur Leukocyte Esterase 1+ H Urine WBC (Auto) 22 Urine RBC (Auto) 389.4 Urine Casts (Auto) 2 U Epithel Cells (Auto) 15 Urine Crystals (Auto) Non seen Urine Bacteria (Auto) 13 Blood Type Antibody Screen 12/09/19 12/09/19 09:27 09:27 WBC RBC Hgb Hct MCV MCH MCHC RDW Plt Count MPV Absolute Neuts (auto) Neutrophils % Lymphocytes % Monocytes % Eosinophils % Basophils % Nucleated RBC % PT with INR INR PTT (Actin FS) Sodium 141 Potassium 3.7 Chloride 107 Carbon Dioxide 28 Anion Gap 5 L BUN 14.5 Creatinine 0.8 Est GFR (CKD-EPI)AfAm 110.96 Est GFR (CKD-EPI)NonAf 95.74 Random Glucose 127 H Lactic Acid 1.6 Calcium 8.4 L Phosphorus 2.6 Magnesium 1.7 L Total Bilirubin 0.7 AST 15 ALT 15 Alkaline Phosphatase 59 Creatine Kinase Troponin I Total Protein 5.9 L Albumin 3.3 L Lipase Urine Color Urine Appearance Urine pH Ur Specific [place] Urine Protein Urine Glucose (UA) Urine Ketones Urine Blood Urine Nitrite Urine Bilirubin Urine Urobilinogen Ur Leukocyte Esterase Urine WBC (Auto) Urine RBC (Auto) Urine Casts (Auto) U Epithel Cells (Auto) Urine Crystals (Auto) Urine Bacteria (Auto) Blood Type Antibody Screen Blood cultures negative Imaging - Results Chest X-ray: Report Reviewed Cat Scan: Report Reviewed Problem List - Problems (1) Lactic acid acidosis Code(s): E87.2 - ACIDOSIS (2) Abdominal pain Code(s): R10.9 - UNSPECIFIED ABDOMINAL PAIN Qualifiers: Abdominal location: generalized Qualified Code(s): R10.84 - Generalized abdominal pain (3) Leukocytosis Code(s): D72.829 - ELEVATED WHITE BLOOD CELL COUNT, UNSPECIFIED Assessment/Plan Abd pain/vomiting Leukocytosis Lactic acidosis Hx of Crohn's disease (?) Hx of abd hernia repair -- Abd pain/vomiting resolved , CT A/P negative - ? gastritis/gastroenteritis -- wbc increased. Will continue to hold antibiotics, repeat cbc in a.m. -- lactic acid normalized -- continue monitor vitals - currently stable Will follow up Thank you
[2019-12-09 16:19] VITALS: BMI 25.4
[2019-12-09] MEDS: ACETAMINOPHEN 1000 MG/100 ML VIAL (NON FORMULARY) IVPB PRN (17:05)
--- NOTE | 2019-12-09 17:47 | CONSULT ---
- Consultation REQUESTING PROVIDER: Yashira DEVIL DOG CONSULT REQUEST: We have been asked to surgically evaluate this patient for abdominal pain. Hospitalist:SHARLENE Palumbo HISTORY OF PRESENT ILLNESS: JOELLENP who is a 64y/o male who presented w/nausea and vomiting and abdominal pain of recent onset; pain is crampy and similar to previous presentations; he has a GI specialist that he is seeing. Pain started after eating; he had constipation and is passing flatus. PMHx: Crohns disease though recently not found to be present. PSHx: ex-lap for intussusception and no intussuception found Home Medications Medication Instructions Recorded Balsalazide Disodium [Colazal (Nf) 4 cap PO BID 08/28/19 -] Docusate Sodium [Colace -] 100 mg PO BID PRN #10 capsule 10/04/19 Levofloxacin [Levaquin] 500 mg PO DAILY #2 tablet 10/04/19 metroNIDAZOLE [Flagyl -] 500 mg PO TID #9 tablet 10/04/19 Allergies Allergy/AdvReac Type Severity Reaction Status Date / Time Penicillins Allergy Mild Verified 09/06/19 11:05 REVIEW OF SYSTEMS: CONSTITUTIONAL: Absent: fever, chills, diaphoresis, generalized weakness, malaise, loss of appetite, weight change CARDIOVASCULAR: Absent: chest pain, syncope, palpitations, irregular heart rate, lightheadedness, peripheral edema RESPIRATORY: Absent: cough, shortness of breath, dyspnea with exertion, wheezing, stridor, hemoptysis GASTROINTESTINAL: Present: abdominal pain, abdominal distension, nausea, vomiting, Absent: diarrhea, constipation, Absent: melena, hematochezia GENITOURINARY: Absent: dysuria, frequency, urgency, hesitancy, hematuria, flank pain, genital pain MUSCULOSKELETAL: Absent: myalgia, arthralgia, joint swelling, back pain, neck pain SKIN: Absent: rash, itching, pallor HEMATOLOGIC/IMMUNOLOGIC: Absent: easy bleeding, easy bruising, lymphadenopathy NEUROLOGIC: Absent: headache, focal weakness, paresthesias, dizziness, unsteady gait, s eizure, mental status changes, bladder or bowel incontinence PSYCHIATRIC: Absent: anxiety, depression, suicidal or homicidal ideation, hallucinations. PHYSICAL EXAM: GENERAL: Awake, alert, and fully oriented, in no acute distress. HEAD: Normal with no signs of trauma. EYES: sclera anicteric, conjunctiva clear. NECK: Normal ROM, supple without lymphadenopathy, JVD, or masses. ABDOMEN: Soft, minimal tendermess to palpation, not distended, normoactive bowel sounds, no guarding, no rebound, no masses. No organomegaly. No hernias; incision well healed; o/w negative. MUSCULOSKELETAL: Normal ROM at all joints. No bony deformities or tenderness. No CVA tenderness. UPPER EXTREMITIES: 2+ pulses, warm, well-perfused. No cyanosis. Cap refill <2 seconds. No peripheral edema. LOWER EXTREMITIES: 2+ pulses, warm, well-perfused. No calf tenderness. No peripheral edema. NEUROLOGICAL: Normal speech, gait not observed. PSYCH: Cooperative. Good eye contact. Appropriate mood and affect. SKIN: Warm, dry, normal turgor, no rashes or lesions noted. Vital Signs Temperature 98.3 F 12/09/19 16:02 Pulse Rate 88 12/09/19 16:02 Respiratory Rate 20 12/09/19 16:02 Blood Pressure 143/85 12/09/19 16:02 O2 Sat by Pulse Oximetry (%) 98 12/09/19 16:02 Lab Results WBC 17.4 K/mm3 (4.0-10.0) H 12/09/19 09:27 RBC 4.31 M/mm3 (4.00-5.60) 12/09/19 09:27 Hgb 13.3 GM/dL (11.7-16.9) 12/09/19 09:27 Hct 39.7 % (35.4-49) D 12/09/19 09: MCV 92.2 fl (80-96) 12/09/19 09:27 MCHC 33.4 g/dl (32.0-35.9) 12/09/19 09: RDW 13.4 % (11.9-15.9) 12/09/19 09:27 Plt Count 260 K/MM3 (134-434) 12/09/19 09:27 INR 1.08 (0.83-1.09) 12/08/19 18:20 Sodium 141 mmol/L (136-145) 12/09/19 09:27 Potassium 3.7 mmol/L (3.5-5.1) 12/09/19 09:27 Chloride 107 mmol/L (98-107) 12/09/19 09:27 Carbon Dioxide 28 mmol/L (21-32) 12/09/19 09:27 Anion Gap 5 MMOL/L (8-16) L 12/09/19 09:27 BUN 14.5 mg/dL (7-18) 12/09/19 09:27 Creatinine 0.8 mg/dL (0.55-1.3) 12/09/19 09:27 Random Glucose 127 mg/dL (74-106) H 12/09/19 09:27 Calcium 8.4 mg/dL (8.5-10.1) L 12/09/19 09:27 Blood Type A POSITIVE 12/08/19 18:20 Antibody Screen Negative 12/08/19 18:20 Imaging w/u to date reviewed; no acute pathology identified IMP: abdominal pain; no evidence of an acute surgical abdomen PLAN: NPO/IVF/observe Mert Herrera MD FACS
[2019-12-10] MEDS: ACETAMINOPHEN 1000 MG/100 ML VIAL (NON FORMULARY) IVPB PRN (04:18)
--- NOTE | 2019-12-10 07:01 | EKG ---
Test Reason : Blood Pressure : / mmHG Vent. Rate : 066 BPM Atrial Rate : 066 BPM P-R Int : 154 ms QRS Dur : 074 ms QT Int : 406 ms P-R-T Axes : 047 027 029 degrees QTc Int : 425 ms SINUS RHYTHM WITH MARKED SINUS ARRHYTHMIA OTHERWISE NORMAL ECG WHEN COMPARED WITH ECG OF 02-OCT-2019 10:21, NO SIGNIFICANT CHANGE WAS FOUND Confirmed by BEN RECINOS MD ([id number]) on 12/10/2019 7:01:06 AM Referred By: Confirmed By:BEN RECINOS MD
[2019-12-10] MEDS: HEPARIN NA (PORCINE) 5,000 UNITS/ML 1ML VIAL SQ SCH ×2 (07:26→14:00)
[2019-12-10 08:02] LABS: BASO % 0.4 % (0-2.0); EOS % 0.8 % (0-4.5); HEMATOCRIT 42.9 % (35.4-49); HEMOGLOBIN 14.4 GM/dL (11.7-16.9); LYMPH % 16.6 % (8-40); MCH 31.3 pg (25.7-33.7); MCHC 33.6 g/dl (32.0-35.9); MEAN CELL VOLUME 93.3 fl (80-96); MEAN PLT VOLUME 7.6 fl (7.5-11.1); MONO % 9.2 % (3.8-10.2); PLATELET COUNT 277 K/MM3 (134-434); RDW 13.5 % (11.9-15.9); WHITE BLOOD COUNT 12.2 K/mm3 (4.0-10.0)
[2019-12-10 08:05] LABS: INR 1.04 (0.83-1.09); PROTHROMBIN TIME (PATIENT) 12.3 SEC (9.7-13.0)
--- NOTE | 2019-12-10 08:07 | PN ---
Progress Note, Physician - Current Medication List Current Medications: Active Medications Acetaminophen (Ofirmev Injection -) 1,000 mg IVPB Q6H PRN PRN Reason: MODERATE PAIN Last Admin: 12/10/19 04:18 Dose: 1,000 mg Documented by: Docusate Sodium (Colace -) 100 mg PO BID PRN PRN Reason: CONSTIPATION Heparin Sodium (Porcine) (Heparin -) 5,000 unit SQ TID BLUE Last Admin: 12/10/19 07:26 Dose: 5,000 unit Documented by: - Objective Vital Signs: Vital Signs Temperature 98.3 F 12/10/19 06:00 Pulse Rate 71 12/10/19 06:00 Respiratory Rate 18 12/10/19 06:00 Blood Pressure 121/65 12/10/19 06:00 O2 Sat by Pulse Oximetry (%) 94 L 12/10/19 06:00 Labs: INR, PTT INR 1.04 (0.83-1.09) 12/10/19 07:05 Problem List - Problems (1) Prophylactic measure Code(s): Z29.9 - ENCOUNTER FOR PROPHYLACTIC MEASURES, UNSPECIFIED (2) Suspected COVID-19 virus infection Code(s): Z20.828 - CONTACT W AND EXPOSURE TO OTH VIRAL COMMUNICABLE DISEASES (3) Abdominal pain Code(s): R10.9 - UNSPECIFIED ABDOMINAL PAIN Qualifiers: Abdominal location: generalized Qualified Code(s): R10.84 - Generalized abdominal pain (4) Lactic acid acidosis Code(s): E87.2 - ACIDOSIS
[2019-12-10 08:34] LABS: ALBUMIN 3.6 g/dl (3.4-5.0); BILIRUBIN,TOTAL 0.9 mg/dL (0.2-1); BLOOD UREA NITROGEN 12.1 mg/dL (7-18); CALCIUM 8.6 mg/dL (8.5-10.1); CREATININE 0.8 mg/dL (0.55-1.3); MAGNESIUM 1.8 mg/dL (1.8-2.4); POTASSIUM 3.6 mmol/L (3.5-5.1); TOT PROT 6.3 g/dl (6.4-8.2)
--- NOTE | 2019-12-10 09:49 | PN ---
Progress Note (short form) - Note Progress Note: Attending Surgeon Seen in f/u; tolerating clear liquids; c/o neck sellimg; he had this 07/2019; neck CT was negative. Passing gas. VSS AF abdo-soft and non tender; o/w negative. neck-b/l submandibular adenopathy IMP: no evidence of surgical pathology at this time PLAN: Reconsult as needed. Mert Herrera MD FACS
--- NOTE | 2019-12-10 12:32 | PN.GI ---
GI Progress Note Subjective: abdominal pain resolved, etiology unclear, nelarged submandibular nodes - Objective Vital Signs: Vital Signs Temperature 98.7 F 12/10/19 10:31 Pulse Rate 76 12/10/19 10:31 Respiratory Rate 18 12/10/19 10:31 Blood Pressure 131/88 12/10/19 10:31 O2 Sat by Pulse Oximetry (%) 98 12/10/19 10:31 Constitutional: Well Nourished Eyes: Yes: Conjunctiva Clear HENT: Yes: Atraumatic Neck: Yes: Supple Cardiovascular: Yes: Regular Rate and Rhythm Respiratory: Yes: CTA Bilaterally ...Palpate: Yes: Soft. No: Firm/Rigid, Guarding, Hepatomegaly, Mass, Pulsatile Mass, Splenomegaly, Tenderness Labs: CBC, BMP 12/10/19 07:05 12/10/19 07:05 INR, PTT INR 1.04 (0.83-1.09) 12/10/19 07:05 Problem List - Problems (1) Abdominal pain Assessment/Plan: etiology unclear R> hypercoaguable w/u made aware to follow up with Dr Chun advance diet Code(s): R10.9 - UNSPECIFIED ABDOMINAL PAIN Qualifiers: Abdominal location: generalized Qualified Code(s): R10.84 - Generalized abdominal pain
[2019-12-10 14:10] VITALS: BP 122/79; PULSE 80; TEMP 98.2
--- NOTE | 2019-12-10 15:35 | PN ---
Progress Note, Physician History of Present Illness: Pt states he feels well. No abd pain/n/v, remains afebrile. B/L submandibular LN - previous CT Neck negative. - Current Medication List Current Medications: Active Medications Acetaminophen (Ofirmev Injection -) 1,000 mg IVPB Q6H PRN PRN Reason: MODERATE PAIN Last Admin: 12/10/19 04:18 Dose: 1,000 mg Documented by: Docusate Sodium (Colace -) 100 mg PO BID PRN PRN Reason: CONSTIPATION Heparin Sodium (Porcine) (Heparin -) 5,000 unit SQ TID BLEU Last Admin: 12/10/19 14:00 Dose: 5,000 unit Documented by: - Objective Vital Signs: Vital Signs Temperature 98.2 F 12/10/19 14:09 Pulse Rate 80 12/10/19 14:09 Respiratory Rate 18 12/10/19 14:09 Blood Pressure 122/79 12/10/19 14:09 O2 Sat by Pulse Oximetry (%) 97 12/10/19 14:09 Constitutional: Yes: No Distress, Calm Eyes: Yes: Conjunctiva Clear, EOM Intact Neck: Yes: Other (submandibular lymph nodes) Cardiovascular: Yes: Regular Rate and Rhythm Respiratory: Yes: Regular, CTA Bilaterally Gastrointestinal: Yes: Normal Bowel Sounds, Soft Genitourinary: Yes: WNL Edema: No Integumentary: Yes: WNL Neurological: Yes: Alert, Oriented Labs: CBC, BMP 12/10/19 07:05 12/10/19 07:05 INR, PTT INR 1.04 (0.83-1.09) 12/10/19 07:05 Lab Results WBC 12.2 K/mm3 (4.0-10.0) H 12/10/19 07:05 RBC 4.60 M/mm3 (4.00-5.60) 12/10/19 07:05 Hgb 14.4 GM/dL (11.7-16.9) 12/10/19 07:05 Hct 42.9 % (35.4-49) 12/10/19 07:05 MCV 93.3 fl (80-96) 12/10/19 07:05 MCHC 33.6 g/dl (32.0-35.9) 12/10/19 07:05 RDW 13.5 % (11.9-15.9) 12/10/19 07:05 Plt Count 277 K/MM3 (134-434) 12/10/19 07:05 INR 1.04 (0.83-1.09) 12/10/19 07:05 Sodium 140 mmol/L (136-145) 12/10/19 07:05 Potassium 3.6 mmol/L (3.5-5.1) 12/10/19 07:05 Chloride 107 mmol/L (98-107) 12/10/19 07:05 Carbon Dioxide 25 mmol/L (21-32) 12/10/19 07:05 Anion Gap 8 MMOL/L (8-16) 12/10/19 07:05 BUN 12.1 mg/dL (7-18) 12/10/19 07:05 Creatinine 0.8 mg/dL (0.55-1.3) 12/10/19 07:05 Random Glucose 85 mg/dL (74-106) 12/10/19 07:05 Calcium 8.6 mg/dL (8.5-10.1) 12/10/19 07:05 Blood Type A POSITIVE 12/08/19 18:20 Antibody Screen Negative 12/08/19 18:20 Microbiology 12/09/19 03:10 Blood - Peripheral Venous Blood Culture - Preliminary NO GROWTH OBTAINED AFTER 24 HOURS, INCUBATION TO CONTINUE FOR 4 DAYS. 12/09/19 03:15 Blood - Peripheral Venous Blood Culture - Preliminary NO GROWTH OBTAINED AFTER 24 HOURS, INCUBATION TO CONTINUE FOR 4 DAYS. Problem List - Problems (1) Lactic acid acidosis Code(s): E87.2 - ACIDOSIS (2) Abdominal pain Code(s): R10.9 - UNSPECIFIED ABDOMINAL PAIN Qualifiers: Abdominal location: generalized Qualified Code(s): R10.84 - Generalized abdominal pain (3) Leukocytosis Code(s): D72.829 - ELEVATED WHITE BLOOD CELL COUNT, UNSPECIFIED Assessment/Plan Abd pain/vomiting Leukocytosis Lactic acidosis Hx of Crohn's disease (?) Hx of abd hernia repair -- no Abd pain/vomiting , tolerated regular diet -- lactic acidosis resolved, wbc trended down off of antibiotics -- CT neck in 08/18 neg
--- NOTE | 2019-12-10 17:18 | DS ---
Physical Exam: SUBJECTIVE: Patient seen and examined 64yo M with no signifcant PMH wo had recent abd surgery (08/27/19 s/p ex lap with reapir of umbulical hernia ) presenting with diffuse abd pain. Now resolved and stable for dc home OBJECTIVE: Vital Signs Period Temp Pulse Resp BP Sys/Hurt Pulse Ox Last 24 Hr 98.2 F-99.3 F 70-80 18-20 121-131/65-88 94-98 PHYSICAL EXAM GENERAL: The patient is awake, alert, and fully oriented, in no acute distress. HEAD: Normal with no signs of trauma. EYES: PERRL, extraocular movements intact, sclera anicteric, conjunctiva clear. ENT: Ears normal, nares patent, oropharynx clear without exudates, moist mucous membranes. NECK: Trachea midline, full range of motion, supple. B/L submandibular LN - previous CT Neck negative. LUNGS: Breath sounds equal, clear to auscultation bilaterally, no wheezes, no crackles, no accessory muscle use. HEART: Regular rate and rhythm, S1, S2 without murmur, rub or gallop. ABDOMEN: Soft, nontender, nondistended, normoactive bowel sounds, no guarding, no rebound, no hepatosplenomegaly, no masses. EXTREMITIES: 2+ pulses, warm, well-perfused, no edema. NEUROLOGICAL: Cranial nerves II through XII grossly intact. Normal speech, gait not observed. PSYCH: Normal mood, normal affect. SKIN: Warm, dry, normal turgor, no rashes or lesions noted. LABS Laboratory Results - last 24 hr 12/09/19 12/10/19 12/10/19 03:15 07:05 07:05 WBC 12.2 H RBC 4.60 Hgb 14.4 Hct 42.9 MCV 93.3 MCH 31.3 MCHC 33.6 RDW 13.5 Plt Count 277 MPV 7.6 Absolute Neuts (auto) 8.9 H Neutrophils % 73.0 Lymphocytes % 16.6 D Monocytes % 9.2 Eosinophils % 0.8 D Basophils % 0.4 D Nucleated RBC % 0 ESR PT with INR 12.30 INR 1.04 Sodium Potassium Chloride Carbon Dioxide Anion Gap BUN Creatinine Est GFR (CKD-EPI)AfAm Est GFR (CKD-EPI)NonAf Random Glucose Calcium Magnesium Total Bilirubin AST ALT Alkaline Phosphatase C-Reactive Protein Total Protein Albumin COVID-19 (YAZMIN) Not detected 12/10/19 12/10/19 12/10/19 07:05 07:05 07:05 WBC RBC Hgb Hct MCV MCH MCHC RDW Plt Count MPV Absolute Neuts (auto) Neutrophils % Lymphocytes % Monocytes % Eosinophils % Basophils % Nucleated RBC % ESR 6 PT with INR INR Sodium 140 Potassium 3.6 Chloride 107 Carbon Dioxide 25 Anion Gap 8 BUN 12.1 Creatinine 0.8 Est GFR (CKD-EPI)AfAm 110.96 Est GFR (CKD-EPI)NonAf 95.74 Random Glucose 85 Calcium 8.6 Magnesium 1.8 Total Bilirubin 0.9 AST 25 ALT 22 Alkaline Phosphatase 62 C-Reactive Protein 0.6 H Total Protein 6.3 L Albumin 3.6 COVID-19 (YAZMIN) HOSPITAL COURSE: Date of Admission:12/09/19 Date of Discharge: 12/10/19 Problem List - Problems (1) Prophylactic measure Code(s): Z29.9 - ENCOUNTER FOR PROPHYLACTIC MEASURES, UNSPECIFIED (2) COVID-19 virus infection ruled out negative pcr Code(s): Z20.828 - CONTACT W AND EXPOSURE TO [facility] VIRAL COMMUNICABLE DISEASES (3) Abdominal pain resolved seen by MARILEE will ID w/u for hypercoaguable state tumor markers CEA, Ca19-9 PSA, ESR, CRP, S. Cerviscea IgG IgA, P ANCA sent and pending. Can f/u as outpt with Dr Amezquita if abnml EGD as an outpatient with Dr Chun will need close follow up with Dr Chun as an outpatient MR enterography and video capsule as an outpatient Code(s): R10.9 - UNSPECIFIED ABDOMINAL PAIN Qualifiers: Abdominal location: generalized Qualified Code(s): R10.84 - Generalized abdominal pain (4) Lactic acid acidosis resolved Code(s): E87.2 - ACIDOSIS Minutes to complete discharge: 40 Discharge Summary Problems reviewed: Yes Reason For Visit: ABDOMINAL PAIN, LACTIC ACID ACIDOSIS Current Active Problems Lactic acid acidosis (Acute) Leukocytosis (Acute) Prophylactic measure (Acute) Suspected COVID-19 virus infection (Acute) Condition: Improved - Instructions Diet, Activity, Other Instructions: DISCHARGE YOUR VISIT You came to the hospital because had abdominal pain and high white blood cell count and elevated lactic acid level. IV fluids were given and CT scan was done and no acute findings were seen. Your submandibular glands (under your chin) were swollen-a CT was done on your last admission that was unrevealing. To be thorough tumor markers were sent. The lab results are not back-if any results are abnormal you should make an appointment with the hemeatologist/oncologist for further testing. Keep your diet light over the next few days-avoid heavy meals. MEDICATIONS Please continue to take your home medications as prescribed. There was no changes DIET Continue your home diet ADDITIONAL CARE Please make an appointment to see your primary care provider, 2 week from today. ADDITIONAL INFORMATION Please call 911 or come directly to the emergency department if you experience unusual headache, vision change, shortness of breath, chest pain, numbness, tingling, loss of alertness/awareness, loss of function, unusual bleeding or any alarming symptoms. Thank you for allowing me to care for you. Claudy Gonzalez, [facility], [facility] [phone] Referrals: Christina Coello MD [Primary Care Provider] - (make appt if any labs are abnormal) Madelyn Burroughs MD [Staff Physician] - Disposition: HOME - Home Medications Comprehensive Discharge Medication List: Ambulatory Orders Balsalazide Disodium [Colazal (Nf) -] 4 cap PO BID 08/28/19 Docusate Sodium [Colace -] 100 mg PO BID PRN #10 capsule 10/04/19 Prescription Drug Monitoring Program (I-STOP) results: I-STOP not reviewed Problem List - Problems (1) Prophylactic measure Code(s): Z29.9 - ENCOUNTER FOR PROPHYLACTIC MEASURES, UNSPECIFIED (2) Abdominal pain Code(s): R10.9 - UNSPECIFIED ABDOMINAL PAIN Qualifiers: Abdominal location: generalized Qualified Code(s): R10.84 - Generalized abdominal pain (3) Lactic acid acidosis Code(s): E87.2 - ACIDOSIS (4) COVID-19 ruled out Code(s): Z03.818 - ENCNTR FOR OBS FOR SUSP EXPSR TO OTH BIOLG AGENTS RULED OUT This patient is new to me today: No Emergency Visit: Yes ED Registration Date: 12/09/19 Care time: The patient presented to the Emergency Department on the above date and was hospitalized for further evaluation of their emergent condition. Critical Care patient: No - Discharge Referral Referred to [facility] Med [facility] No
[2019-12-11 16:08] LABS: HOMOCYSTINE-PLASMA OR SERUM 17.1 umol/L (0.0-17.2)
[2019-12-12 16:08] LABS: ATYPICAL pANCA <1:20 titer (Neg:<1:20); C-ANCA <1:20 titer (Neg:<1:20)
== END 2019-12-10 18:44 | disposition home or self-care (01) | DRG 251 ==
LOC: JER 17:02 → JERBED 12-09 02:56 → J6S 12-09 15:40
PROVIDERS: ADMIT Internal Medicine; ATTEND Nurse Practitioner Acute Care
DX: R10.84 Generalized abdominal pain (principal); E87.2 Acidosis; E87.1 Hypo-osmolality and hyponatremia; K52.9 Noninfective gastroenteritis and colitis, unspecified; Z87.891 Personal history of nicotine dependence; R74.01 Elevation of levels of liver transaminase levels; D72.829 Elevated white blood cell count, unspecified; Z20.828 Contact with and (suspected) exposure to other viral communicable diseases; Z88.0 Allergy status to penicillin
CPT/HCPCS: 36415; 71046-TC-FY; 74177-TC; 80053; 81003; 81241; 82550; 83090; 83520; 83605; 83690; 83735; 84100; 84132; 84153; 84484; 85025; 85300; 85303; 85610; 85651; 85730; 86140; 86256; 86301; 86850; 86900; 86901; 87040; 93005; 93010; 99285-25; C9803; J0131; J1644; Q9967; U0003

== ENCOUNTER 2021-08-09 16:16 | Observation (INO) | payer OTHER ==
[2021-08-09 16:47] VITALS: BMI 26.6
[2021-08-09] MEDS ORDERED: FAMOTIDINE 20 MG/50 ML IVPB 20 MG/50 ML MG IVPB ONE ×2 (17:52→18:22)
[2021-08-09] MEDS ORDERED: SODIUM CHLORIDE 1,000 ML IV STA (17:53)
[2021-08-09] MEDS ORDERED: ACETAMINOPHEN 1000 MG/100 ML BAG IVPB ONE (17:54)
[2021-08-09] MEDS ORDERED: MAG HYDROX/AL HYDROX/SIMETH 30 ML UNIT-DOSE CUP PO ONE (18:10)
[2021-08-09] MEDS ORDERED: ONDANSETRON 4 MG/2 ML VIAL IVPUSH ONE (18:11)
[2021-08-09] MEDS ORDERED: ACETAMINOPHEN INJECTION 100 ML IVPB ONE (18:21)
[2021-08-09] MEDS ORDERED: MAG HYDROX/AL HYDROX/SIMETH 30 ML UNIT-DOSE CUP ONE (18:21)
[2021-08-09] MEDS ORDERED: ONDANSETRON 4 MG/2 ML VIAL ONE (18:22)
[2021-08-09 18:25] LABS: BASO % 0.4 % (0-2.0); HEMOGLOBIN 15.4 GM/dL (11.7-16.9); LYMPH % 2.5 % (8-40); MCH 31.4 pg (25.7-33.7); MCHC 34.2 g/dl (32.0-35.9); MEAN CELL VOLUME 91.7 fl (80-96); MEAN PLT VOLUME 7.4 fl (7.5-11.1); MONO % 8.2 % (3.8-10.2); NEUT % 88.9 % (42.8-82.8); PLATELET COUNT 256 10^3/uL (134-434); RBC 4.91 M/mm3 (4.00-5.60); WHITE BLOOD COUNT 11.6 K/mm3 (4.0-10.0)
[2021-08-09] MEDS ORDERED: PANTOPRAZOLE SODIUM 40 MG VIAL IVPUSH ONE (18:25)
[2021-08-09] MEDS ORDERED: PANTOPRAZOLE SODIUM 40 MG VIAL ONE (18:29)
[2021-08-09 18:47] LABS: ALBUMIN 4.1 g/dl (3.4-5.0); CALCIUM 9.2 mg/dL (8.5-10.1)
[2021-08-09 18:48] LABS: BLOOD UREA NITROGEN 15.6 mg/dL (7-18)
[2021-08-09] MEDS ORDERED: morphine CARPU-JECT 4 MG/1 ML DISP.SYRIN IVPUSH ONE (18:49)
[2021-08-09] MEDS ORDERED: morphine SULFATE 4 MG/ML VIAL ONE (18:51)
[2021-08-09 18:52] LABS: TOT PROT 7.3 g/dl (6.4-8.2)
[2021-08-09 19:03] LABS: LACTIC ACID 2.2 mmol/L (0.4-2.0)
[2021-08-09 19:36] LABS: EPI CELLS 18 /uL (0-25.1); HYALINE CASTS 1 /uL (0-3.1); URINE APPEARANCE CLEAR; URINE BACTERIA 5 /uL (0-1359); URINE BILIRUBIN NEGATIVE (NEGATIVE); URINE COLOR YELLOW; URINE GLUCOSE (UA) NEGATIVE (NEGATIVE); URINE KETONE 4+ (NEGATIVE); URINE LEUK ESTERASE NEGATIVE (NEGATIVE); URINE NITRITE NEGATIVE (NEGATIVE); URINE PROTEIN TRACE (NEGATIVE); URINE RBC 393 /uL (0-23.9); URINE UROBILINOGEN 0.2 mg/dL (0.2-1.0); URINE WBC 30 /uL (0-25.8)
[2021-08-10 00:35] LABS: BASO % 0.3 % (0-2.0); HEMATOCRIT 40.8 % (35.4-49); HEMOGLOBIN 14.3 GM/dL (11.7-16.9); INR 1.2 (0.83-1.09); LYMPH % 4.3 % (8-40); MCH 32.1 pg (25.7-33.7); MCHC 35.1 g/dl (32.0-35.9); MEAN CELL VOLUME 91.4 fl (80-96); MEAN PLT VOLUME 7.5 fl (7.5-11.1); MONO % 4.6 % (3.8-10.2); NEUT % 90.8 % (42.8-82.8); PLATELET COUNT 247 10^3/uL (134-434); PROTHROMBIN TIME (PATIENT) 13.8 SEC (9.7-13.0); RBC 4.47 M/mm3 (4.00-5.60); RDW 13.1 % (11.9-15.9); WHITE BLOOD COUNT 8.7 K/mm3 (4.0-10.0)
[2021-08-10 00:37] LABS: ACTIVATED PTT 31.2 SECONDS (25.2-36.5)
[2021-08-10 07:58] LABS: HEMATOCRIT 42.4 % (35.4-49); HEMOGLOBIN 14.5 GM/dL (11.7-16.9); MCH 31.7 pg (25.7-33.7); MCHC 34.3 g/dl (32.0-35.9); MEAN CELL VOLUME 92.6 fl (80-96); MEAN PLT VOLUME 7.5 fl (7.5-11.1); PLATELET COUNT 250 10^3/uL (134-434); RBC 4.57 M/mm3 (4.00-5.60); RDW 13.6 % (11.9-15.9); WHITE BLOOD COUNT 10.1 K/mm3 (4.0-10.0)
[2021-08-10 08:13] LABS: INR 1.16 (0.83-1.09); PROTHROMBIN TIME (PATIENT) 13.4 SEC (9.7-13.0)
[2021-08-10 09:25] LABS: CALCIUM 8.7 mg/dL (8.5-10.1)
[2021-08-10 09:26] LABS: ALBUMIN 3.8 g/dl (3.4-5.0); BLOOD UREA NITROGEN 12.3 mg/dL (7-18); MAGNESIUM 2.1 mg/dL (1.8-2.4)
[2021-08-10 09:29] LABS: CREATININE 0.8 mg/dL (0.55-1.3); PHOSPHOROUS 4.2 mg/dL (2.5-4.9)
[2021-08-10 09:30] LABS: BILIRUBIN,TOTAL 0.6 mg/dL (0.2-1); TOT PROT 6.7 g/dl (6.4-8.2)
[2021-08-10 11:13] LABS: ANISOCYTOSIS 0; HELMET CELLS 0; HOWELL-JOLLY BODIES 0; MACROCYTOSIS 0; OVALOCYTE 0; ROULEAU 0; SICKELED CELLS 0; TARGET CELLS 0; TEAR DROP CELLS 0; TOXIC GRANULATION 0
[2021-08-10 15:59] VITALS: BP 116/83; PULSE 88; TEMP 98
[2021-08-11] MEDS ORDERED: ENOXAPARIN NA (PORCINE) 40 MG/0.4 ML DISP.SYRIN SQ SCH (10:00)
== END 2021-08-10 17:30 | disposition home or self-care (01) ==
LOC: JER 16:16 → JERBED 22:53 → J8W 08-10 07:12
PROVIDERS: ADMIT Internal Medicine; ATTEND Internal Medicine
PROC: 3E033NZ Introduction of Analgesics, Hypnotics, Sedatives into Peripheral Vein, Percutaneous Approach (ICD-10-PCS; principal; 2021-08-09)
PROC: 3E033GC Introduction of Other Therapeutic Substance into Peripheral Vein, Percutaneous Approach (ICD-10-PCS; 2021-08-09)
PROC: 3E0337Z Introduction of Electrolytic and Water Balance Substance into Peripheral Vein, Percutaneous Approach (ICD-10-PCS; 2021-08-09)
DX: U07.1 COVID-19 (principal); R05.9 Cough, unspecified; R11.10 Vomiting, unspecified; K50.90 Crohn's disease, unspecified, without complications; R61 Generalized hyperhidrosis; R10.84 Generalized abdominal pain; Z88.0 Allergy status to penicillin
CPT/HCPCS: 36415; 71045-TC-FY; 74174-TC; 80053; 81003; 83605; 83690; 83735; 84100; 84484; 85025; 85027; 85610; 85730; 87086; 93005; 93010; 99285-25; C9803-CS; G0378; U0003; U0005

== ENCOUNTER 2022-11-16 16:29 | Emergency (ER) | payer OTHER ==
[2022-11-16 16:57] VITALS: TEMP 98.6; BMI 25.8
[2022-11-16] MEDS ORDERED: MAG HYDROX/AL HYDROX/SIMETH 30 ML UNIT-DOSE CUP PO ONE (17:26)
[2022-11-16] MEDS ORDERED: ACETAMINOPHEN 1000 MG/100 ML BAG IVPB ONE (17:26)
[2022-11-16] MEDS ORDERED: FAMOTIDINE 20 MG/50 ML IVPB 20 MG/50 ML MG IVPB ONE ×2 (17:26→17:52)
[2022-11-16] MEDS ORDERED: SUCRALFATE 1 GM TABLET (FP) PO ONE (17:26)
[2022-11-16] MEDS ORDERED: ONDANSETRON 4 MG/2 ML VIAL IVPUSH ONE (17:27)
[2022-11-16] MEDS ORDERED: ONDANSETRON 4 MG/2 ML VIAL ONE (17:52)
[2022-11-16] MEDS ORDERED: ACETAMINOPHEN INJECTION 100 ML IVPB ONE (17:52)
[2022-11-16] MEDS ORDERED: PANTOPRAZOLE SODIUM 40 MG VIAL IVPUSH ONE (17:53)
[2022-11-16] MEDS ORDERED: PANTOPRAZOLE SODIUM 40 MG VIAL ONE (17:56)
[2022-11-16 18:01] LABS: BASO % 0.2 % (0-2.0); LYMPH % 4.1 % (8-40); MCH 31.3 pg (25.7-33.7); MCHC 34.9 g/dl (32.0-35.9); MEAN CELL VOLUME 89.8 fl (80-96); MEAN PLT VOLUME 7.7 fl (7.5-11.1); MONO % 5.5 % (3.8-10.2); NEUT % 90.2 % (42.8-82.8); PLATELET COUNT 301 10^3/uL (134-434); RBC 5.12 M/mm3 (4.00-5.60); RDW 13.9 % (11.9-15.9); WHITE BLOOD COUNT 23.7 K/mm3 (4.0-10.0)
[2022-11-16 18:07] LABS: INR 1.13 (0.83-1.09); PROTHROMBIN TIME (PATIENT) 13.1 SEC (9.7-13.0)
[2022-11-16 18:09] LABS: ACTIVATED PTT 28.6 SECONDS (25.2-36.5)
[2022-11-16 18:29] LABS: CHLORIDE 101 mmol/L (98-107); SODIUM 129 mmol/L (136-145)
[2022-11-16 18:32] LABS: ALBUMIN 3.7 g/dl (3.4-5.0); BLOOD UREA NITROGEN 22.3 mg/dL (7-18); CO2 22 mmol/L (21-32); GLUCOSE,RANDOM 120 mg/dL (74-106); LIPASE 1013 U/L (73-393)
[2022-11-16] MEDS ORDERED: SODIUM CHLORIDE 0.9% 500 ML INFUS.BAG IV ONE (18:32)
[2022-11-16 18:35] LABS: CREATININE 1.2 mg/dL (0.55-1.3)
[2022-11-16 18:36] LABS: TOT PROT 8.7 g/dl (6.4-8.2)
[2022-11-16 18:38] LABS: ALK PHOS 76 U/L (45-117)
[2022-11-16 18:40] LABS: LACTIC ACID 2.2 mmol/L (0.4-2.0)
[2022-11-16 18:41] LABS: ANION GAP 6 MMOL/L (8-16); POTASSIUM > 10.0 mmol/L (3.5-5.1)
[2022-11-16] MEDS ORDERED: morphine CARPU-JECT 2 MG/1 ML DISP.SYRIN IVPUSH ONE (19:03)
[2022-11-16] MEDS ORDERED: morphine SULFATE 4 MG/ML VIAL ONE (19:38)
[2022-11-16 20:11] VITALS: RESP 16
[2022-11-16 21:15] VITALS: BP 128/75; PULSE 102
[2022-11-16 21:41] LABS: EPI CELLS 7 /uL (0-25.1); HYALINE CASTS 0 /uL (0-3.1); URINE APPEARANCE CLEAR; URINE BACTERIA 2 /uL (0-1359); URINE BILIRUBIN NEGATIVE (NEGATIVE); URINE COLOR YELLOW; URINE GLUCOSE (UA) NEGATIVE (NEGATIVE); URINE KETONE 1+ (NEGATIVE); URINE LEUK ESTERASE NEGATIVE (NEGATIVE); URINE NITRITE NEGATIVE (NEGATIVE); URINE PROTEIN 1+ (NEGATIVE); URINE RBC 213 /uL (0-23.9); URINE UROBILINOGEN 0.2 mg/dL (0.2-1.0); URINE WBC 28 /uL (0-25.8)
[2022-11-16 21:44] LABS: POTASSIUM 3.5 mmol/L (3.5-5.1)
[2022-11-16 21:46] LABS: BLOOD UREA NITROGEN 19.8 mg/dL (7-18); CALCIUM 8.1 mg/dL (8.5-10.1)
[2022-11-16 21:50] LABS: CREATININE 0.8 mg/dL (0.55-1.3)
== END 2022-11-17 00:31 | disposition home or self-care (01) ==
LOC: JER 16:29
PROC: 3E033GC Introduction of Other Therapeutic Substance into Peripheral Vein, Percutaneous Approach (ICD-10-PCS; principal; 2022-11-16)
PROC: 3E033GC Introduction of Other Therapeutic Substance into Peripheral Vein, Percutaneous Approach (ICD-10-PCS; 2022-11-16)
PROC: 3E033GC Introduction of Other Therapeutic Substance into Peripheral Vein, Percutaneous Approach (ICD-10-PCS; 2022-11-16)
PROC: 3E033GC Introduction of Other Therapeutic Substance into Peripheral Vein, Percutaneous Approach (ICD-10-PCS; 2022-11-16)
PROC: 3E033GC Introduction of Other Therapeutic Substance into Peripheral Vein, Percutaneous Approach (ICD-10-PCS; 2022-11-16)
DX: R10.84 Generalized abdominal pain (principal); R11.10 Vomiting, unspecified; R00.0 Tachycardia, unspecified
CPT/HCPCS: 36415; 71045-TC-FY; 74177-TC; 76705-TC; 80048; 80053; 81003; 83605; 83690; 84484; 85025; 85610; 85730; 87086; 93005; 93010; Q9967